=== PATIENT | female | born 1955 | race Caucasian/White ===

== ENCOUNTER 2020-05-25 12:35 | Outpatient (REF) | payer MEDICARE, OTHER, SELFPAY ==
--- NOTE | ~2020-05-25 | XR_ITS ---
EXAMINATION: XR SHOULDER, LEFT CLINICAL INFORMATION: Pain COMPARISON: None TECHNIQUE: AP external rotation, Grashey, scapular Y, and axillary views of the left shoulder. FINDINGS: No fracture or dislocation. The glenohumeral joint is well aligned. The joint space is maintained with small marginal osteophytes. The acromioclavicular joint is intact with mild hypertrophic degenerative change. The visualized ribs are intact. The visualized lung is clear. XR/XR shoulder LT min 2V IMPRESSION: Mild degenerative changes at the left shoulder.
== END 2020-05-25 12:36 | disposition home or self-care (01) ==
LOC: HO.XRAY 12:35
PROVIDERS: PCP Internal Medicine; Visit Provider Internal Medicine
DX: M25.512 Pain in left shoulder (principal)
CPT/HCPCS: 73030

== ENCOUNTER → 2020-08-08 14:01 | Outpatient (BNVA) | payer MEDICARE, OTHER, SELFPAY | PROVIDERS: PCP Internal Medicine; Visit Provider Urology | DX: N32.81 Overactive bladder (principal) | CPT/HCPCS: 99202 ==

== ENCOUNTER 2021-03-06 10:00 | Outpatient (REF) | payer MEDICARE, OTHER, SELFPAY ==
--- NOTE | ~2021-03-06 | CT_ITS ---
EXAMINATION: CT CHEST SCREENING CLINICAL INFORMATION: Smoker. One pack per day for 40 years. COMPARISON: CT chest 08/25/2019. TECHNIQUE: Multidetector volumetric CT imaging of the chest is performed without contrast using low dose technique. Additional 2D coronal and sagittal reformatted images and axial 3D maximum intensity projection (MIP) images are generated on the CT workstation. This CT examination was performed using dose optimization techniques as appropriate, variously including the following: *Automated exposure control *Adjustment of mA and/or kV according to patient size (this includes techniques or standardized protocols for targeted exams where dose is matched to indication/reason for exam; i.e. extremities or head) *Use of iterative reconstruction technique DLP: 50. mGy-cm FINDINGS: LUNGS: The lungs are well expanded and clear of acute pneumonic consolidation. There are clusters a small scattered nodules in the right lower lobe measuring 2-3 mm on axial image 246/6 through 254/6, 2 mm nodule right lower lobe axial image 274/6. No additional nodules seen. MEDIASTINUM: The thyroid lobes are symmetric and normal. The central trachea and the bronchi are widely patent. Heart size and the great vessels are normal caliber. No abnormal-sized mediastinal hilar lymph nodes seen. There is no pericardial effusion. PLEURA: There is no pleural effusion. No pleural mass or thickening. AXILLA: The axilla are bilaterally unremarkable. The chest wall is unremarkable. UPPER ABDOMEN: There are several hypodense liver lesions segment 6 and segment 8. There is focal fatty deposition posterior and superior to right hemidiaphragm. Question Bochdalek hernia. OSSEOUS STRUCTURES: No lytic or sclerotic process seen. CT/CT lung screening IMPRESSION: Stable scattered clustered of nodules right lower lobe. Fatty deposition posterior and superior to right hemidiaphragm, question Bochdalek hernia, stable. Hypodense lesion in the right and left hepatic lobe are stable, likely cyst. ASSESSMENT: Lung-RADS category 2: Benign RECOMMENDATION: Low-dose annual CT chest
--- NOTE | ~2021-03-06 | XR_ITS ---
EXAMINATION: XR SHOULDER, LEFT CLINICAL INFORMATION: Left shoulder pain. COMPARISON: 4 views of the left shoulder were obtained. TECHNIQUE: AP external rotation, Grashey, scapular Y, and axillary views of the left shoulder. FINDINGS: Mild left acromio clavicular degenerative joint changes are seen. There is no acute fracture or dislocation. The soft tissues are unremarkable. XR/XR shoulder LT min 2V IMPRESSION: Mild left acromioclavicular degenerative joint changes. No acute abnormality.
== END 2021-03-06 10:01 | disposition home or self-care (01) ==
LOC: HO.CT 10:00
PROVIDERS: PCP Internal Medicine; Visit Provider Physician Assistant Medical
DX: Z12.2 Encounter for screening for malignant neoplasm of respiratory organs (principal); F17.200 Nicotine dependence, unspecified, uncomplicated; M25.512 Pain in left shoulder
CPT/HCPCS: 71271; 73030

== ENCOUNTER 2021-04-17 10:07 | Outpatient (REF) | payer MEDICARE, OTHER, SELFPAY ==
[2021-04-17 10:43] LABS: MANUAL DIFF FLAG NO
[2021-04-17 10:48] LABS: Basophils Percent Auto 0.6 % (0-2); Eosinophils Absolute Auto 0.2 X10*3/uL (0.0-0.4); Eosinophils Percent Auto 2.7 % (0-4); Hematocrit 39.6 % (37.0-47.0); Hemoglobin 12.7 g/dl (12.0-16.0); Imm Gran Abs Auto 0.01 X10*3/uL (0.00-0.03); Imm Gran Pct Auto 0.2 % (0.0-0.4); Lymphocytes Absolute Auto 1.6 X10*3/uL (1.2-4.9); Mean Corpuscular HGB Conc 32.1 g/dl (31.0-35.0); Mean Corpuscular Hemoglobin 29.3 pg (27.0-33.0); Mean Corpuscular Volume 91.2 fL (80.0-98.0); Mean Platelet Volume 10.2 fL (9.4-12.3); Monocytes Absolute Auto 0.5 X10*3/uL (0.1-1.2); Monocytes Percent Auto 7.5 % (2-11); Neutrophils Absolute Auto 4.1 x10*3/uL (2.0-8.3); Platelet Count 233 X10*3/uL (160-400); Red Blood Count 4.34 X10*6/uL (4.20-5.50); Red Cell Distribution Width 13.7 % (11.0-16.0); White Blood Count 6.4 X10*3/uL (4.8-10.8)
[2021-04-17 10:56] LABS: Estimated Average Glucose 140 mg/dL; Hemoglobin A1c % 6.5 %
[2021-04-17 11:19] LABS: Alanine Aminotransferase 20 U/L (0-31); Albumin Level 4.1 g/dL (3.5-5.0); Alkaline Phosphatase 83 U/L (39-117); Anion Gap 16 (12-20); Aspartate Amino Transferase 17 U/L (5-31); Bilirubin Total 0.4 mg/dL (0.0-1.0); Blood Urea Nitrogen 11 mg/dL (9-16); Calcium 9.6 mg/dL (8.4-10.2); Carbon Dioxide 27 mmol/L (22-29); Chloride 100 mmol/L (96-108); Cholesterol 244 mg/dL; Estimated Glomerular Filt Rate > 60; Glucose Fasting 124 mg/dL (60-99); HDL Cholesterol 55 mg/dL; LDL Cholesterol Calculated 156 mg/dl; Potassium 4.7 mmol/L (3.3-5.1); Sodium 138 mmol/L (135-145); Total Protein 6.6 g/dL (6.5-8.0); Triglycerides 167 mg/dL
[2021-04-17 12:36] LABS: Creatinine Urine 16.42 mg/dL; Microalbumin Urine < 5.0 mg/L
== END 2021-04-17 10:08 | disposition home or self-care (01) ==
LOC: HO.LAB 10:07
PROVIDERS: PCP Internal Medicine; Visit Provider Internal Medicine
DX: Z00.00 Encounter for general adult medical examination without abnormal findings (principal); E11.9 Type 2 diabetes mellitus without complications; E03.9 Hypothyroidism, unspecified
CPT/HCPCS: 36415; 80053; 80061; 82043; 83036; 84443; 85025

== ENCOUNTER 2021-08-15 08:57 | Outpatient (REF) | payer MEDICARE, OTHER, SELFPAY ==
[2021-08-15 09:56] LABS: Estimated Average Glucose 137 mg/dL; Hemoglobin A1c % 6.4 %
[2021-08-15 10:09] LABS: Cholesterol 223 mg/dL; Glucose Fasting 139 mg/dL (60-99); HDL Cholesterol 56 mg/dL; LDL Cholesterol Calculated 128 mg/dl; Triglycerides 197 mg/dL
== END 2021-08-15 08:58 | disposition home or self-care (01) ==
LOC: HO.LAB 08:57
PROVIDERS: PCP Internal Medicine; Visit Provider Internal Medicine
DX: Z00.00 Encounter for general adult medical examination without abnormal findings (principal); E11.65 Type 2 diabetes mellitus with hyperglycemia
CPT/HCPCS: 36415; 80061; 82947; 83036

== ENCOUNTER 2022-02-27 11:17 | Outpatient (REF) | payer MEDICARE, OTHER, SELFPAY ==
[2022-02-27 12:29] LABS: Estimated Average Glucose 131 mg/dL; Hemoglobin A1c % 6.2 %
[2022-02-27 12:55] LABS: Cholesterol 197 mg/dL; Glucose Fasting 115 mg/dL (60-99); HDL Cholesterol 59 mg/dL; LDL Cholesterol Calculated 114 mg/dl; Triglycerides 122 mg/dL
== END 2022-02-27 11:18 | disposition home or self-care (01) ==
LOC: HO.LAB 11:17
PROVIDERS: PCP Internal Medicine; Visit Provider Internal Medicine
DX: E78.5 Hyperlipidemia, unspecified (principal); E11.65 Type 2 diabetes mellitus with hyperglycemia; N28.9 Disorder of kidney and ureter, unspecified
CPT/HCPCS: 36415; 80061; 82947; 83036

== ENCOUNTER 2022-09-16 07:52 | Outpatient (REF) | payer MEDICARE, OTHER, SELFPAY ==
[2022-09-16 08:30] LABS: Estimated Average Glucose 128 mg/dL; Hemoglobin A1c % 6.1 %
[2022-09-16 08:56] LABS: Alanine Aminotransferase 16 U/L (0-31); Albumin Level 3.9 g/dL (3.5-5.0); Alkaline Phosphatase 78 U/L (39-117); Anion Gap 10 (12-20); Aspartate Amino Transferase 15 U/L (5-31); Bilirubin Total 0.3 mg/dL (0.0-1.0); Blood Urea Nitrogen 6 mg/dL (9-16); Carbon Dioxide 27 mmol/L (22-29); Chloride 105 mmol/L (96-108); Cholesterol 173 mg/dL; Estimated Glomerular Filt Rate > 60; Glucose Fasting 136 mg/dL (60-99); HDL Cholesterol 55 mg/dL; LDL Cholesterol Calculated 102 mg/dl; Potassium 4.4 mmol/L (3.3-5.1); Sodium 138 mmol/L (135-145); Total Protein 6.3 g/dL (6.5-8.0); Triglycerides 80 mg/dL
== END 2022-09-16 07:53 | disposition home or self-care (01) ==
LOC: HO.LAB 07:52
PROVIDERS: PCP Internal Medicine; Visit Provider Internal Medicine
DX: N28.9 Disorder of kidney and ureter, unspecified (principal); R73.9 Hyperglycemia, unspecified; E78.5 Hyperlipidemia, unspecified
CPT/HCPCS: 36415; 80053; 80061; 83036

== ENCOUNTER 2022-09-19 09:38 | Outpatient (AMB) | payer MEDICARE, OTHER, SELFPAY ==
[2022-09-19 09:41] VITALS: BP 118/74; PULSE 90; O2SAT 99; BMI 31.7
--- NOTE | 2022-09-19 09:41 | MHC.PC.OV ---
Vital Signs 09/19/22 09:41 Height 5 ft 3 in Weight 179 lb BMI 31.7 BP 118/74 Blood Pressure Location Lt brachial Position Sitting Pulse 90 Pulse Source Pulse Oximeter Temp Source Skin Pulse Oximetry (%) 99 Oxygen Delivery Method Room Air Intake Visit Reasons: 3 month f/u DM Allergies SEASONAL ALLERGIES Allergy (Unknown, Uncoded 09/19/22 09:43) SNEEZING,ITCHY NOSE Medication List - Last Reconciled 09/19/22 by Donovan Medrano MD aspirin (Adult Aspirin Regimen) 81 mg PO DAILY atorvastatin 80 mg PO DAILY fluoxetine 40 mg (2 x 20 mg) PO DAILY lisinopril 10 mg PO DAILY metformin 500 mg PO BID omeprazole 20 mg PO DAILY tramadol 50 mg PO Q6H PRN valacyclovir 1,000 mg PO BID Tobacco use date assessed: 09/19/22 Fall risk assessment: No Falls in past year Last assessed Fall Risk: 09/19/22 Dental Screening Did you have a dental visit in the last 12 months?: Yes Did you have a dental problem in the last 6 months where you did not have access to dental care?: No Was dental information given to patient?: Patient has dentist HPI 3 month f/u DM HPI Details DM HTN and hyperlipidemia; compliant [facility] Medical History (Updated 05/29/22 @ 12:22 by Donovan Medrano MD) Diabetes mellitus Hyperlipidemia Obesity Type 2 diabetes mellitus with obesity Surgical History History of section History of hysterectomy Family History Father No problems noted. Mother No problems noted. Social History Housing: House Alcohol intake: current Alcohol intake frequency: a few times a week Patient Tobacco Use Status: Current everyday Tobacco user Tobacco use type: Cigarette Cigarette Packs Per Day: 1 Cigarettes Per Day: 20 e-Cigarette/Vaping Use: Never Used Second Hand Smoke Exposure: Yes service: No Current occupational status: retired Cognitive needs: No Hearing needs: No Vision needs: Yes (glasses) Questionnaire PHQ-9 Over the last 2 weeks, how often have you been bothered by any of the following problems? Depression Screening Interpretation: Negative Source: Developed by Drs. Levon LMagdalene Shultz Kurt Kroenke and colleagues, with an educational jigna from [employer]. Thrive Questionnaire Date Thrive assessed: 05/29/22 Currently or been in a relationship where the following occur: no concerns reported AUDIT C Alcohol Use Questionnaire (AUDIT-C) 1. How often do you have a drink containing alcohol?: 4 or more times a week 2. How many drinks containing alcohol do you have on a typical day when you are drinking?: 5 or 6 3. How often do you have six or more drinks on one occasion?: Never Total Score: 6 KAYLIE-7 AMB Questionnaire KAYLIE-7 Date KAYLIE - 7 assessed: 05/29/22 Source: Developed by Magadlene Trevino Kurt Kroenke and colleagues, with an educational jigna from [employer]. Review of Systems Const Denies chills, Denies headache(s) and Denies weight loss ENT Denies headache(s) Card Denies chest pain, Denies syncope, Denies irregular heart rhythm and Denies dyspnea Resp Denies chest congestion, Denies cough and Denies dyspnea GI Denies abdominal pain, Denies change in stool character, Denies nausea and Denies vomiting Musc Denies deformity and Denies joint swelling Neuro Denies syncope and Denies headache(s) Physical exam (Primary Care) Vital Signs: Last Vital Signs Pulse 90 09/19/22 09:41 BP 118/74 09/19/22 09:41 Pulse Ox 99 09/19/22 09:41 Oxygen Delivery Method Room Air 09/19/22 09:41 BMI result Body Mass Index 31.7 obesity BMI Assessment/Plan discussion: High BMI High, discussed plan: lifestyle, weight reduction and dietary Tobacco/Smoking Status: Tobacco use Status Tobacco use date assessed 09/19/22 09/19/22 09:45 Patient Tobacco Use Status Current everyday Tobacco 09/19/22 09:45 Tobacco use type Cigarette 09/19/22 09:45 e-Cigarette/Vaping Use Never Used 09/19/22 09:45 Depression Screening Interpretation: Negative Thrive Assessment: Date of Thrive Assessment Date Thrive assessed 05/29/22 09/19/22 09:45 Currently or been in a relationship where the following occur: no concerns reported Const General: cooperative and comfortable Chest Chest palpation & inspection: normal inspection of the chest Resp Auscultation: clear to auscultation bilaterally Percussion: percussion normal Cardio Jugular venous distension: no JVD Rate: regular rate Rhythm: regular rhythm Assessment and Plan Assessment & Plan (1) Hypertension: Code(s): I10 - Essential (primary) hypertension Plan: stable; samr rx (2) Hyperlipidemia: Code(s): E78.5 - Hyperlipidemia, unspecified Plan: stable; same rx (3) Type 2 diabetes mellitus with obesity: Code(s): E11.69 - Type 2 diabetes mellitus with other specified complication; E66.9 - Obesity, unspecified Plan: stable Orders: Orders Comprehensive Cle[place]. Panel Fast Today N28.9 - Disorder of kidney and ureter, unspecified Glucose Fasting Today R73.9 - Hyperglycemia, unspecified Thyroid Stimulating Hormone Today E03.9 - Hypothyroidism, unspecified Microalbumin, Random (w Creat) Today E11.69 - Type 2 diabetes mellitus with other specified complication, E66.01 - Morbid (severe) obesity due to excess calories Complete Blood Count Auto Diff Today D64.9 - Anemia, unspecified Hemoglobin A1c Today R73.9 - Hyperglycemia, unspecified Coding Level of Care Code Est Pt Level 4 (14132) Diagnoses Hypertension I10 Hyperlipidemia E78.5 Type 2 diabetes mellitus with obesity E11.69; E66.9
== END 2022-09-19 09:54 | disposition home or self-care (01) ==
PROVIDERS: PCP Internal Medicine; Visit Provider Internal Medicine
DX: I10 Essential (primary) hypertension (principal); E11.69 Type 2 diabetes mellitus with other specified complication; E66.9 Obesity, unspecified; Z68.31 Body mass index [BMI] 31.0-31.9, adult; E78.5 Hyperlipidemia, unspecified
CPT/HCPCS: 99214

== ENCOUNTER 2023-01-15 08:28 | Outpatient (REF) | payer MEDICARE, OTHER, SELFPAY ==
--- NOTE | ~2023-01-15 | CT_ITS ---
EXAMINATION: CT CHEST SCREENING CLINICAL INFORMATION: Smoker with 50 pack-year history. COMPARISON: Previous CTs, most recent, 03/06/2021 TECHNIQUE: Multidetector volumetric CT imaging of the chest is performed without contrast using low dose technique. Additional 2D coronal and sagittal reformatted images and axial 3D maximum intensity projection (MIP) images are generated on the CT workstation. This CT examination was performed using dose optimization techniques as appropriate, variously including the following: *Automated exposure control *Adjustment of mA and/or kV according to patient size (this includes techniques or standardized protocols for targeted exams where dose is matched to indication/reason for exam; i.e. extremities or head) *Use of iterative reconstruction technique DLP: 51 mGy-cm FINDINGS: IMPLEMENT MECHANIC: Clear lungs. Scoliosis. LUNGS: Trachea and bronchi are patent. Mild centrilobular emphysema. Several interval nodular opacities right middle lobe, largest 6 mm, 6:326. Increasing RML irregular reticulonodular opacities, axial images 6:325-355. On sagittal image 8:97, the more superior reticulonodular opacity with pleural extension measures 1.5 cm cm with somewhat branching pattern, and on 8:98, more inferior 1.0 cm nodular opacity demonstrates tethering to the pleura. Cluster of nodules in the right lower lobe have resolved. MEDIASTINUM: Unremarkable thyroid. No pathologic lymphadenopathy. Nonenlarged heart. Mild pericardial thickening/fluid. Atherosclerotic calcifications nonaneurysmal aorta. Nonenlarged pulmonary arteries. CORONARY ARTERY CALCIFICATION: Mild. PLEURA: There is no pleural effusion. No pleural mass or thickening. AXILLA: No pathologic lymphadenopathy. UPPER ABDOMEN: Redemonstration multiple hepatic hypodensities. Right Bochdalek again suspected. OSSEOUS STRUCTURES: No suspicious osseous lesions. CT/CT lung screening IMPRESSION: Increasing right middle lobe nodular/nodular opacities. ASSESSMENT: Lung-RADS category 4B: Suspicious RECOMMENDATION: Further evaluation with PET/CT. Tissue sampling may also be considered depending on probability of malignancy and comorbidities. Consider one month follow-up LDCT to address potentially infectious, inflammatory conditions and/or mucus plugging/atelectasis.
== END 2023-01-15 08:29 | disposition home or self-care (01) ==
LOC: HO.CT 08:28
PROVIDERS: PCP Internal Medicine; Visit Provider Physician Assistant Medical
DX: Z12.2 Encounter for screening for malignant neoplasm of respiratory organs (principal); F17.210 Nicotine dependence, cigarettes, uncomplicated
CPT/HCPCS: 71271

== ENCOUNTER 2023-03-19 10:29 | Outpatient (AMB) | payer MEDICARE, OTHER, SELFPAY ==
[2023-03-19 10:35] VITALS: BP 112/80; PULSE 93; O2SAT 98; BMI 33.3
--- NOTE | 2023-03-19 10:35 | A.OFFVIS_ITS ---
Intake Vital Signs 03/19/23 10:35 Height 5 ft 3 in Weight 188 lb BMI 33.3 BP 112/80 Blood Pressure Location Lt brachial Position Sitting Pulse 93 Pulse Source Pulse Oximeter Pulse Oximetry (%) 98 Oxygen Delivery Method Room Air Intake Visit Reasons: Pulmonary Nodule Intake Note: pt is here for a follow up to a low dose ct scan, and she states some wheezing and shortness of breath only with exertion and can quickly catch her breath. walking is ok mostly stairs. 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 The last low-dose CT scan on 01/15/2023, showed nodular opacity in the right middle lobe increasing in the size now measuring 1.5 cm, extending to the pleura. She also has multiple nodules for which she was being watched. Patient has been discussed in the multidisciplinary conference. Determine to have 4B, lung density, Patient has been referred to see me, in the past I have taken care of her as a primary care physician. As mentioned above she continues to smoke. Complains of mild. Intermittent cough without much expectoration She has mild dyspnea on walking around but to 8 goes away as soon as she sits and rests. She has not been evaluated with pulmonary function test and is not using any bronchodilator inhalers. She has had no recent weight loss. [facility] Medical History (Updated 03/19/23 @ 11:26 by Treva Powers MD) COPD (chronic obstructive pulmonary disease) Smoker Hyperlipidemia Obesity Type 2 diabetes mellitus with obesity Diabetes mellitus Surgical History History of section History of hysterectomy Family History Father No problems noted. Mother No problems noted. Social History Housing: House Alcohol intake: current Alcohol intake frequency: a few times a week Patient Tobacco Use Status: Current everyday Tobacco user Tobacco use type: Cigarette Cigarette Packs Per Day: 1 Cigarettes Per Day: 20 e-Cigarette/Vaping Use: Never Used Second Hand Smoke Exposure: Yes service: No Current occupational status: retired Cognitive needs: No Hearing needs: No Vision needs: Yes (glasses) Review of Systems Const All systems reviewed & are unremarkable except as noted in HPI and below Eyes Reports no additional complaints ENT Reports nasal congestion (mild off and on .) Card Denies chest pain, Denies irregular heart rhythm and Denies leg edema Resp Reports as per HPI GI Reports heartburn (Treated with omeprazole) Reports no additional complaints Musc Reports back pain and Reports myalgias Skin/Breast Reports system reviewed and no additional complaints, except as documented Neuro Reports no additional complaints Psych Reports depression (Treated with med) Endo Reports other (Being treated for diabetes mellitus) Mando/Lymph Reports no additional complaints Aller/Immun Reports no additional complaints Physical Exam Vital Signs: Last Vital Signs Pulse 93 03/19/23 10:35 BP 112/80 03/19/23 10:35 Pulse Ox 98 03/19/23 10:35 Oxygen Delivery Method Room Air 03/19/23 10:35 BMI result Body Mass Index 33.3 Const General: comfortable, no acute distress, alert and awake Orientation/consciousness: patient oriented x3 HEENT Head: Yes normal to inspection General nose exam: No nasal polyps present, No nasal discharge present and Other nasal findings present (Mild nasal congestion) Face and sinus: Yes sinuses nontender Mouth: oropharynx normal Throat: Yes posterior oropharynx normal Eyes General: appearance normal, both eyes and all related structures Neck Neck: Yes normal visual inspection, Yes no lymphadenopathy, Yes trachea midline and Yes no JVD Thyroid: Thyroid normal Chest Chest palpation & inspection: normal inspection of the chest, normal palpation of entire chest wall and no tenderness Resp Other: Percussion note resonant, breath sounds are equal on both sides slightly distant with prolonged expiratory phase. No definite wheezes or crepitations are heard. Cardio Palpation: normal PMI Rate: regular rate Rhythm: regular rhythm Heart sounds: no gallops and no murmurs Peripheral pulses: Peripheral pulses 2+ throughout GI Palpation (GI): Soft to palpation, nontender, No hepatosplenomegaly present and no masses Auscultation: normal bowel sounds Back/Spine/Pelvis Thoracic/Lumbar Spine: thoracic and lumbar spine normal to inspection Skin General skin exam: no rashes or lesions noted Neuro General: patient oriented x3 and no focal motor deficits Cranial nerves: Yes CN's II-XII intact bilaterally Extrem General: Yes normal to inspection, Yes no clubbing, cyanosis or edema and Yes no calf tenderness Psych Appearance: grossly normal and well kempt Speech and movement: Normal speech and movement present Assessment & Plan Assessment & Plan (1) Smoker: Comment: Active smoker, for about 49 years, 1 pack a day. Code(s): F17.200 - Nicotine dependence, unspecified, uncomplicated Plan: Talked to her about smoking and smoking cessation. She has tried nicotine patch with good effect in the past but then goes back to smoking. AGREED TO GO ON NICOTINE PATCH 21 MG A DAY, which is being ordered. (2) Pulmonary nodule: Comment: Patient is in annual lung screening program, . Has multiple small pulmonary nodules One particular nodule is in right mid lobe , Nodular opacity extending to the pleural surface, 1.5 cm in size. Suspicious. In addition cluster of nodules in the right lower lobe. Code(s): R91.1 - Solitary pulmonary nodule Plan: Had a good discussion. With the patient Next step would be to repeat CT scan , and if the nodular density is still of the same size are increased then proceed with PET CT scan. Explained to the patient in detail. (3) COPD (chronic obstructive pulmonary disease): Comment: Patient does have symptoms of mild COPD but she has not been evaluated for that and is not on any active treatment Code(s): J44.9 - Chronic obstructive pulmonary disease, unspecified Plan: Pulmonary function test. And then evaluate if she needs any ongoing bronchodilator therapy. Orders: Orders PFT pulmonary function test Today F17.200 - Nicotine dependence, unspecified, uncomplicated, J44.9 - Chronic obstructive pulmonary disease, unspecified, R91.1 - Solitary pulmonary nodule CT chest wo IV con Today F17.200 - Nicotine dependence, unspecified, uncomplicated Medications: New nicotine 1 patch transdermal Q24H 28 ea 2RF smoking 28 days Coding Level of Care Code New Pt Level 3 (60821) Diagnoses Smoker F17.200 Pulmonary nodule R91.1 COPD (chronic obstructive pulmonary disease) J44.9
== END 2023-03-19 11:13 | disposition home or self-care (01) ==
PROVIDERS: PCP Internal Medicine; Visit Provider Internal Medicine
DX: F17.200 Nicotine dependence, unspecified, uncomplicated (principal); R91.1 Solitary pulmonary nodule; J44.9 Chronic obstructive pulmonary disease, unspecified
CPT/HCPCS: 99203

== ENCOUNTER → 2023-03-19 10:29 | Outpatient (BNVA) | payer MEDICARE, OTHER, SELFPAY | PROVIDERS: PCP Internal Medicine; Visit Provider Internal Medicine | DX: J44.9 Chronic obstructive pulmonary disease, unspecified (principal); R91.1 Solitary pulmonary nodule; F17.210 Nicotine dependence, cigarettes, uncomplicated | CPT/HCPCS: 99202 ==

== ENCOUNTER 2023-03-20 08:21 | Outpatient (REF) | payer MEDICARE, OTHER, SELFPAY ==
--- NOTE | 2023-03-20 09:53 | PFT_ITS ---
Flows: FEV1: 53 % of predicted at 1.14 L FVC: 80 % of predicted at 2.22 L FEV1/FVC: 51 % Bronchodilator response: Present Volumes: Total lung capacity: 90 % of predicted at 4.32 L Residual volume: 124 % of predicted at 2.30 L Slow vital capacity: 69 % of predicted at 2.02 L Expiratory reserve volume: 82 % of predicted at 0.58 L Diffusion capacity: Mildly decreased, corrects to normal after adjustment for alveolar ventilation. Impression: Moderate to severe obstructive ventilatory defect with positive bronchodilator response. Increased residual volume suggests air trapping. Decreased diffusion capacity suggests emphysema. MTDD
== END 2023-03-20 08:22 | disposition home or self-care (01) ==
LOC: HO.RESP 08:21
PROVIDERS: PCP Internal Medicine; Visit Provider Internal Medicine
DX: J44.9 Chronic obstructive pulmonary disease, unspecified (principal); R91.1 Solitary pulmonary nodule; F17.200 Nicotine dependence, unspecified, uncomplicated
CPT/HCPCS: 94010; 94727; 94729

== ENCOUNTER → 2023-03-20 09:53 | Outpatient (BNV) | payer MEDICARE, OTHER, SELFPAY | PROVIDERS: PCP Internal Medicine; Visit Provider Internal Medicine Pulmonary Disease | DX: J44.9 Chronic obstructive pulmonary disease, unspecified (principal); F17.210 Nicotine dependence, cigarettes, uncomplicated | CPT/HCPCS: 94060; 94727; 94729 ==

== ENCOUNTER 2023-04-24 09:24 | Outpatient (AMB) | payer MEDICARE, OTHER, SELFPAY ==
[2023-04-24 09:38] VITALS: BP 110/70; PULSE 87; O2SAT 98; BMI 33.3
--- NOTE | 2023-04-24 09:38 | MHC.OFFVIS ---
Intake Vital Signs 04/24/23 09:38 Height 5 ft 3 in Weight 188 lb BMI 33.3 BP 110/70 Blood Pressure Location Lt brachial Position Sitting Pulse 87 Pulse Source Pulse Oximeter Pulse Oximetry (%) 98 Oxygen Delivery Method Room Air Intake Visit Reasons: Pulmonary Nodule Intake Note: pt is here for follow up and she states she thinks her breathing is good. Soil Conservationist Required: No Allergies SEASONAL ALLERGIES Allergy (Unknown, Uncoded 04/24/23 09:45) SNEEZING,ITCHY NOSE Medication List - Last Reconciled 04/24/23 by Treva Powers MD aspirin (Adult Aspirin Regimen) 81 mg PO DAILY atorvastatin 80 mg PO DAILY fluoxetine 40 mg (2 x 20 mg) PO DAILY lisinopril 10 mg PO DAILY metformin 500 mg PO BID nicotine 1 patch transdermal Q24H 28 days omeprazole 20 mg PO DAILY tramadol 50 mg PO Q6H PRN Do you need a note to return to daycare/school/sports/work: No HPI Pulmonary Nodule HPI Details 68 years old female a lifelong smoker, who has COPD. And the CT scan showing multiple pulmonary nodules but 1 in right middle lobe, increased in size to 1.5 cm. She has been using Flovent-110 but only as needed does not have any rescue inhaler on hand. Since her last visit she has had pulmonary function test which shows moderate to severe obstructive pulmonary disorder with some response to bronchodilator therapy. She claims that breathing villaotro she is doing, okay except for mild intermittent cough and mild shortness of breath on exertion. She was started on nicotine patch 21 , mg daily which she has been applying but still smoking about 1 pack of cigarettes a day. 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 [facility] Medical History (Updated 04/24/23 @ 10:09 by Treva Powers MD) COPD (chronic obstructive pulmonary disease) Smoker Hyperlipidemia Obesity Type 2 diabetes mellitus with obesity Diabetes mellitus Surgical History History of section History of hysterectomy Family History Father No problems noted. Mother No problems noted. Social History Housing: House Alcohol intake: current Alcohol intake frequency: a few times a week Patient Tobacco Use Status: Current everyday Tobacco user Tobacco use type: Cigarette Cigarette Packs Per Day: 1 Cigarettes Per Day: 20 e-Cigarette/Vaping Use: Never Used Second Hand Smoke Exposure: Yes service: No Current occupational status: retired Cognitive needs: No Hearing needs: No Vision needs: Yes (glasses) Review of Systems Const All systems reviewed & are unremarkable except as noted in HPI and below Eyes Reports no additional complaints ENT Reports nasal congestion (mild off and on .) Card Denies chest pain, Denies irregular heart rhythm and Denies leg edema Resp Reports as per HPI GI Reports heartburn (Treated with omeprazole) Reports no additional complaints Musc Reports back pain and Reports myalgias Skin/Breast Reports system reviewed and no additional complaints, except as documented Neuro Reports no additional complaints Psych Reports depression (Treated with med) Endo Reports other (Being treated for diabetes mellitus) Mando/Lymph Reports no additional complaints Aller/Immun Reports no additional complaints Physical Exam Vital Signs: Last Vital Signs Pulse 87 04/24/23 09:38 BP 110/70 04/24/23 09:38 Pulse Ox 98 04/24/23 09:38 Oxygen Delivery Method Room Air 04/24/23 09:38 BMI result Body Mass Index 33.3 Const General: comfortable, no acute distress, alert and awake Orientation/consciousness: patient oriented x3 HEENT Head: Yes normal to inspection General nose exam: No nasal polyps present, No nasal discharge present and Other nasal findings present (Mild nasal congestion) Face and sinus: Yes sinuses nontender Mouth: oropharynx normal Throat: Yes posterior oropharynx normal Eyes General: appearance normal, both eyes and all related structures Neck Neck: Yes normal visual inspection, Yes no lymphadenopathy, Yes trachea midline and Yes no JVD Thyroid: Thyroid normal Chest Chest palpation & inspection: normal inspection of the chest, normal palpation of entire chest wall and no tenderness Resp Other: Percussion note resonant, breath sounds are equal on both sides slightly distant with prolonged expiratory phase. No definite wheezes or crepitations are heard. Cardio Palpation: normal PMI Rate: regular rate Rhythm: regular rhythm Heart sounds: no gallops and no murmurs Peripheral pulses: Peripheral pulses 2+ throughout GI Palpation (GI): Soft to palpation, nontender, No hepatosplenomegaly present, no masses and Other GI palpation findings present (Abdomen is protuberant) Auscultation: normal bowel sounds Back/Spine/Pelvis Thoracic/Lumbar Spine: thoracic and lumbar spine normal to inspection Skin General skin exam: no rashes or lesions noted Neuro General: patient oriented x3 and no focal motor deficits Cranial nerves: Yes CN's II-XII intact bilaterally Extrem General: Yes normal to inspection, Yes no clubbing, cyanosis or edema and Yes no calf tenderness Psych Appearance: grossly normal and well kempt Speech and movement: Normal speech and movement present Results Reviewed Results Reviewed: Pulmonary function test on 03/20/2023 shows moderately severe obstructive airway disorder with positive bronchodilator response REPEAT CT SCAN AWAITING, WILL BE DONE ON MAY 04. SHE HAS LAP TESTS ORDER PENDING. Assessment & Plan Assessment & Plan (1) COPD (chronic obstructive pulmonary disease): Comment: PER PFT, SHE HAS MODERATELY SEVERE OBSTRUCTIVE AIRWAY DISORDER, WITH POSITIVE RESPONSE TO BD. THERAPY Code(s): J44.9 - Chronic obstructive pulmonary disease, unspecified Plan: ADVISED TO QUIT SMOKING. WIXELA. 500-51 INHALATION B.I.D. PROAIR HFA 2 PUFFS Q 6 HOURS P.R.N. SCRIPTS SENT (2) Smoker: Comment: Active smoker, for about 49 years, 1 pack a day. Code(s): F17.200 - Nicotine dependence, unspecified, uncomplicated Plan: DISCUSSED IN DETAIL ABOUT SMOKING CESSATION. CONTINUE NICOTINE PATCH 21 MG DAILY AND CUT DOWN THE CIGARETTES TO HALF PACK A DAY AND THEN TO 5 CIGARETTES A DAY AND THEN QUIT. RISK. OF CONTINUED SMOKING EXPLAINED (3) Pulmonary nodule: Comment: Patient is in annual lung screening program, . Has multiple small pulmonary nodules One particular nodule is in right mid lobe , Nodular opacity extending to the pleural surface, 1.5 cm in size. Suspicious. In addition cluster of nodules in the right lower lobe. Code(s): R91.1 - Solitary pulmonary nodule Plan: PATIENT IS GOING TO HAVE REPEAT CT SCAN OF THE CHEST NEXT WEEK. COMPLETE LAP TESTS ARE ORDERED. BY HER PCP Coding Level of Care Code Est Pt Level 3 (65278) Diagnoses COPD (chronic obstructive pulmonary disease) J44.9 Smoker F17.200 Pulmonary nodule R91.1
== END 2023-04-24 10:04 | disposition home or self-care (01) ==
PROVIDERS: PCP Internal Medicine; Visit Provider Internal Medicine
DX: J44.9 Chronic obstructive pulmonary disease, unspecified (principal); F17.200 Nicotine dependence, unspecified, uncomplicated; R91.1 Solitary pulmonary nodule
CPT/HCPCS: 99213

== ENCOUNTER → 2023-04-24 09:24 | Outpatient (BNVA) | payer MEDICARE, OTHER, SELFPAY | PROVIDERS: PCP Internal Medicine; Visit Provider Internal Medicine | DX: R91.1 Solitary pulmonary nodule (principal); J44.9 Chronic obstructive pulmonary disease, unspecified; F17.210 Nicotine dependence, cigarettes, uncomplicated | CPT/HCPCS: 99212 ==

== ENCOUNTER 2023-04-25 08:52 | Outpatient (REF) | payer MEDICARE, OTHER, SELFPAY ==
[2023-04-25 09:11] LABS: MANUAL DIFF FLAG NO
[2023-04-25 09:26] LABS: Basophils Absolute Auto 0.1 X10*3/uL (0.0-0.2); Basophils Percent Auto 1.2 % (0-2); Eosinophils Absolute Auto 0.2 X10*3/uL (0.0-0.4); Eosinophils Percent Auto 4.2 % (0-4); Hematocrit 31.5 % (37.0-47.0); Hemoglobin 9.8 g/dl (12.0-16.0); Imm Gran Abs Auto 0.01 X10*3/uL (0.00-0.03); Imm Gran Pct Auto 0.2 % (0.0-0.4); Lymphocytes Percent Auto 19.3 % (20-40); Mean Corpuscular HGB Conc 31.1 g/dl (31.0-35.0); Mean Corpuscular Hemoglobin 24.3 pg (27.0-33.0); Mean Platelet Volume 9.7 fL (9.4-12.3); Monocytes Absolute Auto 0.4 X10*3/uL (0.1-1.2); Monocytes Percent Auto 8.1 % (2-11); Neutrophils Absolute Auto 3.5 x10*3/uL (2.0-8.3); Platelet Count 285 X10*3/uL (160-400); Red Blood Count 4.04 X10*6/uL (4.20-5.50); Red Cell Distribution Width 17.6 % (11.0-16.0); White Blood Count 5.2 X10*3/uL (4.8-10.8)
[2023-04-25 09:37] LABS: Estimated Average Glucose 131 mg/dL; Hemoglobin A1c % 6.2 % (<6.0)
[2023-04-25 09:50] LABS: Creatinine Urine 94.49 mg/dL; Microalbum/Creatinine Ratio Ur 11.6 ug/mg cr (<30)
[2023-04-25 10:04] LABS: Alanine Aminotransferase 22 U/L (0-31); Albumin Level 4.4 g/dL (3.5-5.0); Alkaline Phosphatase 88 U/L (39-117); Anion Gap 15 (12-20); Aspartate Amino Transferase 23 U/L (5-31); Bilirubin Total 0.3 mg/dL (0.0-1.0); Blood Urea Nitrogen 9 mg/dL (9-16); Calcium 9.8 mg/dL (8.4-10.2); Carbon Dioxide 26 mmol/L (22-29); Chloride 99 mmol/L (96-108); Estimated Glomerular Filt Rate > 60; Glucose Fasting 133 mg/dL (60-99); Potassium 4.6 mmol/L (3.3-5.1); Sodium 135 mmol/L (135-145); Total Protein 7.2 g/dL (6.5-8.0)
[2023-04-25 10:10] LABS: Thyroid Stimulating Hormone 1.27 uIU/mL (0.32-4.0)
== END 2023-04-25 08:53 | disposition home or self-care (01) ==
LOC: HO.LAB 08:52
PROVIDERS: PCP Internal Medicine; Visit Provider Internal Medicine
DX: D64.9 Anemia, unspecified (principal); N28.9 Disorder of kidney and ureter, unspecified; E11.69 Type 2 diabetes mellitus with other specified complication; E66.01 Morbid (severe) obesity due to excess calories; E03.9 Hypothyroidism, unspecified; E11.65 Type 2 diabetes mellitus with hyperglycemia
CPT/HCPCS: 36415; 80053; 82043; 82570; 83036; 84443; 85025

== ENCOUNTER 2023-04-29 11:16 | Outpatient (AMB) | payer MEDICARE, OTHER, SELFPAY ==
[2023-04-29 11:20] VITALS: BP 140/72; PULSE 94; O2SAT 98; BMI 32.9
--- NOTE | 2023-04-29 11:20 | MHC.PC.OV ---
Vital Signs 04/29/23 11:20 Height 5 ft 3 in Weight 186 lb BMI 32.9 BP 140/72 H Blood Pressure Location Lt brachial Position Sitting Pulse 94 Pulse Source Pulse Oximeter Pulse Oximetry (%) 98 Oxygen Delivery Method Room Air Intake Visit Reasons: Follow up Utility System Operator Required: No Contract Negotiation Manager: Not Required per policy Accompanied by: Self / Same As Patient Allergies SEASONAL ALLERGIES Allergy (Unknown, Uncoded 04/29/23 11:20) SNEEZING,ITCHY NOSE Medication List - Last Reconciled 04/29/23 by Donovan Medrano MD albuterol sulfate 90 mcg/actuation 2 puffs inhalation Q4-6H PRN 30 days aspirin (Adult Aspirin Regimen) 81 mg PO DAILY atorvastatin 80 mg PO DAILY fluoxetine 40 mg (2 x 20 mg) PO DAILY fluticasone propion-salmeterol 500-50 mcg/dose (Wixela Inhub) 1 inh inhalation BID 30 days lisinopril 10 mg PO DAILY metformin 500 mg PO BID nicotine 1 patch transdermal Q24H 28 days omeprazole 20 mg PO DAILY tramadol 50 mg PO Q6H PRN Tobacco use date assessed: 04/29/23 Fall risk assessment: No Falls in past year Last assessed Fall Risk: 04/29/23 Dental Screening Dental Screen Date: 04/29/23 Did you have a dental visit in the last 12 months?: No Did you have a dental problem in the last 6 months where you did not have access to dental care?: No Was dental information given to patient?: Patient has dentist HPI Follow up HPI Details hyperlipidemia copd and positive lung ct screen; awaiting bx; has become anemic [facility] Medical History (Updated 04/24/23 @ 10:09 by Treva Powers MD) COPD (chronic obstructive pulmonary disease) Smoker Hyperlipidemia Obesity Type 2 diabetes mellitus with obesity Diabetes mellitus Surgical History History of section History of hysterectomy Family History Father No problems noted. Mother No problems noted. Social History Housing: House Alcohol intake: current Alcohol intake frequency: a few times a week Patient Tobacco Use Status: Current everyday Tobacco user Tobacco use type: Cigarette Cigarette Packs Per Day: 1 Cigarettes Per Day: 20 e-Cigarette/Vaping Use: Never Used Second Hand Smoke Exposure: Yes service: No Current occupational status: retired Cognitive needs: No Hearing needs: No Vision needs: Yes (glasses) Questionnaire PHQ-9 Over the last 2 weeks, how often have you been bothered by any of the following problems? 1. Little interest or pleasure in doing things: not at all 2. Feeling down, depressed, or hopeless: not at all 3. Trouble falling or staying asleep, or sleeping too much: not at all 4. Feeling tired or having little energy: not at all 5. Poor appetite or overeating: not at all 6. Feeling bad about yourself - or that you are a failure or have let yourself or your family down: not at all 7. Trouble concentrating on things, such as reading the newspaper or watching television: not at all 8. Moving or speaking so slowly that other people could have noticed. Or the opposite - being so fidgety or restless that you have been moving around a lot more than usual: not at all 9. Thoughts that you would be better off or of hurting yourself in some way: not at all Total score: 0 Source: Developed by Drs. Levon Rodriguez, Magdalene Morrison, Ranjan Marcano and colleagues, with an educational jigna from [employer]. Thrive Questionnaire Date Thrive assessed: 04/29/23 I am a: Patient What is your living situation today?: I have a steady place to live Within the past 12 months, did the food you bought not last and you didn't have the money to get more?: Never true Within the past 12 months, did you worry whether your food would run out before you got money to buy more?: Never true Do you have trouble paying for medicines?: No Do you have trouble getting transportation to medical appointments?: No Do you have trouble paying your heating and electricity bill?: No Do you have trouble taking care of your child, family member or friend?: No Do you have trouble with day-to-day activities such as bathing, preparing meals, shopping, managing finances, etc.?: No Are you currently unemployed and looking for a job?: No Are you interested in more education?: No Please select the resources that you would like help with: None THRIVE Score: 0 AUDIT C Alcohol Use Questionnaire (AUDIT-C) 1. How often do you have a drink containing alcohol?: 4 or more times a week 2. How many drinks containing alcohol do you have on a typical day when you are drinking?: 5 or 6 3. How often do you have six or more drinks on one occasion?: Never Total Score: 6 KAYLIE-7 AMB Questionnaire KAYLIE-7 Date KAYLIE - 7 assessed: 04/29/23 Feeling nervous, anxious, or on edge: 0 = Not at all Not being able to stop or control worryin = Not at all Worrying too much about different things: 0 = Not at all Trouble relaxin = Not at all Being so restless that it is hard to sit still: 0 = Not at all Becoming easily annoyed or irritable: 0 = Not at all Feeling afraid as if something awful might happen: 0 = Not at all Total KAYLIE-7 score (0-4 normal; 5-9 mild; 10-14 moderate; 15-21 severe): 0 Source: Developed by Drs. Levon Rodriguez, Magdalene Morrison, Ranjan Marcano and colleagues, with an educational jigna from [employer]. Review of Systems Const Denies chills, Denies headache(s) and Denies weight loss ENT Denies headache(s) Card Denies chest pain, Denies syncope, Denies irregular heart rhythm and Denies dyspnea Resp Denies chest congestion, Denies cough and Denies dyspnea GI Denies abdominal pain, Denies change in stool character, Denies nausea and Denies vomiting Musc Denies deformity and Denies joint swelling Neuro Denies syncope and Denies headache(s) Physical exam (Primary Care) Vital Signs: Last Vital Signs Pulse 94 04/29/23 11:20 BP 140/72 H 04/29/23 11:20 Pulse Ox 98 04/29/23 11:20 Oxygen Delivery Method Room Air 04/29/23 11:20 BMI result Body Mass Index 32.9 Tobacco/Smoking Status: Tobacco use Status Tobacco use date assessed 04/29/23 04/29/23 11:22 Patient Tobacco Use Status Current everyday Tobacco 04/29/23 11:22 Tobacco use type Cigarette 04/29/23 11:22 e-Cigarette/Vaping Use Never Used 04/29/23 11:22 PHQ-9: PHQ-9 Score PHQ-9: Total score 0 04/29/23 11:26 Thrive Assessment: Date of Thrive Assessment Date Thrive assessed 04/29/23 04/29/23 11:22 Const General: cooperative, comfortable, no acute distress and alert Neck Neck: Yes no lymphadenopathy Thyroid: Thyroid normal Resp Effort & Inspection: normal respiratory effort Auscultation: clear to auscultation bilaterally Percussion: percussion normal Cardio Jugular venous distension: no JVD Palpation: normal PMI Rate: regular rate Rhythm: regular rhythm Heart sounds: S1 normal heart sound present and S2 normal heart sound present GI Inspection: Yes normal to inspection Palpation (GI): No hepatosplenomegaly present Skin General skin exam: no rashes or lesions noted Extrem General: Yes no clubbing, cyanosis or edema Assessment and Plan Assessment & Plan (1) COPD (chronic obstructive pulmonary disease): Comment: PER PFT, SHE HAS MODERATELY SEVERE OBSTRUCTIVE AIRWAY DISORDER, WITH POSITIVE RESPONSE TO BD. THERAPY Code(s): J44.9 - Chronic obstructive pulmonary disease, unspecified Plan: as per pulmonary (2) Pulmonary nodule: Comment: Patient is in annual lung screening program, . Has multiple small pulmonary nodules One particular nodule is in right mid lobe , Nodular opacity extending to the pleural surface, 1.5 cm in size. Suspicious. In addition cluster of nodules in the right lower lobe. Code(s): R91.1 - Solitary pulmonary nodule Plan: as per pulm (3) Hyperlipidemia: Code(s): E78.5 - Hyperlipidemia, unspecified Plan: stable; same rx Orders: Orders Complete Blood Count Auto Diff Today D64.9 - Anemia, unspecified IRON PROFILE Today E61.1 - Iron deficiency Coding Level of Care Code Est Pt Level 4 (28818) Diagnoses COPD (chronic obstructive pulmonary disease) J44.9 Pulmonary nodule R91.1 Hyperlipidemia E78.5
== END 2023-04-29 11:42 | disposition home or self-care (01) ==
PROVIDERS: PCP Internal Medicine; Visit Provider Internal Medicine
DX: J44.9 Chronic obstructive pulmonary disease, unspecified (principal); R91.1 Solitary pulmonary nodule; E78.5 Hyperlipidemia, unspecified
CPT/HCPCS: 99214

== ENCOUNTER 2023-05-05 10:25 | Outpatient (REF) | payer MEDICARE, OTHER, SELFPAY ==
--- NOTE | ~2023-05-05 | CT_ITS ---
EXAMINATION: CT CHEST SCREENING CLINICAL INFORMATION: Solitary pulmonary nodule; 1 ppd, current smoker, 50 pack years. COMPARISON: CT lung screening 01/15/2023. TECHNIQUE: Multidetector volumetric CT imaging of the chest is performed without contrast using low dose technique. Additional 2D coronal and sagittal reformatted images and axial 3D maximum intensity projection (MIP) images are generated on the CT workstation. This CT examination was performed using dose optimization techniques as appropriate, variously including the following: *Automated exposure control. *Adjustment of mA and/or kV according to patient size (this includes techniques or standardized protocols for targeted exams where dose is matched to indication/reason for exam; i.e. extremities or head). *Use of iterative reconstruction technique. DLP: 49 mGy-cm FINDINGS: LUNGS: Mild emphysema is again seen. Mild Peribronchial thickening is present. Previously seen csip-lp-oal-type opacities in the right middle lobe appear improved and smaller but not resolved. This can be best seen comparing sagittal image 8:98 on the current study with 8:97 on the prior exam. There is a 3 mm nodular density in the azygos esophageal recess in the right lower lobe unchanged (5:289 compare prior 5:280). No new or concerning lung nodules. MEDIASTINUM: Heart size is normal. The thyroid is unremarkable. No mediastinal or hilar lymphadenopathy. Trace pericardial effusion anteriorly. CORONARY ARTERY CALCIFICATION: Mild. PLEURA: There is no pleural effusion. No pleural mass or thickening. AXILLA: No lymphadenopathy. UPPER ABDOMEN: At least 3 water density hepatic cysts are seen and unchanged. Atherosclerotic plaque present in the abdominal aorta. A Bochdalek hernia containing only fat is present and unchanged. OSSEOUS STRUCTURES: Degenerative changes are present in the spine. CT/CT lung screen follow up IMPRESSION: Improving branching densities in the right middle lobe most likely inflammatory in nature. Would recommend one additional follow-up in 6 months prior to returning to yearly surveillance. ASSESSMENT: Lung-RADS category 3: Probably Benign. RECOMMENDATION: Short interval 6 month follow up low dose CT chest.
[2023-05-05 11:18] LABS: MANUAL DIFF FLAG NO
[2023-05-05 11:40] LABS: Basophils Absolute Auto 0.1 X10*3/uL (0.0-0.2); Eosinophils Absolute Auto 0.3 X10*3/uL (0.0-0.4); Eosinophils Percent Auto 4.5 % (0-4); Hematocrit 28.4 % (37.0-47.0); Hemoglobin 8.7 g/dl (12.0-16.0); Imm Gran Abs Auto 0.02 X10*3/uL (0.00-0.03); Imm Gran Pct Auto 0.3 % (0.0-0.4); Lymphocytes Absolute Auto 1.2 X10*3/uL (1.2-4.9); Lymphocytes Percent Auto 19.1 % (20-40); Mean Corpuscular HGB Conc 30.6 g/dl (31.0-35.0); Mean Corpuscular Hemoglobin 24.3 pg (27.0-33.0); Mean Corpuscular Volume 79.3 fL (80.0-98.0); Monocytes Absolute Auto 0.5 X10*3/uL (0.1-1.2); Monocytes Percent Auto 8.6 % (2-11); Neutrophils Percent Auto 66.5 % (45-73); Platelet Count 287 X10*3/uL (160-400); Red Blood Count 3.58 X10*6/uL (4.20-5.50); Red Cell Distribution Width 17.8 % (11.0-16.0)
[2023-05-05 12:48] LABS: Glucose Fasting 113 mg/dL (60-99); Iron 15 mcg/dL (30-160); Percent Iron Saturation 4 % (15-50); Total Iron Binding Capacity 350 mcg/dL (228-428); Unsaturated Iron Binding 335 ug/dL
== END 2023-05-05 10:26 | disposition home or self-care (01) ==
LOC: HO.CT 10:25
PROVIDERS: PCP Internal Medicine; Visit Provider Nurse Practitioner Family
DX: R91.1 Solitary pulmonary nodule (principal); E61.1 Iron deficiency; D64.9 Anemia, unspecified; R73.9 Hyperglycemia, unspecified
CPT/HCPCS: 36415; 71250; 82947; 83540; 85025

== ENCOUNTER 2023-05-22 09:31 | Outpatient (AMB) | payer MEDICARE, OTHER, SELFPAY ==
[2023-05-22 09:40] VITALS: BP 124/62; PULSE 99; O2SAT 100; BMI 33.8
--- NOTE | 2023-05-22 09:40 | A.OFFPC_ITS ---
Vital Signs 05/22/23 09:40 Height 5 ft 3 in Weight 191 lb BMI 33.8 BP 124/62 Blood Pressure Location Lt brachial Position Sitting Pulse 99 Pulse Source Pulse Oximeter Pulse Oximetry (%) 100 Oxygen Delivery Method Room Air Intake Visit Reasons: f/u lab results Child Protection Specialist Required: No Metal Furniture Assembly Supervisor: Not Required per policy Accompanied by: Self / Same As Patient Allergies SEASONAL ALLERGIES Allergy (Unknown, Uncoded 05/22/23 09:40) SNEEZING,ITCHY NOSE Medication List - Last Reconciled 05/22/23 by Donovan Medrano MD albuterol sulfate 90 mcg/actuation 2 puffs inhalation Q4-6H PRN 30 days aspirin (Adult Aspirin Regimen) 81 mg PO DAILY atorvastatin 80 mg PO DAILY fluoxetine 40 mg (2 x 20 mg) PO DAILY fluticasone propion-salmeterol 500-50 mcg/dose (Wixela Inhub) 1 inh inhalation BID 30 days lisinopril 10 mg PO DAILY metformin 500 mg PO BID nicotine 1 patch transdermal Q24H 28 days omeprazole 20 mg PO DAILY tramadol 50 mg PO Q6H PRN Tobacco use date assessed: 04/29/23 Fall risk assessment: No Falls in past year Last assessed Fall Risk: 05/22/23 Dental Screening Dental Screen Date: 05/22/23 Did you have a dental visit in the last 12 months?: Yes Did you have a dental problem in the last 6 months where you did not have access to dental care?: No Was dental information given to patient?: Patient has dentist HPI f/u lab results HPI Details anemic and iron def; epigastric discomfort; has appt with gi for routine colonoscopy in August, but will push this up to urgernt; abd distended [facility] Medical History (Updated 05/22/23 @ 09:57 by Donovan Medrano MD) COPD (chronic obstructive pulmonary disease) Smoker Hyperlipidemia Obesity Type 2 diabetes mellitus with obesity Diabetes mellitus Surgical History History of section History of hysterectomy Family History Father No problems noted. Mother No problems noted. Social History Housing: House Alcohol intake: current Alcohol intake frequency: a few times a week Patient Tobacco Use Status: Current everyday Tobacco user Tobacco use type: Cigarette Cigarette Packs Per Day: 1 Cigarettes Per Day: 20 e-Cigarette/Vaping Use: Never Used Second Hand Smoke Exposure: Yes service: No Current occupational status: retired Cognitive needs: No Hearing needs: No Vision needs: Yes (glasses) Questionnaire Thrive Questionnaire Date Thrive assessed: 04/29/23 KAYLIE-7 AMB Questionnaire KAYLIE-7 Date KAYLIE - 7 assessed: 04/29/23 Source: Developed by Drs. Levon Rodriguez, Magdalene Morrison, Ranjan Marcano and colleagues, with an educational jigna from [employer]. Review of Systems Const Denies chills, Denies headache(s) and Denies weight loss ENT Denies headache(s) Card Denies chest pain, Denies syncope, Denies irregular heart rhythm and Denies dyspnea Resp Denies chest congestion, Denies cough and Denies dyspnea GI Denies change in stool character, Denies nausea and Denies vomiting Musc Denies deformity and Denies joint swelling Neuro Denies syncope and Denies headache(s) Physical exam (Primary Care) Vital Signs: Last Vital Signs Pulse 99 05/22/23 09:40 BP 124/62 05/22/23 09:40 Pulse Ox 100 05/22/23 09:40 Oxygen Delivery Method Room Air 05/22/23 09:40 BMI result Body Mass Index 33.8 Tobacco/Smoking Status: Tobacco use Status Tobacco use date assessed 04/29/23 05/22/23 09:43 Patient Tobacco Use Status Current everyday Tobacco 05/22/23 09:43 Tobacco use type Cigarette 05/22/23 09:43 e-Cigarette/Vaping Use Never Used 05/22/23 09:43 Thrive Assessment: Date of Thrive Assessment Date Thrive assessed 04/29/23 05/22/23 09:43 Const General: cooperative, comfortable, no acute distress and alert Neck Neck: Yes no lymphadenopathy Thyroid: Thyroid normal Resp Effort & Inspection: normal respiratory effort Auscultation: clear to auscultation bilaterally Percussion: percussion normal Cardio Jugular venous distension: no JVD Palpation: normal PMI Rate: regular rate Rhythm: regular rhythm Heart sounds: S1 normal heart sound present and S2 normal heart sound present GI Other: abd distended Skin General skin exam: no rashes or lesions noted Extrem General: Yes no clubbing, cyanosis or edema Assessment and Plan Assessment & Plan (1) Iron deficiency anemia: Code(s): D50.9 - Iron deficiency anemia, unspecified Plan: begin iron (2) Abdominal distension: Code(s): R14.0 - Abdominal distension (gaseous) Plan: ct abd; push up gi ref Orders: Orders CT abdomen w IV con Today R10.9 - Unspecified abdominal pain Medications: New ferrous sulfate 325 mg PO BID 60 tabs 3RF Coding Level of Care Code Est Pt Level 4 (22321) Diagnoses Iron deficiency anemia D50.9 Abdominal distension R14.0
== END 2023-05-22 09:58 | disposition home or self-care (01) ==
PROVIDERS: PCP Internal Medicine; Visit Provider Internal Medicine
DX: D50.9 Iron deficiency anemia, unspecified (principal); R14.0 Abdominal distension (gaseous)
CPT/HCPCS: 99214

== ENCOUNTER 2023-05-27 09:37 | Outpatient (AMB) | payer MEDICARE, OTHER, SELFPAY ==
--- NOTE | 2023-05-27 09:48 | A.OFFVIS_ITS ---
Intake Vital Signs 05/27/23 09:49 Height 5 ft 3 in Weight 191 lb BMI 33.8 BP 120/62 Blood Pressure Location Lt brachial Position Sitting Pulse 83 Pulse Source Pulse Oximeter Pulse Oximetry (%) 98 Oxygen Delivery Method Room Air Intake Visit Reasons: Pulmonary Nodule Intake Note: pt is here for follow up and states she is feeling okay, little short with stairs and exertion, she is also asking for something else besides the nicotine patch, she doesn't get much help with this. 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 Allergies SEASONAL ALLERGIES Allergy (Unknown, Uncoded 05/27/23 09:48) SNEEZING,ITCHY NOSE Medication List - Last Reconciled 05/27/23 by Treva Powers MD albuterol sulfate 90 mcg/actuation 2 puffs inhalation Q4-6H PRN 30 days aspirin (Adult Aspirin Regimen) 81 mg PO DAILY atorvastatin 80 mg PO DAILY ferrous sulfate 325 mg PO BID fluoxetine 40 mg (2 x 20 mg) PO DAILY fluticasone propion-salmeterol 500-50 mcg/dose (Wixela Inhub) 1 inh inhalation BID 30 days lisinopril 10 mg PO DAILY metformin 500 mg PO BID nicotine 1 patch transdermal Q24H 28 days omeprazole 20 mg PO DAILY tramadol 50 mg PO Q6H PRN Do you need a note to return to daycare/school/sports/work: No HPI Pulmonary Nodule HPI Details 68 years old female, a hard core smoker, 1 pack a day, comes for follow-up for her COPD. She claims that breathing status is very stable. She has her usual intermittent cough and gets short of breath on walking up hill or climbing stairs. But she has no acute shortness of breath at rest. The problem is she continues to smoke 1 pack a day, in spite of using nicotine patch at 21 mg daily. Wants to try hip notice some and is looking into that. Her main complaint is large belly, and her PCP has not done any work up for that. [facility] Medical History COPD (chronic obstructive pulmonary disease) Smoker Hyperlipidemia Obesity Type 2 diabetes mellitus with obesity Diabetes mellitus Surgical History History of section History of hysterectomy Family History Father No problems noted. Mother No problems noted. Social History Housing: House Alcohol intake: current Alcohol intake frequency: a few times a week Patient Tobacco Use Status: Current everyday Tobacco user Tobacco use type: Cigarette Cigarette Packs Per Day: 1 Cigarettes Per Day: 20 e-Cigarette/Vaping Use: Never Used Second Hand Smoke Exposure: Yes service: No Current occupational status: retired Cognitive needs: No Hearing needs: No Vision needs: Yes (glasses) Review of Systems Const All systems reviewed & are unremarkable except as noted in HPI and below Eyes Reports no additional complaints ENT Reports nasal congestion (mild off and on .) Card Denies chest pain, Denies irregular heart rhythm and Denies leg edema Resp Reports as per HPI GI Reports heartburn (Treated with omeprazole) Reports no additional complaints Musc Reports back pain and Reports myalgias Skin/Breast Reports system reviewed and no additional complaints, except as documented Neuro Reports no additional complaints Psych Reports depression (Treated with med) Endo Reports other (Being treated for diabetes mellitus) Mando/Lymph Reports no additional complaints Aller/Immun Reports no additional complaints Physical Exam Vital Signs: Last Vital Signs Pulse 83 05/27/23 09:49 BP 120/62 05/27/23 09:49 Pulse Ox 98 05/27/23 09:49 Oxygen Delivery Method Room Air 05/27/23 09:49 BMI result Body Mass Index 33.8 Const General: comfortable, no acute distress, alert and awake Orientation/consciousness: patient oriented x3 HEENT Head: Yes normal to inspection General nose exam: No nasal polyps present, No nasal discharge present and Other nasal findings present (Mild nasal congestion) Face and sinus: Yes sinuses nontender Mouth: oropharynx normal Throat: Yes posterior oropharynx normal Eyes General: appearance normal, both eyes and all related structures Neck Neck: Yes normal visual inspection, Yes no lymphadenopathy, Yes trachea midline and Yes no JVD Thyroid: Thyroid normal Chest Chest palpation & inspection: normal inspection of the chest, normal palpation of entire chest wall and no tenderness Resp Other: Percussion note resonant, breath sounds are equal on both sides slightly distant with prolonged expiratory phase. No definite wheezes or crepitations are heard. Cardio Palpation: normal PMI Rate: regular rate Rhythm: regular rhythm Heart sounds: no gallops and no murmurs Peripheral pulses: Peripheral pulses 2+ throughout GI Palpation (GI): Soft to palpation, nontender, No hepatosplenomegaly present, no masses and Other GI palpation findings present (Abdomen is protuberant) Auscultation: normal bowel sounds Back/Spine/Pelvis Thoracic/Lumbar Spine: thoracic and lumbar spine normal to inspection Skin General skin exam: no rashes or lesions noted Neuro General: patient oriented x3 and no focal motor deficits Cranial nerves: Yes CN's II-XII intact bilaterally Extrem General: Yes normal to inspection, Yes no clubbing, cyanosis or edema and Yes no calf tenderness Psych Appearance: grossly normal and well kempt Speech and movement: Normal speech and movement present Results Reviewed Results Reviewed: 05/05/23 CT scan IMPRESSION: Improving branching densities in the right middle lobe most likely inflammatory in nature. Would recommend one additional follow-up in 6 months prior to returning to yearly surveillance. ASSESSMENT: Lung-RADS category 3: Probably Benign. RECOMMENDATION: Short interval 6 month follow up low dose CT chest. Assessment & Plan Assessment & Plan (1) Smoker: Comment: Active smoker, for about 49 years, 1 pack a day. Not responding to nicotine patch , still on 20 mg patch daily Code(s): F17.200 - Nicotine dependence, unspecified, uncomplicated Plan: Talked in detail, Discussed the risks of continued smoking. She wants to try Zyban. I will prescribe Wellbutrin XR 150 mg b.i.d. And she will also looking to going for hip notice some (2) COPD (chronic obstructive pulmonary disease): Comment: MODERATELY SEVERE OBSTRUCTIVE AIRWAY DISORDER, WITH POSITIVE RESPONSE TO BD. THERAPY , Fairly well controlled at this time . Code(s): J44.9 - Chronic obstructive pulmonary disease, unspecified Plan: Continue Wixela 500-51 inhalation b.i.d.. Use albuterol HFA 2 puffs Q 6 hours only p.r.n. (3) Pulmonary nodule: Comment: Patient is in annual lung screening program, . Has multiple small pulmonary nodules One particular nodule is in right mid lobe , Nodular opacity extending to the pleural surface, 1.5 cm in size. Repeat CT scan of the chest shows that this density has decreased in size, suggesting inflammatory etiology. Code(s): R91.1 - Solitary pulmonary nodule Plan: She would need a repeat CT scan at 6 months interval ( in October of this year) Medications: New bupropion HCl (Wellbutrin SR) 150 mg PO BID 60 tabs 3RF anxiety/ smoking 30 days Coding Level of Care Code Est Pt Level 3 (14355) Diagnoses Smoker F17.200 COPD (chronic obstructive pulmonary disease) J44.9 Pulmonary nodule R91.1
[2023-05-27 09:49] VITALS: BP 120/62; PULSE 83; O2SAT 98; BMI 33.8
== END 2023-05-27 10:11 | disposition home or self-care (01) ==
PROVIDERS: PCP Internal Medicine; Visit Provider Internal Medicine
DX: F17.200 Nicotine dependence, unspecified, uncomplicated (principal); J44.9 Chronic obstructive pulmonary disease, unspecified; R91.1 Solitary pulmonary nodule
CPT/HCPCS: 99213

== ENCOUNTER → 2023-05-27 09:37 | Outpatient (BNVA) | payer MEDICARE, OTHER, SELFPAY | PROVIDERS: PCP Internal Medicine; Visit Provider Internal Medicine | DX: J44.9 Chronic obstructive pulmonary disease, unspecified (principal); R91.1 Solitary pulmonary nodule; F17.210 Nicotine dependence, cigarettes, uncomplicated | CPT/HCPCS: 99212 ==

== ENCOUNTER 2023-07-16 09:43 | Outpatient (REF) | payer MEDICARE, OTHER, SELFPAY ==
[2023-07-16 11:10] LABS: Anion Gap 13 (12-20); Blood Urea Nitrogen 6 mg/dL (9-16); Calcium 9.2 mg/dL (8.4-10.2); Carbon Dioxide 27 mmol/L (22-29); Chloride 101 mmol/L (96-108); Estimated Glomerular Filt Rate > 60; Glucose Random 104 mg/dL (60-115); Sodium 137 mmol/L (135-145)
== END 2023-07-16 09:44 | disposition home or self-care (01) ==
LOC: HO.LAB 09:43
PROVIDERS: PCP Internal Medicine; Visit Provider Internal Medicine
DX: I10 Essential (primary) hypertension (principal)
CPT/HCPCS: 36415; 80048

== ENCOUNTER 2023-07-18 09:15 | Outpatient (AMB) | payer MEDICARE, OTHER, SELFPAY ==
--- NOTE | 2023-07-18 09:17 | MHC.PC.OV ---
Vital Signs 07/18/23 09:18 Height 5 ft 3 in Weight 188 lb BMI 33.3 BP 142/70 H Blood Pressure Location Lt brachial Position Sitting Pulse 80 Pulse Source Pulse Oximeter Pulse Oximetry (%) 98 Oxygen Delivery Method Room Air Intake Visit Reasons: 3 month follow up, reschedule Allergies SEASONAL ALLERGIES Allergy (Unknown, Uncoded 05/27/23 09:48) SNEEZING,ITCHY NOSE Tobacco use date assessed: 04/29/23 Fall risk assessment: No Falls in past year Last assessed Fall Risk: 07/18/23 Dental Screening Dental Screen Date: 05/22/23 HPI 3 month follow up, reschedule HPI Details hyperlipidemia on rx; compliant with regimen [facility] Medical History COPD (chronic obstructive pulmonary disease) Smoker Hyperlipidemia Obesity Type 2 diabetes mellitus with obesity Diabetes mellitus Surgical History History of section History of hysterectomy Family History Father No problems noted. Mother No problems noted. Social History Housing: House Alcohol intake: current Alcohol intake frequency: a few times a week Patient Tobacco Use Status: Current everyday Tobacco user Tobacco use type: Cigarette Cigarette Packs Per Day: 1 Cigarettes Per Day: 20 e-Cigarette/Vaping Use: Never Used Second Hand Smoke Exposure: Yes service: No Current occupational status: retired Cognitive needs: No Hearing needs: No Vision needs: Yes (glasses) Questionnaire Thrive Questionnaire Date Thrive assessed: 04/29/23 KAYLIE-7 AMB Questionnaire KAYLIE-7 Date KAYLIE - 7 assessed: 04/29/23 Source: Developed by Drs. Levon Rodriguez, Magdalene Morrison, Ranjan Marcano and colleagues, with an educational jigna from [employer]. Review of Systems Const Denies chills, Denies headache(s) and Denies weight loss ENT Denies headache(s) Card Denies chest pain, Denies syncope, Denies irregular heart rhythm and Denies dyspnea Resp Denies chest congestion, Denies cough and Denies dyspnea GI Denies abdominal pain, Denies change in stool character, Denies nausea and Denies vomiting Musc Denies deformity and Denies joint swelling Neuro Denies syncope and Denies headache(s) Physical exam (Primary Care) Vital Signs: Last Vital Signs Pulse 80 07/18/23 09:18 BP 142/70 H 07/18/23 09:18 Pulse Ox 98 07/18/23 09:18 Oxygen Delivery Method Room Air 07/18/23 09:18 BMI result Body Mass Index 33.3 Tobacco/Smoking Status: Tobacco use Status Tobacco use date assessed 04/29/23 07/18/23 09:20 Patient Tobacco Use Status Current everyday Tobacco 07/18/23 09:20 Tobacco use type Cigarette 07/18/23 09:20 e-Cigarette/Vaping Use Never Used 07/18/23 09:20 Thrive Assessment: Date of Thrive Assessment Date Thrive assessed 04/29/23 07/18/23 09:20 Const General: cooperative, comfortable, no acute distress and alert Neck Neck: Yes no lymphadenopathy Thyroid: Thyroid normal Resp Effort & Inspection: normal respiratory effort Auscultation: clear to auscultation bilaterally Percussion: percussion normal Cardio Jugular venous distension: no JVD Palpation: normal PMI Rate: regular rate Rhythm: regular rhythm Heart sounds: S1 normal heart sound present and S2 normal heart sound present GI Inspection: Yes normal to inspection Palpation (GI): No hepatosplenomegaly present Skin General skin exam: no rashes or lesions noted Extrem General: Yes no clubbing, cyanosis or edema Assessment and Plan Assessment & Plan (1) Hyperlipidemia: Code(s): E78.5 - Hyperlipidemia, unspecified Plan: stable; same rx Orders: Orders Basic Metabolic Panel Today R14.0 - Abdominal distension (gaseous) Coding Level of Care Code Est Pt Level 3 (31692) Diagnoses Hyperlipidemia E78.5
[2023-07-18 09:18] VITALS: BP 142/70; PULSE 80; O2SAT 98; BMI 33.3
== END 2023-07-18 09:44 | disposition home or self-care (01) ==
PROVIDERS: PCP Internal Medicine; Visit Provider Internal Medicine
DX: E78.5 Hyperlipidemia, unspecified (principal)
CPT/HCPCS: 99213

== ENCOUNTER 2023-09-05 10:52 | Outpatient (REF) | payer MEDICARE, OTHER, SELFPAY ==
[2023-09-05 12:33] LABS: Anion Gap 12 (12-20); Blood Urea Nitrogen 7 mg/dL (9-16); Calcium 9.6 mg/dL (8.4-10.2); Carbon Dioxide 27 mmol/L (22-29); Chloride 100 mmol/L (96-108); Estimated Glomerular Filt Rate > 60; Glucose Random 148 mg/dL (60-115); Potassium 4.2 mmol/L (3.3-5.1); Sodium 135 mmol/L (135-145)
== END 2023-09-05 10:53 | disposition home or self-care (01) ==
LOC: HO.LAB 10:52
PROVIDERS: PCP Internal Medicine; Visit Provider Internal Medicine
DX: R14.0 Abdominal distension (gaseous) (principal)
CPT/HCPCS: 36415; 80048

== ENCOUNTER 2023-09-08 11:08 | Outpatient (REF) | payer MEDICARE, OTHER, SELFPAY ==
--- NOTE | ~2023-09-08 | CT_ITS ---
EXAMINATION: CT ABDOMEN AND PELVIS WITH CONTRAST CLINICAL INFORMATION: Anemia. Also, patient complains of a distended abdomen. COMPARISON: None available. TECHNIQUE: Multidetector volumetric images were obtained from the superior aspect of the liver through the pubic symphysis following administration 85 mL of Omnipaque 350 intravenous contrast. Oral contrast was given. Sagittal and coronal reformatted images were obtained on the technologist's workstation. This CT examination was performed using dose optimization techniques as appropriate, variously including the following: *Automated exposure control *Adjustment of mA and/or kV according to patient size (this includes techniques or standardized protocols for targeted exams where dose is matched to indication/reason for exam; i.e. extremities or head) *Use of iterative reconstruction technique DLP: 543 mGy-cm FINDINGS: LUNG BASES: No pulmonary consolidation or pleural effusion. HEPATOBILIARY: Liver has normal size and contour. Multiple cysts are present within the liver. Also, there are innumerable hypodense foci that are too small for definitive characterization but probably represent either cysts or biliary hamartomas. Gallbladder has a normal appearance. No dilated bile ducts. PANCREAS: No edema, pancreatic ductal dilatation or mass. SPLEEN: Normal. ADRENAL GLANDS: Normal. KIDNEYS AND URETERS: Kidneys have normal size and cortical thickness. No renal mass, perinephric edema, urolithiasis or hydroureteronephrosis. BLADDER: Normal. BOWEL AND PERITONEUM: No dilated bowel loops. Loops of bowel are displaced by a large mass arising out of the pelvis. No focal bowel wall thickening, mesenteric fat stranding or pneumoperitoneum. ABDOMINAL WALL: No abdominal wall mass or hernia. VASCULATURE: There is atherosclerotic calcification of the abdominal aorta and iliac arteries without aneurysm. LYMPH NODES: No pathologic sized lymph nodes in the abdomen or pelvis. No inguinal lymphadenopathy. PELVIC VISCERA: Status post hysterectomy. A large smoothly marginated mass arising out of the pelvis is 40 Hounsfield unit attenuation. 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 This lesion could be further characterized on a pelvis and lower abdomen MRI performed without and with IV contrast. There might be solid tissue elements along the wall of a mucinous cyst in which the high density fluid is nearly isodense to and obscuring any soft tissue component on this CT exam. A trace amount of simple free fluid is present within the the posterior cul-de-sac. MUSCULOSKELETAL: No acute abnormalities within the visualized degenerated spine. No aggressive osseous lesion. CT/CT abdomen pelvis w IV con IMPRESSION: * Large mass arising out of the pelvis and extending into the upper abdomen is 24.3 cm maximum dimension. 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 A trace amount of simple free fluid is present in the posterior cul-de-sac. * Loops of bowel are displaced around the mass. There are no acute abnormalities along the gastrointestinal tract. * Multiple hepatic cysts are present. Also, there are innumerable small hypodense foci in the liver that could represent cysts or biliary hamartomas.
[2023-09-08] MEDS: iohexoL 350 MG/ML 100 ML INFUS..BTL IV (14:07)
[2023-09-08] MEDS: Barium Sulfate Oral (Mocha) 450 ML ORAL.SUSP 900 ML PO (14:07)
== END 2023-09-08 11:09 | disposition home or self-care (01) ==
LOC: HO.CT 11:08
PROVIDERS: PCP Internal Medicine; Visit Provider Internal Medicine
DX: D64.9 Anemia, unspecified (principal)
CPT/HCPCS: 74177; Q9967

== ENCOUNTER 2023-09-17 08:50 | Outpatient (AMB) | payer MEDICARE, OTHER, SELFPAY ==
[2023-09-17 08:53] VITALS: BP 138/80; PULSE 80; O2SAT 98; BMI 32.4
--- NOTE | 2023-09-17 08:53 | MHC.PC.OV ---
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 Automobile Travel Club Counselor: Not Required per policy Accompanied by: Self / Same As Patient Allergies SEASONAL ALLERGIES Allergy (Unknown, Uncoded 09/17/23 08:54) SNEEZING,ITCHY NOSE Medication List - Last Reconciled 09/17/23 by Donovan Medrano MD albuterol sulfate 90 mcg/actuation 2 puffs inhalation Q4-6H PRN 30 days aspirin (Adult Aspirin Regimen) 81 mg PO DAILY atorvastatin 80 mg PO DAILY bupropion HCl SR (Wellbutrin SR) 150 mg PO BID 30 days ferrous sulfate 325 mg PO BID fluoxetine 40 mg (2 x 20 mg) PO DAILY fluticasone propion-salmeterol 500-50 mcg/dose (Wixela Inhub) 1 inh inhalation BID 30 days lisinopril 10 mg PO DAILY metformin 500 mg PO BID nicotine 1 patch transdermal Q24H 28 days omeprazole 20 mg PO DAILY tramadol 50 mg PO Q6H PRN Tobacco use date assessed: 04/29/23 Fall risk assessment: No Falls in past year Last assessed Fall Risk: 09/17/23 Dental Screening Dental Screen Date: 05/22/23 HPI 09/22/23 HPI Details has surgery for a pelvic mass scheduled next week; has diabetes, hyperlipidemia, hypertension in good control; COPD and still smokes; has breast cancer which is being evaluated and a lung nodule also being evaluated; no history of CAD [facility] Medical History (Updated 09/17/23 @ 09:48 by Donovan Medrano MD) Hypertension Hyperlipidemia Type 2 diabetes mellitus with obesity COPD (chronic obstructive pulmonary disease) Nicotine dependence, cigarettes, uncomplicated Iron deficiency anemia Urinary incontinence Overactive bladder Obesity Surgical History History of section History of hysterectomy Family History Father No problems noted. Mother No problems noted. Social History Housing: House Alcohol intake: current Alcohol intake frequency: a few times a week Patient Tobacco Use Status: Current everyday Tobacco user Tobacco use type: Cigarette Cigarette Packs Per Day: 1 Cigarettes Per Day: 20 e-Cigarette/Vaping Use: Never Used Second Hand Smoke Exposure: Yes service: No Current occupational status: retired Cognitive needs: No Hearing needs: No Vision needs: Yes (glasses) Questionnaire Thrive Questionnaire Date Thrive assessed: 04/29/23 KAYLIE-7 AMB Questionnaire KAYLIE-7 Date KAYLIE - 7 assessed: 04/29/23 Source: Developed by Drs. Levon Rodriguez, Magdalene Morrison, Ranjan Marcano and colleagues, with an educational jigna from [employer]. Review of Systems Const Denies chills, Denies fatigue, Denies headache(s) and Denies weight loss Eyes Denies change in vision, Denies diplopia and Denies eye pain ENT Denies vertigo, Denies dizziness, Denies headache(s) and Denies nasal discharge Card Denies chest pain, Denies rapid heart rate and Denies dyspnea on exertion Resp Denies chest congestion, Denies cough, Denies pain with cough and Denies dyspnea on exertion GI Denies abdominal pain, Denies hematochezia and Denies change in bowel habits Musc Denies myalgias, Denies arthralgias and Denies joint swelling Skin/Breast Denies lesions and Denies unusual bruising Neuro Denies vertigo, Denies dizziness, Denies headache(s) and Denies focal weakness Endo Denies fatigue Physical exam (Primary Care) Vital Signs: Last Vital Signs Pulse 80 09/17/23 08:53 BP 138/80 09/17/23 08:53 Pulse Ox 98 09/17/23 08:53 Oxygen Delivery Method Room Air 09/17/23 08:53 BMI result Body Mass Index 32.4 Tobacco/Smoking Status: Tobacco use Status Tobacco use date assessed 04/29/23 09/17/23 08:54 Patient Tobacco Use Status Current everyday Tobacco 09/17/23 08:54 Tobacco use type Cigarette 09/17/23 08:54 e-Cigarette/Vaping Use Never Used 09/17/23 08:54 Thrive Assessment: Date of Thrive Assessment Date Thrive assessed 04/29/23 09/17/23 08:54 Const General: cooperative, healthy appearing and no acute distress Orientation/consciousness: oriented to person, oriented to place and oriented to time HENMT Head: Yes normal to inspection, Yes normocephalic and Yes atraumatic Mouth: Normal oral and palatal mucosa present and tongue normal Throat: Yes posterior oropharynx normal and Yes uvula midline Eyes General: appearance normal, both eyes and all related structures Neck Neck: Yes normal visual inspection, Yes full ROM and Yes no lymphadenopathy Thyroid: Thyroid normal Carotids: normal carotid upstroke Chest Chest palpation & inspection: normal inspection of the chest Resp Effort & Inspection: normal respiratory effort and able to speak in complete sentences Auscultation: clear to auscultation bilaterally Cardio Jugular venous distension: no JVD Palpation: normal PMI Rate: regular rate Rhythm: regular rhythm Heart sounds: S1 normal heart sound present and S2 normal heart sound present GI Inspection: Yes normal to inspection Palpation (GI): Soft to palpation and No hepatosplenomegaly present Auscultation: normal bowel sounds General: Yes no CVA tenderness Back/Spine/Pelvis Back: no CVA tenderness Skin General skin exam: no rashes or lesions noted Neuro General: oriented to person, oriented to place and oriented to time Extrem General: Yes normal to inspection and Yes full ROM Results AMB Hemoglobin A1c AMB Hemoglobin A1c 6.6 % Last Edit by DARIUS Saravia on 09/17/23 09:07 Results Reviewed Results Reviewed: Laboratory Last Values Hgb A1c (Clinic) 6.6 % (4.0-6.0) H 09/17/23 08:56 Assessment and Plan Assessment & Plan (1) Type 2 diabetes mellitus with obesity: Code(s): E11.69 - Type 2 diabetes mellitus with other specified complication; E66.9 - Obesity, unspecified Plan: stable; same rx (2) Pre-op evaluation: Code(s): Z01.818 - Encounter for other preprocedural examination Plan: intermediate risk for cardiovascular complications; cleared for surgery (3) Hypertension: Code(s): I10 - Essential (primary) hypertension Plan: stable; same rx (4) Hyperlipidemia: Code(s): E78.5 - Hyperlipidemia, unspecified Plan: stable; same rx (5) COPD (chronic obstructive pulmonary disease): Code(s): J44.9 - Chronic obstructive pulmonary disease, unspecified Plan: advised to decrease smoking preop (6) Pulmonary nodule: Code(s): R91.1 - Solitary pulmonary nodule Plan: stable; per pulmonology Orders: Orders AMB Hemoglobin A1c Today E11.69 - Type 2 diabetes mellitus with other specified complication, E66.9 - Obesity, unspecified Coding Level of Care Code Est Pt Level 5 (18011) Diagnoses Type 2 diabetes mellitus with obesity E11.69; E66.9 Pre-op evaluation Z01.818 Hypertension I10 Hyperlipidemia E78.5 COPD (chronic obstructive pulmonary disease) J44.9 Pulmonary nodule R91.1
== END 2023-09-17 09:23 | disposition home or self-care (01) ==
PROVIDERS: PCP Internal Medicine; Visit Provider Internal Medicine
DX: E11.69 Type 2 diabetes mellitus with other specified complication (principal); J44.9 Chronic obstructive pulmonary disease, unspecified; Z68.32 Body mass index [BMI] 32.0-32.9, adult; Z01.818 Encounter for other preprocedural examination; E66.9 Obesity, unspecified; I10 Essential (primary) hypertension; E78.5 Hyperlipidemia, unspecified; R91.1 Solitary pulmonary nodule
CPT/HCPCS: 83036; 99214

== ENCOUNTER 2023-10-24 10:21 | Outpatient (AMB) | payer MEDICARE, OTHER, SELFPAY ==
--- NOTE | 2023-10-24 10:25 | A.OFFPC_ITS ---
Vital Signs 10/24/23 10:26 Height 5 ft 3 in Weight 172 lb BMI 30.5 BP 134/68 Blood Pressure Location Lt brachial Position Sitting Pulse 81 Pulse Source Pulse Oximeter Pulse Oximetry (%) 96 Oxygen Delivery Method Room Air Intake Visit Reasons: 3MoFollowUp Intake Note: Patient is here to follow up on DM, HTN, HLD, COPD. Director Of Accounting Required: No Director Occupational: Not Required per policy Accompanied by: Self / Same As Patient Allergies SEASONAL ALLERGIES Allergy (Unknown, Uncoded 10/24/23 10:26) SNEEZING,ITCHY NOSE Medication List - Last Reconciled 10/28/23 by Donovan Medrano MD albuterol sulfate 90 mcg/actuation 2 puffs inhalation Q4-6H PRN 30 days aspirin (Adult Aspirin Regimen) 81 mg PO DAILY atorvastatin 80 mg PO DAILY bupropion HCl SR (Wellbutrin SR) 150 mg PO BID 30 days ferrous sulfate 325 mg PO BID fluoxetine 40 mg (2 x 20 mg) PO DAILY fluticasone propion-salmeterol 500-50 mcg/dose (Wixela Inhub) 1 ea inhalation BID lisinopril 10 mg PO DAILY lorazepam 1 mg PO Q6-8H PRN metformin 500 mg PO BID nicotine 1 patch transdermal Q24H 28 days omeprazole 20 mg PO DAILY tramadol 50 mg PO Q6H PRN Tobacco use date assessed: 10/24/23 Fall risk assessment: No Falls in past year Last assessed Fall Risk: 10/24/23 Dental Screening Dental Screen Date: 05/22/23 HPI 3MoFollowUp HPI Details hyperlipidemia on rx; doing well and compliant [facility] Medical History (Updated 09/17/23 @ 09:48 by Donovan Medrano MD) Hypertension Hyperlipidemia Type 2 diabetes mellitus with obesity COPD (chronic obstructive pulmonary disease) Nicotine dependence, cigarettes, uncomplicated Iron deficiency anemia Urinary incontinence Overactive bladder Obesity Surgical History History of section History of hysterectomy Family History Father No problems noted. Mother No problems noted. Social History Housing: House Alcohol intake: current Alcohol intake frequency: a few times a week Patient Tobacco Use Status: Current everyday Tobacco user Tobacco use type: Cigarette Cigarette Packs Per Day: 1 Cigarettes Per Day: 10 e-Cigarette/Vaping Use: Never Used Second Hand Smoke Exposure: Yes service: No Current occupational status: retired Cognitive needs: No Hearing needs: No Vision needs: Yes (glasses) Questionnaire PHQ-9 Over the last 2 weeks, how often have you been bothered by any of the following problems? 1. Little interest or pleasure in doing things: not at all 2. Feeling down, depressed, or hopeless: not at all 3. Trouble falling or staying asleep, or sleeping too much: not at all 4. Feeling tired or having little energy: not at all 5. Poor appetite or overeating: not at all 6. Feeling bad about yourself - or that you are a failure or have let yourself or your family down: not at all 7. Trouble concentrating on things, such as reading the newspaper or watching television: not at all 8. Moving or speaking so slowly that other people could have noticed. Or the opposite - being so fidgety or restless that you have been moving around a lot more than usual: not at all 9. Thoughts that you would be better off or of hurting yourself in some way: not at all Total score: 0 Source: Developed by Drs. Levon Rodriguez, Magdalene Morrison, Ranjan Marcano and colleagues, with an educational jigna from [employer]. Thrive Questionnaire Date Thrive assessed: 04/29/23 AUDIT C Alcohol Use Questionnaire (AUDIT-C) 1. How often do you have a drink containing alcohol?: 4 or more times a week 2. How many drinks containing alcohol do you have on a typical day when you are drinking?: 5 or 6 3. How often do you have six or more drinks on one occasion?: Never Total Score: 6 KAYLIE-7 AMB Questionnaire KAYLIE-7 Date KAYLIE - 7 assessed: 04/29/23 Source: Developed by Drs. Levon Rodriguez, Magdalene Morrison, Ranjan Marcano and colleagues, with an educational jigna from [employer]. Review of Systems Const Denies chills, Denies headache(s) and Denies weight loss ENT Denies headache(s) Card Denies chest pain, Denies syncope, Denies irregular heart rhythm and Denies dyspnea Resp Denies chest congestion, Denies cough and Denies dyspnea GI Denies abdominal pain, Denies change in stool character, Denies nausea and Denies vomiting Musc Denies deformity and Denies joint swelling Neuro Denies syncope and Denies headache(s) Physical exam (Primary Care) Vital Signs: Last Vital Signs Pulse 81 10/24/23 10:26 BP 134/68 10/24/23 10:26 Pulse Ox 96 10/24/23 10:26 Oxygen Delivery Method Room Air 10/24/23 10:26 BMI result Body Mass Index 30.5 Tobacco/Smoking Status: Tobacco use Status Tobacco use date assessed 10/24/23 10/24/23 10:27 Patient Tobacco Use Status Current everyday Tobacco 10/24/23 10:27 Tobacco use type Cigarette 10/24/23 10:27 e-Cigarette/Vaping Use Never Used 10/24/23 10:27 PHQ-9: PHQ-9 Score PHQ-9: Total score 0 10/24/23 10:32 Thrive Assessment: Date of Thrive Assessment Date Thrive assessed 04/29/23 10/24/23 10:27 Const General: cooperative, comfortable, no acute distress and alert Neck Neck: Yes no lymphadenopathy Thyroid: Thyroid normal Resp Effort & Inspection: normal respiratory effort Auscultation: clear to auscultation bilaterally Percussion: percussion normal Cardio Jugular venous distension: no JVD Palpation: normal PMI Rate: regular rate Rhythm: regular rhythm Heart sounds: S1 normal heart sound present and S2 normal heart sound present GI Inspection: Yes normal to inspection Palpation (GI): No hepatosplenomegaly present Skin General skin exam: no rashes or lesions noted Extrem General: Yes no clubbing, cyanosis or edema Assessment and Plan Assessment & Plan (1) Hyperlipidemia: Code(s): E78.5 - Hyperlipidemia, unspecified Plan: stable; same rx Coding Level of Care Code Est Pt Level 3 (04212) Diagnoses Hyperlipidemia E78.5
[2023-10-24 10:26] VITALS: BP 134/68; PULSE 81; O2SAT 96; BMI 30.5
== END 2023-10-24 11:05 | disposition home or self-care (01) ==
PROVIDERS: PCP Internal Medicine; Visit Provider Internal Medicine
DX: E78.5 Hyperlipidemia, unspecified (principal)
CPT/HCPCS: 99213

== ENCOUNTER 2024-01-15 10:32 | Outpatient (AMB) | payer MEDICARE, OTHER, SELFPAY ==
[2024-01-15 10:33] VITALS: BP 116/82; PULSE 99; O2SAT 96; BMI 31.2
--- NOTE | 2024-01-15 10:33 | MHC.PC.OV ---
Vital Signs 01/15/24 10:33 Height 5 ft 3 in Weight 176 lb BMI 31.2 BP 116/82 Blood Pressure Location Lt brachial Position Sitting Pulse 99 Pulse Source Pulse Oximeter Pulse Oximetry (%) 96 Oxygen Delivery Method Room Air Intake Visit Reasons: 3 mo f/u Licensed Funeral Director And Embalmer Required: No Accompanied by: Self / Same As Patient Allergies SEASONAL ALLERGIES Allergy (Unknown, Uncoded 01/15/24 10:34) SNEEZING,ITCHY NOSE Medication List - Last Reconciled 01/15/24 by Donovan Medrano MD albuterol sulfate 90 mcg/actuation 2 puffs inhalation Q4-6H PRN 30 days aspirin (Adult Aspirin Regimen) 81 mg PO DAILY atorvastatin 80 mg PO DAILY bupropion HCl SR (Wellbutrin SR) 150 mg PO BID 30 days ferrous sulfate 325 mg PO BID fluoxetine 40 mg (2 x 20 mg) PO DAILY fluticasone propion-salmeterol 500-50 mcg/dose (Wixela Inhub) 1 ea inhalation BID lisinopril 10 mg PO DAILY lorazepam 1 mg PO Q6-8H PRN metformin 500 mg PO BID nicotine 1 patch transdermal Q24H 28 days omeprazole 20 mg PO DAILY tramadol 50 mg PO Q6H PRN Tobacco use date assessed: 01/15/24 Fall risk assessment: No Falls in past year Last assessed Fall Risk: 01/15/24 Dental Screening Dental Screen Date: 01/15/24 Did you have a dental visit in the last 12 months?: No Did you have a dental problem in the last 6 months where you did not have access to dental care?: No Was dental information given to patient?: No HPI 3 mo f/u HPI Details hyperlipidemia on rx; doing well; will be starting RT for breast cancer at the [facility] Medical History (Updated 09/17/23 @ 09:48 by Donovan Medrano MD) Hypertension Hyperlipidemia Type 2 diabetes mellitus with obesity COPD (chronic obstructive pulmonary disease) Nicotine dependence, cigarettes, uncomplicated Iron deficiency anemia Urinary incontinence Overactive bladder Obesity Surgical History History of section History of hysterectomy Family History Father No problems noted. Mother No problems noted. Social History Housing: House Alcohol intake: current Alcohol intake frequency: a few times a week Patient Tobacco Use Status: Current everyday Tobacco user Tobacco use type: Cigarette Cigarette Packs Per Day: 1 Cigarettes Per Day: 10 e-Cigarette/Vaping Use: Never Used Second Hand Smoke Exposure: Yes service: No Current occupational status: retired Cognitive needs: No Hearing needs: No Vision needs: Yes (glasses) Questionnaire PHQ-9 Over the last 2 weeks, how often have you been bothered by any of the following problems? 1. Little interest or pleasure in doing things: not at all 2. Feeling down, depressed, or hopeless: not at all 3. Trouble falling or staying asleep, or sleeping too much: not at all 4. Feeling tired or having little energy: not at all 5. Poor appetite or overeating: not at all 6. Feeling bad about yourself - or that you are a failure or have let yourself or your family down: not at all 7. Trouble concentrating on things, such as reading the newspaper or watching television: not at all 8. Moving or speaking so slowly that other people could have noticed. Or the opposite - being so fidgety or restless that you have been moving around a lot more than usual: not at all 9. Thoughts that you would be better off or of hurting yourself in some way: not at all Total score: 0 Source: Developed by Drs. Levon Rodriguez, Magdalene Morrison, Ranjan Marcano and colleagues, with an educational jigna from [employer]. Thrive Questionnaire Date Thrive assessed: 01/15/24 I am a: Patient What is your living situation today?: I have a steady place to live Within the past 12 months, did the food you bought not last and you didn't have the money to get more?: Never true Within the past 12 months, did you worry whether your food would run out before you got money to buy more?: Never true Do you have trouble paying for medicines?: No Do you have trouble getting transportation to medical appointments?: No Do you have trouble paying your heating and electricity bill?: No Do you have trouble taking care of your child, family member or friend?: No Do you have trouble with day-to-day activities such as bathing, preparing meals, shopping, managing finances, etc.?: No Are you currently unemployed and looking for a job?: No Are you interested in more education?: No Please select the resources that you would like help with: None Currently or been in a relationship where the following occur: No concerns reported THRIVE Score: 0 AUDIT C Alcohol Use Questionnaire (AUDIT-C) 1. How often do you have a drink containing alcohol?: 4 or more times a week 2. How many drinks containing alcohol do you have on a typical day when you are drinking?: 5 or 6 3. How often do you have six or more drinks on one occasion?: Never Total Score: 6 KAYLIE-7 AMB Questionnaire KAYLIE-7 Date KAYLIE - 7 assessed: 01/15/24 Feeling nervous, anxious, or on edge: 0 = Not at all Not being able to stop or control worryin = Not at all Worrying too much about different things: 0 = Not at all Trouble relaxin = Not at all Being so restless that it is hard to sit still: 0 = Not at all Becoming easily annoyed or irritable: 0 = Not at all Feeling afraid as if something awful might happen: 0 = Not at all Total KAYLIE-7 score (0-4 normal; 5-9 mild; 10-14 moderate; 15-21 severe): 0 Source: Developed by Drs. Levon Rodriguez, Magdalene Morrison, Ranjan Marcano and colleagues, with an educational jigna from [employer]. Review of Systems Const Denies chills, Denies headache(s) and Denies weight loss ENT Denies headache(s) Card Denies chest pain, Denies syncope, Denies irregular heart rhythm and Denies dyspnea Resp Denies chest congestion, Denies cough and Denies dyspnea GI Denies abdominal pain, Denies change in stool character, Denies nausea and Denies vomiting Musc Denies deformity and Denies joint swelling Neuro Denies syncope and Denies headache(s) Physical exam (Primary Care) Vital Signs: Last Vital Signs Pulse 99 01/15/24 10:33 BP 116/82 01/15/24 10:33 Pulse Ox 96 01/15/24 10:33 Oxygen Delivery Method Room Air 01/15/24 10:33 BMI result Body Mass Index 31.2 Tobacco/Smoking Status: Tobacco use Status Tobacco use date assessed 01/15/24 01/15/24 10:40 Patient Tobacco Use Status Current everyday Tobacco 01/15/24 10:40 Tobacco use type Cigarette 01/15/24 10:40 e-Cigarette/Vaping Use Never Used 01/15/24 10:40 PHQ-9: PHQ-9 Score PHQ-9: Total score 0 01/15/24 11:02 Thrive Assessment: Date of Thrive Assessment Date Thrive assessed 01/15/24 01/15/24 10:40 Currently or been in a relationship where the following occur: No concerns reported Const General: cooperative, comfortable, no acute distress and alert Neck Neck: Yes no lymphadenopathy Thyroid: Thyroid normal Resp Effort & Inspection: normal respiratory effort Auscultation: clear to auscultation bilaterally Percussion: percussion normal Cardio Jugular venous distension: no JVD Palpation: normal PMI Rate: regular rate Rhythm: regular rhythm Heart sounds: S1 normal heart sound present and S2 normal heart sound present GI Inspection: Yes normal to inspection Palpation (GI): No hepatosplenomegaly present Skin General skin exam: no rashes or lesions noted Extrem General: Yes no clubbing, cyanosis or edema Office Procedures Flu Questionnaire Does the patient have a severe egg allergy?: No Does the patient have severe life threatening allergies?: No Does the patient have a fever or illness today?: No Has the patient ever had Guillain-Lyons Syndrome?: No Has the patient ever had any past reaction to a flu shot?: No Immunizations Fluarix Triv [id number] (PF) 45 mcg (15 mcg x 3)/0.5 mL IM syringe Performing Provider: Donovan Medrano MD [facility] Administered by: Meghan Godinez CMA on 01/15/24 10:59 Dose Route Admin Location Dispensed Lot Number Expiration Date FORMERLY NAMED [facility] Sprayer Hand 0.5 mL IM Left Deltoid 0.5 mL [id number] 08/23/24 [id number] [employer] VIS Given Date VIS Provided VIS Publication Date 01/15/24 Single Vaccine 20 Eligibility Eligibility Date Funding Source Not [facility] Eligible 01/15/24 Private Coding Level of Care Code Est Pt Level 3 (86324) Diagnoses Hyperlipidemia E78.5 Assessment & Plan Assessment & Plan (1) Hyperlipidemia: Code(s): E78.5 - Hyperlipidemia, unspecified Category: Medical Plan: stable; same rx Orders: Orders Thyroid Stimulating Hormone Today Z13.29 - Encounter for screening for other suspected endocrine disorder Complete Blood Count Auto Diff Today Z13.0 - Encounter for screening for diseases of the blood and blood-forming organs and certain disorders involving the immune mechanism Hemoglobin A1c Today R73.9 - Hyperglycemia, unspecified Influenza [id number] Immunization Today Z23 - Encounter for immunization Lipid Panel Today Z13.220 - Encounter for screening for lipoid disorders Comprehensive [place]. Panel Fast Today Z13.9 - Encounter for screening, unspecified Influenza [id number] Immunization Today Z23 - Encounter for immunization Medications: New Fluarix Triv [id number] (PF) (flu vacc [id number] 6mos up(PF)) 0.5 mL IM ONCE 0.5 mL 0RF NS Z23 - Encounter for immunization
== END 2024-01-15 11:06 | disposition home or self-care (01) ==
PROVIDERS: PCP Internal Medicine; Visit Provider Internal Medicine
DX: Z23 Encounter for immunization (principal); E78.5 Hyperlipidemia, unspecified

== ENCOUNTER → 2024-01-15 10:32 | Outpatient (BNVA) | payer MEDICARE, OTHER, SELFPAY | PROVIDERS: PCP Internal Medicine; Visit Provider Internal Medicine | DX: Z23 Encounter for immunization (principal); E78.5 Hyperlipidemia, unspecified; R73.9 Hyperglycemia, unspecified | CPT/HCPCS: 90471; 90656; 96127; 99212 ==

== ENCOUNTER 2024-01-19 09:04 | Outpatient (REF) | payer MEDICARE, OTHER, SELFPAY ==
--- NOTE | ~2024-01-19 | CT_ITS ---
EXAMINATION: CT LOW-DOSE SCREENING CHEST WITHOUT CONTRAST CLINICAL INFORMATION: Solitary pulmonary nodule. The patient is a current smoker with a 50 pack-year history of smoking. Prior CT 05/05/2023: Previously seen gzxe-cm-lhe-type opacities in the right middle lobe appear improved and smaller but not resolved. This can be best seen comparing sagittal image 8:98 on the current study with 8:97 on the prior exam. COMPARISON: CT chest 05/05/2023. X-ray chest 10/24/2011. TECHNIQUE: Multidetector volumetric CT imaging of the chest is performed on a Siemens SOMATOM Definition scanner without contrast using low dose technique. Additional 2D coronal and sagittal reformatted images and axial 3D maximum intensity projection (MIP) images are generated on the CT workstation. This CT examination was performed using dose optimization techniques as appropriate, variously including the following: *Automated exposure control *Adjustment of mA and/or kV according to patient size (this includes techniques or standardized protocols for targeted exams where dose is matched to indication/reason for exam; i.e. extremities or head) *Use of iterative reconstruction technique TOTAL EXAM DLP: 50 mGy-cm. CTDIvol: 1.56 mGy. FINDINGS: PULMONARY NODULES: A small opacity in the right as ago esophageal recess is unchanged (5:288, compare prior 5:289). Some minimal residual tree-in-bud opacities in the right middle lobe are decreased (8:96, compare prior 8:92). No new, increasing-sized or suspicious pulmonary nodules seen. LUNGS: Lungs bilaterally symmetrically expanded. No effusion or pneumothorax. Central airways patent. MEDIASTINUM: No mediastinal, hilar or axillary adenopathy or free fluid collection. CORONARY ARTERY CALCIFICATION: Trace. THYROID GLAND: Unremarkable to the extent seen. CARDIOVASCULAR STRUCTURES: Aortic and heart size normal. No pericardial effusion. CHEST WALL/AXILLA: Unremarkable. UPPER ABDOMEN: Included portions of the solid organs in the upper abdomen unremarkable on noncontrast imaging. Benign simple hepatic cysts are again seen. Stable Bochdalek hernia containing only fat. OSSEOUS STRUCTURES: No suspicious focal findings. CT/CT lung screen follow up IMPRESSION: 1. No evidence of pulmonary malignancy. 2. Previously seen tree-in-bud opacities in the right middle lobe are improved. 3. Other incidental findings as described above. ASSESSMENT: 1. Lung-RADS Category 2: Benign appearance or behavior of nodules. N/A 2. Lung-RADS Category S: Negative. There are no clinically significant or potentially clinically significant findings not related to the lungs requiring urgent additional evaluation. RECOMMENDATION: Continued routine annual low-dose CT lung screening in 1 year is recommended. An order for CT CHEST LOW DOSE CANCER SCREENING ([id number]) can be placed. Electronically signed by: Ru Grewal MD 01/27/2024 12:44 PM [facility]
== END 2024-01-19 09:05 | disposition home or self-care (01) ==
LOC: HO.CT 09:04
PROVIDERS: PCP Internal Medicine; Visit Provider Physician Assistant Medical
DX: R91.1 Solitary pulmonary nodule (principal)
CPT/HCPCS: 71250

== ENCOUNTER 2024-01-26 10:13 | Outpatient (AMB) | payer MEDICARE, OTHER, SELFPAY ==
[2024-01-26 10:38] VITALS: BP 130/70; PULSE 96; O2SAT 96; BMI 31.2
--- NOTE | 2024-01-26 10:38 | A.OFFVIS_ITS ---
Vital Signs 01/26/24 10:38 Height 5 ft 3 in Weight 176 lb BMI 31.2 BP 130/70 Blood Pressure Location Lt brachial Position Sitting Pulse 96 Pulse Source Pulse Oximeter Pulse Oximetry (%) 96 Oxygen Delivery Method Room Air Intake Visit Reasons: pulmonary nodule Intake Note: pt is here for follow up and feels okay but having a lot of anxiety lately. Tafe Lecturer Required: No Allergies SEASONAL ALLERGIES Allergy (Unknown, Uncoded 01/26/24 10:47) SNEEZING,ITCHY NOSE Medication List - Last Reconciled 01/26/24 by Treva Powers MD albuterol sulfate 90 mcg/actuation 2 puffs inhalation Q4-6H PRN 30 days aspirin (Adult Aspirin Regimen) 81 mg PO DAILY atorvastatin 80 mg PO DAILY bupropion HCl SR (Wellbutrin SR) 150 mg PO BID 30 days ferrous sulfate 325 mg PO BID fluoxetine 40 mg (2 x 20 mg) PO DAILY fluticasone propion-salmeterol 500-50 mcg/dose (Wixela Inhub) 1 ea inhalation BID lisinopril 10 mg PO DAILY lorazepam 1 mg PO Q6-8H PRN metformin 500 mg PO BID nicotine 1 patch transdermal Q24H 28 days omeprazole 20 mg PO DAILY tramadol 50 mg PO Q6H PRN Do you need a note to return to daycare/school/sports/work: No HPI HPI pulmonary nodule: Details: THIS 68 YEARS OLD FEMALE IS HERE FOR FOLLOW-UP FOR HER COPD, SMOKING, PULMONARY NODULES. SINCE HER LAST VISIT SHE HAS UNDERGONE MAJOR SURGERY AND EXCISION OF A MASS IN THE UPPER ABDOMEN, SHE HAS ALSO BEEN DIAGNOSED TO HAVE RT. BREAST CANCER WITH LUMPECTOMY AND NOW GETTING RADIATION THERAPY. HER MAIN ISSUE IS ONGOING ANXIETY WHICH CAUSES HER TO SMOKE, AND SHE IS STILL SMOKING 1 PACK OF CIGARETTES A DAY. SHE DOES HAVE MILD INTERMITTENT, COUGH MOSTLY NONPRODUCTIVE AND SHE GETS SHORT OF BREATH ONLY WHEN SHE WALKS UP HILL OR CLIMBS STAIRS. THIS PART IS ACTUALLY BETTER SINCE SHE HAS HAD ABDOMINAL SURGERY. HER MAIN PROBLEM, IS ONGOING ANXIETY SHE IS ON PROZAC, SHE WAS PRESCRIBED ALBUTEROL BUT DID NOT USE IT. SHE ALSO APPLIES NICOTINE PATCH ONLY ONCE IN A WHILE. SHE WAS NOT ABLE TO MAKE AN APPOINTMENT WITH HYPNOTIST. SHE DOES WANT TO QUIT SMOKING AND NEEDS SOME HELP. HER BREATHING IS FAIRLY STABLE WITH THE USE OF WIXELA TWICE A DAY AND SHE DOES HAVE ALBUTEROL ON HAND BUT DOES NOT NEED TO USE IT MUCH. [facility] Medical History (Updated 01/26/24 @ 11:17 by Treva Powers MD) Hypertension Hyperlipidemia Type 2 diabetes mellitus with obesity COPD (chronic obstructive pulmonary disease) Nicotine dependence, cigarettes, uncomplicated Iron deficiency anemia Urinary incontinence Overactive bladder Obesity Surgical History History of section History of hysterectomy Family History Father No problems noted. Mother No problems noted. Social History Housing: House Alcohol intake: current Alcohol intake frequency: a few times a week Patient Tobacco Use Status: Current everyday Tobacco user Tobacco use type: Cigarette Cigarette Packs Per Day: 1 Cigarettes Per Day: 10 e-Cigarette/Vaping Use: Never Used Second Hand Smoke Exposure: Yes service: No Current occupational status: retired Cognitive needs: No Hearing needs: No Vision needs: Yes (glasses) Review of Systems Const All systems reviewed & are unremarkable except as noted in HPI and below Eyes Reports no additional complaints ENT Reports nasal congestion (mild off and on .) Card Denies chest pain, Denies irregular heart rhythm and Denies leg edema Resp Reports as per HPI GI Reports heartburn (Treated with omeprazole) Reports no additional complaints Musc Reports back pain and Reports myalgias Skin/Breast Reports system reviewed and no additional complaints, except as documented Neuro Reports no additional complaints Psych Reports depression (Treated with med) Endo Reports other (Being treated for diabetes mellitus) Mando/Lymph Reports no additional complaints Aller/Immun Reports no additional complaints Physical Exam Vital Signs: Last Vital Signs Pulse 96 01/26/24 10:38 BP 130/70 01/26/24 10:38 Pulse Ox 96 01/26/24 10:38 Oxygen Delivery Method Room Air 01/26/24 10:38 BMI result Body Mass Index 31.2 Const General: comfortable, no acute distress, alert and awake Orientation/consciousness: patient oriented x3 HEENT Head: Yes normal to inspection General nose exam: No nasal polyps present, No nasal discharge present and Other nasal findings present (Mild nasal congestion) Face and sinus: Yes sinuses nontender Mouth: oropharynx normal Throat: Yes posterior oropharynx normal Eyes General: appearance normal, both eyes and all related structures Neck Neck: Yes normal visual inspection, Yes no lymphadenopathy, Yes trachea midline and Yes no JVD Thyroid: Thyroid normal Chest Chest palpation & inspection: normal inspection of the chest, normal palpation of entire chest wall and no tenderness Resp Other: Percussion note resonant, breath sounds are equal on both sides slightly distant with prolonged expiratory phase. No definite wheezes or crepitations are heard. Cardio Palpation: normal PMI Rate: regular rate Rhythm: regular rhythm Heart sounds: no gallops and no murmurs Peripheral pulses: Peripheral pulses 2+ throughout GI Palpation (GI): Soft to palpation, nontender, No hepatosplenomegaly present, Palpable mass present and Other GI palpation findings present (MIDLINE ABDOMINAL SCAR, SEC . TO ABD, SURGERY AND RESECTION OF A MASS ) Auscultation: normal bowel sounds Back/Spine/Pelvis Thoracic/Lumbar Spine: thoracic and lumbar spine normal to inspection Skin General skin exam: no rashes or lesions noted Neuro General: patient oriented x3 and no focal motor deficits Cranial nerves: Yes CN's II-XII intact bilaterally Extrem General: Yes normal to inspection, Yes no clubbing, cyanosis or edema and Yes no calf tenderness Psych Appearance: grossly normal and well kempt Speech and movement: Normal speech and movement present Assessment & Plan Assessment & Plan (1) Smoker: Comment: Active smoker, for about 49 years, 1 pack a day. Not responding to nicotine patch , still on 21 mg patch daily. which she is not using regularly . Code(s): F17.200 - Nicotine dependence, unspecified, uncomplicated Category: Social Hx Plan: Had a good talk about her smoking encouraged her to start using the nicotine patch, Also advised that she should start cutting down the number of cigarettes smoked daily. I also encouraged her to use bupropion HCl 150 mg b.i.d. (2) COPD (chronic obstructive pulmonary disease): Comment: She does have moderate degree of COPD which is fairly stable with the use of current medications. She uses albuterol HFA as a rescue inhaler only once in a while. Overall her breathing status has improved after the resection of a large mass in the abdomen. Code(s): J44.9 - Chronic obstructive pulmonary disease, unspecified Category: Medical Plan: Continue Wixela 500-51 inhalation b.i.d.. Use albuterol HFA 2 puffs Q 6 hours p.r.n. (3) Nicotine dependence, cigarettes, uncomplicated: Comment: (current smoker, 49yrs, 1ppd - 40+PYH - on 20mg nicotine patch) Code(s): F17.210 - Nicotine dependence, cigarettes, uncomplicated Category: Medical Plan: Discussed in detail again advised to quit smoking . Continue having annual CT scan. Restart using nicotine patch 21 mg daily And may also use bupropion SR. 150 mg b.i.d. (4) Pulmonary nodule: Comment: Patient is being followed for small pulmonary nodules. She had a CT scan a few days. Ago which has not been officially read I have reviewed the image and there is no change, and no increase in the size of the nodules. But I will wait. For the official report Code(s): R91.1 - Solitary pulmonary nodule Category: Medical Plan: Continue in the annual screening program Medications: New nicotine 1 patch transdermal DAILY 28 ea 3RF Nicotine addiction 28 days Coding Level of Care Code Est Pt Level 3 (06887) Diagnoses Smoker F17.200 COPD (chronic obstructive pulmonary disease) J44.9 Nicotine dependence, cigarettes, uncomplicated F17.210 Pulmonary nodule R91.1
== END 2024-01-26 11:01 | disposition home or self-care (01) ==
PROVIDERS: PCP Internal Medicine; Visit Provider Internal Medicine
DX: F17.200 Nicotine dependence, unspecified, uncomplicated (principal); J44.9 Chronic obstructive pulmonary disease, unspecified; F17.210 Nicotine dependence, cigarettes, uncomplicated; R91.1 Solitary pulmonary nodule
CPT/HCPCS: 99213

== ENCOUNTER → 2024-01-26 10:13 | Outpatient (BNVA) | payer MEDICARE, OTHER, SELFPAY | PROVIDERS: PCP Internal Medicine; Visit Provider Internal Medicine | DX: J44.9 Chronic obstructive pulmonary disease, unspecified (principal); R91.1 Solitary pulmonary nodule; F17.210 Nicotine dependence, cigarettes, uncomplicated | CPT/HCPCS: 99212 ==

== ENCOUNTER 2024-04-27 10:00 | Outpatient (REF) | payer MEDICARE, OTHER, SELFPAY ==
[2024-04-27 11:09] LABS: MANUAL DIFF FLAG NO
[2024-04-27 11:54] LABS: Basophils Absolute Auto 0.1 X10*3/uL (0.0-0.2); Basophils Percent Auto 0.8 % (0-2); Eosinophils Absolute Auto 0.2 X10*3/uL (0.0-0.4); Eosinophils Percent Auto 4.1 % (0-4); Hematocrit 36.7 % (37.0-47.0); Hemoglobin 12.6 g/dl (12.0-16.0); Imm Gran Abs Auto 0.02 X10*3/uL (0.00-0.03); Imm Gran Pct Auto 0.3 % (0.0-0.4); Lymphocytes Absolute Auto 0.8 X10*3/uL (1.2-4.9); Lymphocytes Percent Auto 13.8 % (20-40); Mean Corpuscular HGB Conc 34.3 g/dl (31.0-35.0); Mean Corpuscular Hemoglobin 33.2 pg (27.0-33.0); Mean Corpuscular Volume 96.6 fL (80.0-98.0); Mean Platelet Volume 9.9 fL (9.4-12.3); Monocytes Absolute Auto 0.5 X10*3/uL (0.1-1.2); Monocytes Percent Auto 8.5 % (2-11); Neutrophils Absolute Auto 4.3 x10*3/uL (2.0-8.3); Neutrophils Percent Auto 72.5 % (45-73); Platelet Count 271 X10*3/uL (160-400); Red Cell Distribution Width 12.5 % (11.0-16.0); White Blood Count 5.9 X10*3/uL (4.8-10.8)
--- OUTSIDE RECORDS SUMMARY | 2024-04-27 11:57 | XMS_ITS | Patient Health Record ---
Author Organization [facility] Address [address] [place] [address] Care Team Providers Care Lie Detector Operator Name Role Phone Marcela KAUFMAN, Donovan Primary Care Provider Levon Milligan Unavailable [phone] ALLERGIES No Known Allergies RESULTS Component Value Reference Range Notes Complete Blood Count Auto Di ff (Not yet reviewed by provider) Interpretation: Performing Lab:[facility], [address] [place] [id number] Notes/Report: White Blood Count 5.9 4.8-10.8 X10*3/uL Red Blood Count 3.80 4.20-5.50 X10*6/uL Hemoglobin 12.6 12.0-16.0 g/dl Hematocrit 36.7 37.0-47.0 % Mean Corpuscular Volume 96.6 80.0-98.0 fL Mean Corpuscular Hemoglobin 33.2 27.0-33.0 pg Mean Corpuscular HGB Conc 34.3 31.0-35.0 g/dl Red Cell Distribution Width 12.5 11.0-16.0 % Platelet Count 271 160-400 X10*3/uL Mean Platelet Volume 9.9 9.4-12.3 fL Neutrophils Percent Auto 72.5 45-73 % Imm Gran Pct Auto 0.3 0.0-0.4 % Lymphocytes Percent Auto 13.8 20-40 % Monocytes Percent Auto 8.5 2-11 % Eosinophils Percent Auto 4.1 0-4 % Basophils Percent Auto 0.8 0-2 % NRBC Pct Auto 0.0 0.0-0.2 /100WBC Neutrophils Absolute Auto 4.3 2.0-8.3 x10*3/u L Imm Gran Abs Auto 0.02 0.00-0.03 X10*3/uL Lymphocytes Absolute Auto 0.8 1.2-4.9 X10*3/u L Monocytes Absolute Auto 0.5 0.1-1.2 X10*3/uL Eosinophils Absolute Auto 0.2 0.0-0.4 X10*3/u L Basophils Absolute Auto 0.1 0.0-0.2 X10*3/uL NRBC Abs Auto 0.000 0.0-0.012 X10*3/uL REASON FOR REFERRAL No Information MEDICATIONS Medication [...] screening (Z12.11) Active confirmed Colon cancer screening (196124386) Problem Iron deficiency anemia (D50.9) Active confirmed Iron deficiency anemia (05016858) Problem Abdominal distension (R14.0) Active confirmed Flatulence, eructation and gas pain (375228793) Problem History of colon polyps (Z86.0100) Active confirmed VITAL SIGNS Blood pressure diastolic 00 mm Hg 02/10/2024 Height 5 ft 3 in in 02/10/2024 Blood pressure systolic 00 mm Hg 02/10/2024 Weight 174 lbs 02/10/2024 BMI 30.82 kg/m2 02/10/2024 Encounters Encounter Location Date Provider Diagnosis [facility] [address] [place] [phone] 09/04/2023 Levon Garcia [facility] Out[facility] [address] [place] [id number] 10/13/2023 Levon Garcia [facility] [address] [place] [phone] 12/05/2023 Levon Garcia [facility] [address] [place] [phone] 09/04/2023 Levon Garcia Iron deficiency anemia D50.9 and Abdominal distension R14.0 [facility] [address] [address] 02/10/2024 Levon Garcia Iron deficiency anemia D50.9 ; History of colon polyps Z86.0100 and Colon cancer screening Z12.11 [facility] [address] [place] [phone] 08/14/2023 Levon Garcia [facility] [address] [place] [phone] 09/04/2023 Levon Garcia ASSESSMENTS Encounter Date Diagnosis [...] Name Order Date IRON + IBC (FE) 09/04/2023 IRON + IBC (FE) 02/10/2024 VITAMIN B12 AND FOLATE 09/04/2023 CBC w DIFF 02/10/2024 CBC w DIFF 09/04/2023 Complete Blood Count Auto Diff Ferritin 02/10/2024 Ferritin 09/04/2023 Vitamin B12 and Folate 02/10/2024 Future Test Test Name Order Date UPPER GI ENDOSCOPY 09/04/2023 COLONOSCOPY 09/04/2023 COLONOSCOPY 02/10/2024 Next Appt Details Provider Name:Levon Castellon Garcia , 05/24/2024 10:50:00 AM, [address] [place] [address] , [place], [place], [phone], Insurance Providers Payer Name Payer Address Payer Phone Subscriber Number Group Number Insured Name Patient Relationship to Insured Coverage Start Date Coverage End Date MEDICARE OF [place] [address] [place], [place] [id number] LETICIAJuly Self - patient is the insured [employer] ([employer]) [address] [place] [address] [phone] [id number] LETICIA , JUNE Self - patient is the insured MEDICAL (GENERAL) HISTORY Medical History History ICD Code 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 Alegre did the most recent exam sometime before 2019 Thinks she had an upper endo many years ago Denies NV,renal disease Bochdalek hiatal hernia seen on CT scan of the chest in April of 2023.... 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 Guzmán at [facility]-she had removal of the left ovary and left fallopian tube--there was no malignancy Breast biopsy on 09/03/2023 - -she describes the diagnosis of breast cancer with DCIS -she describes 2 subsequent surgeries later in 2023 and then followed by radiation treatments through January of 2024
--- OUTSIDE RECORDS SUMMARY | 2024-04-27 11:57 | XMS_ITS ---
Author Organization [facility] Address [address] [place] [address] Care Team Providers Care Boom Cat Operator Name Role Phone Donovan Medrano MD Primary Care Provider UnavailLevon Cooper Unavailable [phone] REASON FOR VISIT colon screening Encounters Encounter Location Date Provider Diagnosis [facility] [address] [place] [phone] 12/05/2023 Levon Garcia PLAN OF TREATMENT Next Appt Details Provider Name:Levon Garcia , 05/24/2024 10:50:00 AM, [address] [place] [address] , [place], [place], [phone],
--- OUTSIDE RECORDS SUMMARY | 2024-04-27 11:57 | XMS_ITS ---
Author Organization [facility] Address [address] [place] [address] Care Team Providers Care Economist Research Assistant Name Role Phone Donovan Medrano MD Primary Care Provider Levon Milligan Unavailable [phone] REASON FOR VISIT fe def anemia Encounters Encounter Location Date Provider Diagnosis [facility] [address] [place] [phone] 10/13/2023 Levon Garcia PLAN OF TREATMENT Next Appt Details Provider Name:Levon Garcia , 05/24/2024 10:50:00 AM, [address] [place] [address], [phone],
--- OUTSIDE RECORDS SUMMARY | 2024-04-27 11:58 | XMS_ITS ---
Author Organization [facility] Address [address] [place] [phone] Care Team Providers Care Digital Retoucher Name Role Phone Donovan Medrano MD Primary Care Provider Levon Milligan Unavailable [phone] ALLERGIES No Known Allergies REASON FOR VISIT [...] screening (Z12.11) Active confirmed Colon cancer screening (542034274) VITAL SIGNS Blood pressure systolic 00 mm Hg 02/10/20 24 Blood pressure diastolic 00 mm Hg 024 Height 5 ft 3 in in 02/10/2024 Weight 174 lbs 02/10/2024 BMI 30.82 kg/m2 02/10/2024 Encounters Encounter Location Date Provider Diagnosis [facility] [address] [facility] [address] [place] [address] 02/10/2024 Levon Garcia Iron deficiency anemia D50.9 [...] Provider Name:Levon Garcia , 05/24/2024 10:50:00 AM, [address] [place] [address] , [place], [place], [phone], Progress Notes * Examination Category Sub-Category Detail [...]
--- OUTSIDE RECORDS SUMMARY | 2024-04-27 11:58 | XMS_ITS | Patient Health Record ---
Author Organization [facility] Address [address] [place] [address] Care Team Providers Care Media Relations Coordinator Name Role Phone Donovan Medrano MD Primary Care Provider Unavaila tatum JiménezTova Unavailable [phone] Reason For Referral No Information Medications Medication [...] behavior of connective and other soft tissues (94078354) S.T. Mass (unspec.) (239.2) Active confirmed Problem Pain in limb (27934829) Pain in Limb (729.5) Active confirmed Problem Hallux valgus (895036065) Hallux Valgus (735.0) Active confirmed Problem Hammer toe (349082469) Hammer toe (735.4) Active confirmed Problem Metatarsalgia (68740356) Metatarsalgia (726.70) Active confirmed Problem Foot ulcer (52963385) Ulcer of Other Part of Foot (707.15) Active confirmed Problem Abscess /Cellulitis (682.7) Active confirmed Plan Of Treatment Pending Test Test Name Order Date [id number] Destruction, -10/15/2013 86131-Hspp Destruction, -11/26/2013 13481- Debride <25 sq cm 04/13/2013 65638- Debride <25 sq cm 05/18/2013 21446- Debride <25 sq cm 06/22/2013 43757- Debride <25 sq cm 07/22/2013 51069 I&D ABSCESS- SIMPLE,SINGLE 014 [id number] I&D ABSCESS- SIMPLE,SINGLE 014 68061 I&D ABSCESS- SIMPLE,SINGLE 014 70611 I&D ABSCESS- SIMPLE,SINGLE 014 54084, [id number]/INJECT, JOINT/BURSA 0 06/22/2013 Insurance Providers Payer Name Payer Address Payer Phone Subscriber Number Group Number Insured Name Patient Relationship to Insured Coverage Start Date Coverage End Date [facility] [address] [place] [address] [id number] July Self - patient is the insured Medical (General) History Medical History History ICD Code Headaches High blood pressure Back,Hip,and Knee pain Psoriasis/eczema Chicken pox Surgical History Surgery Date(Month/Year) hysterectomy section
[2024-04-27 12:33] LABS: Estimated Average Glucose 137 mg/dL; Hemoglobin A1C 150.4002 umol/L; Hemoglobin A1c % 6.4 % (<6.0); Total Hemoglobin (HGBA1C) 3217.0606 umol/L
[2024-04-27 12:39] LABS: Thyroid Stimulating Hormone 1.05 uIU/mL (0.32-4.0)
== END 2024-04-27 10:01 | disposition home or self-care (01) ==
LOC: HO.LAB 10:00
PROVIDERS: Absent Provider Internal Medicine; PCP Internal Medicine; Visit Provider Internal Medicine
DX: D50.9 Iron deficiency anemia, unspecified (principal); Z12.11 Encounter for screening for malignant neoplasm of colon; Z13.0 Encounter for screening for diseases of the blood and blood-forming organs and certain disorders involving the immune mechanism; R73.9 Hyperglycemia, unspecified; Z13.29 Encounter for screening for other suspected endocrine disorder; J44.9 Chronic obstructive pulmonary disease, unspecified; F17.210 Nicotine dependence, cigarettes, uncomplicated; E66.01 Morbid (severe) obesity due to excess calories
CPT/HCPCS: 36415; 83036; 84443; 85025; 99212

== ENCOUNTER 2024-04-27 10:06 | Outpatient (AMB) | payer MEDICARE, OTHER, SELFPAY ==
--- NOTE | 2024-04-27 10:16 | MHC.OFFVIS ---
Vital Signs 04/27/24 10:23 Height 5 ft 3 in Weight 174 lb 2.643 oz BMI 30.8 BP 110/60 Blood Pressure Location Lt brachial Position Sitting Pulse 90 Pulse Source Pulse Oximeter Pulse Oximetry (%) 98 Oxygen Delivery Method Room Air Intake Visit Reasons: Pulmonary Nodule Intake Note: pt is here for follow up and states only at times some short of breath Direct Care Supervisor Required: No Allergies SEASONAL ALLERGIES Allergy (Unknown, Uncoded 04/27/24 10:42) SNEEZING,ITCHY NOSE Medication List - Last Reconciled 04/27/24 by Treva Powers MD albuterol sulfate 90 mcg/actuation 2 puffs inhalation Q4-6H PRN 30 days aspirin (Adult Aspirin Regimen) 81 mg PO DAILY atorvastatin 80 mg PO DAILY bupropion HCl SR (Wellbutrin SR) 150 mg PO BID 30 days ferrous sulfate 325 mg PO BID fluoxetine 40 mg (2 x 20 mg) PO DAILY fluticasone propion-salmeterol 500-50 mcg/dose (Wixela Inhub) 1 ea inhalation BID lisinopril 10 mg PO DAILY lorazepam 1 mg PO Q6-8H PRN metformin 500 mg PO BID nicotine 1 patch transdermal Q24H 28 days nicotine 1 patch transdermal DAILY 28 days omeprazole 20 mg PO DAILY tramadol 50 mg PO Q6H PRN Do you need a note to return to daycare/school/sports/work: No HPI HPI Pulmonary Nodule: Details: Details: THIS 69 YEARS OLD FEMALE IS HERE FOR FOLLOW-UP FOR HER COPD, SMOKING, PULMONARY NODULES. LAST YEAR SHE HAS UNDERGONE MAJOR SURGERY AND EXCISION OF A MASS IN THE UPPER ABDOMEN, SHE WAS ALSO DIAGNOSED TO HAVE RT. BREAST CANCER WITH LUMPECTOMY AND HAS COMPLETED RADIATION THERAPY. SHE IS FEELING MUCH BETTER. AND AFTER EXCISION OF THE ABDOMINAL MASS HER BREATHING HAS BEEN MUCH EASIER. SHE HAD GONE BACK IN 4 TO SMOKING. TODAY SHE TELLS ME VERY HAPPILY THAT SHE QUIT 2 WEEKS AGO, AND DOES NOT HAVE ANY URGE TO SMOKE. SHE SEEMS TO BE DETERMINED TO STAY CLEAN. WANTS TO CUT DOWN ON THE STRENGTH OF HER NICOTINE PATCH. SHE IS STILL USING BUPROPION HCL 150 MG B.I.D. IN ADDITION TO FLUOXETINE 40 MG DAILY. SHE DOES HAVE MILD INTERMITTENT, COUGH MOSTLY NONPRODUCTIVE AND SHE GETS SHORT OF BREATH ONLY WHEN SHE WALKS UP HILL OR CLIMBS STAIRS. [facility] Medical History Hypertension Hyperlipidemia Type 2 diabetes mellitus with obesity COPD (chronic obstructive pulmonary disease) Nicotine dependence, cigarettes, uncomplicated Iron deficiency anemia Urinary incontinence Overactive bladder Obesity Surgical History History of section History of hysterectomy Family History Father No problems noted. Mother No problems noted. Social History Housing: House Alcohol intake: current Alcohol intake frequency: a few times a week Patient Tobacco Use Status: Former Tobacco user Tobacco use type: Cigarette Years Smoked: 50 e-Cigarette/Vaping Use: Never Used Second Hand Smoke Exposure: Yes service: No Current occupational status: retired Cognitive needs: No Hearing needs: No Vision needs: Yes (glasses) Review of Systems Const All systems reviewed & are unremarkable except as noted in HPI and below Eyes Reports no additional complaints ENT Reports nasal congestion (mild off and on .) Card Denies chest pain, Denies irregular heart rhythm and Denies leg edema Resp Reports as per HPI GI Reports heartburn (Treated with omeprazole) Reports no additional complaints Musc Reports back pain and Reports myalgias Skin/Breast Reports system reviewed and no additional complaints, except as documented Neuro Reports no additional complaints Psych Reports depression (Treated with med) Endo Reports other (Being treated for diabetes mellitus) Mando/Lymph Reports no additional complaints Aller/Immun Reports no additional complaints Physical Exam Const General: comfortable, no acute distress, alert and awake Orientation/consciousness: patient oriented x3 HEENT Head: Yes normal to inspection General nose exam: No nasal polyps present, No nasal discharge present and Other nasal findings present (Mild nasal congestion) Face and sinus: Yes sinuses nontender Mouth: oropharynx normal Throat: Yes posterior oropharynx normal Eyes General: appearance normal, both eyes and all related structures Neck Neck: Yes normal visual inspection, Yes no lymphadenopathy, Yes trachea midline and Yes no JVD Thyroid: Thyroid normal Chest Chest palpation & inspection: normal inspection of the chest, normal palpation of entire chest wall and no tenderness Resp Other: Percussion note resonant, breath sounds are equal on both sides slightly distant with prolonged expiratory phase. No definite wheezes or crepitations are heard. Cardio Palpation: normal PMI Rate: regular rate Rhythm: regular rhythm Heart sounds: no gallops and no murmurs Peripheral pulses: Peripheral pulses 2+ throughout GI Palpation (GI): Soft to palpation, nontender, No hepatosplenomegaly present, Palpable mass present and Other GI palpation findings present (MIDLINE ABDOMINAL SCAR, SEC . TO ABD, SURGERY AND RESECTION OF A MASS ) Auscultation: normal bowel sounds Back/Spine/Pelvis Thoracic/Lumbar Spine: thoracic and lumbar spine normal to inspection Skin General skin exam: no rashes or lesions noted Neuro General: patient oriented x3 and no focal motor deficits Cranial nerves: Yes CN's II-XII intact bilaterally Extrem General: Yes normal to inspection, Yes no clubbing, cyanosis or edema and Yes no calf tenderness Psych Appearance: grossly normal and well kempt Speech and movement: Normal speech and movement present Results Reviewed Results Reviewed: 01/19/2024 CT/CT lung screen follow up IMPRESSION: 1. No evidence of pulmonary malignancy. 2. Previously seen tree-in-bud opacities in the right middle lobe are improved. 3. Other incidental findings as described above. ASSESSMENT: 1. Lung-RADS Category 2: Benign appearance or behavior of nodules. N/A 2. Lung-RADS Category S: Negative. There are no clinically significant or potentially clinically significant findings not related to the lungs requiring urgent additional evaluation. Assessment & Plan Assessment & Plan (1) COPD (chronic obstructive pulmonary disease): Comment: She does have moderate degree of COPD which is fairly stable with the use of current medications. She uses albuterol HFA as a rescue inhaler only once in a while. Overall her breathing status has improved after the resection of a large mass in the abdomen. Code(s): J44.9 - Chronic obstructive pulmonary disease, unspecified Category: Medical Plan: CONTINUE TO USE WIXELA BUT DOES IS DOWN ADJUSTED TO 250-50 1 INHALATION B.I.D.. ALBUTEROL HFA 2 PUFFS Q 4-6 HOURS ONLY P.R.N. (2) Nicotine dependence, cigarettes, uncomplicated: Comment: (current smoker, 48yrs, 1ppd - 40+PYH - HAS PREVIOUSLY QUIT OFF AND ON BUT WENT BACK TO SMOKING. NOW FOR THE LAST 2 WEEKS HAS NOT SMOKED. Code(s): F17.210 - Nicotine dependence, cigarettes, uncomplicated Category: Medical Plan: COMMENDED FOR QUITTING SMOKING. AND STRESS THAT SHE HAS TO OVERCOME THE URGE TO SMOKE AGAIN. CONTINUE TO APPLY NICOTINE PATCH BUT DOES CAN BE REDUCED TO 14 MG A DAY. CONTINUE TO USE FLUOXETINE AND ALSO BUPROPION SR 150 MG B.I.D. (3) Pulmonary nodule: Comment: Patient is being followed for small pulmonary nodules. She had a CT scan in 2023 , which is stable and no significant nodules are seen. Code(s): R91.1 - Solitary pulmonary nodule Category: Medical Plan: Continue to have annual low-dose CT Medications: New fluticasone propion-salmeterol 250-50 mcg/dose (Wixela Inhub) 1 inh inhalation BID 30 days 60 ea 5RF copd nicotine 1 patch transdermal DAILY 28 days 28 ea 3RF quit smoking Coding Level of Care Code Est Pt Level 3 (94782) Diagnoses COPD (chronic obstructive pulmonary disease) J44.9 Nicotine dependence, cigarettes, uncomplicated F17.210 Pulmonary nodule R91.1
[2024-04-27 10:23] VITALS: BP 110/60; PULSE 90; O2SAT 98; BMI 30.8
== END 2024-04-27 10:44 | disposition home or self-care (01) ==
PROVIDERS: PCP Physician Assistant Medical; Visit Provider Internal Medicine
DX: J44.9 Chronic obstructive pulmonary disease, unspecified (principal); F17.210 Nicotine dependence, cigarettes, uncomplicated; R91.1 Solitary pulmonary nodule
CPT/HCPCS: 99213

== ENCOUNTER 2024-04-29 10:43 | Outpatient (AMB) | payer MEDICARE, OTHER, SELFPAY ==
--- NOTE | 2024-04-29 11:00 | A.OFFPC_ITS ---
Vital Signs 04/29/24 11:01 Height 5 ft 3 in Weight 173 lb BMI 30.6 BP 116/68 Blood Pressure Location Lt brachial Position Sitting Pulse 77 Pulse Source Pulse Oximeter Temp 97.1 F Temp Source Temporal Artery Scan Pulse Oximetry (%) 96 Oxygen Delivery Method Room Air Intake Visit Reasons: 3 month f/u Sexual Health Physician Required: No Accompanied by: Self / Same As Patient Allergies No Known Drug Allergies Allergy (Unknown, Verified 04/29/24 11:23) NONE SEASONAL ALLERGIES Allergy (Unknown, Uncoded 04/29/24 11:23) SNEEZING,ITCHY NOSE Medication List - Last Reconciled 04/29/24 by Osiris Ascencio PA-C albuterol sulfate 90 mcg/actuation 2 puffs inhalation Q4-6H PRN 30 days aspirin (Adult Aspirin Regimen) 81 mg PO DAILY atorvastatin 80 mg PO DAILY bupropion HCl SR (Wellbutrin SR) 150 mg PO BID 30 days ferrous sulfate 325 mg PO BID fluoxetine 40 mg (2 x 20 mg) PO DAILY fluticasone propion-salmeterol 250-50 mcg/dose (Wixela Inhub) 1 inh inhalation BID 30 days fluticasone propion-salmeterol 500-50 mcg/dose (Wixela Inhub) 1 ea inhalation BID lisinopril 10 mg PO DAILY lorazepam 1 mg PO Q6-8H PRN metformin 500 mg PO BID nicotine 1 patch transdermal Q24H 28 days nicotine 1 patch transdermal DAILY 28 days nicotine 1 patch transdermal DAILY 28 days omeprazole 20 mg PO DAILY tramadol 50 mg PO Q6H PRN Tobacco use date assessed: 04/29/24 Fall risk assessment: No Falls in past year Last assessed Fall Risk: 04/29/24 Dental Screening Dental Screen Date: 04/29/24 Did you have a dental visit in the last 12 months?: No Did you have a dental problem in the last 6 months where you did not have access to dental care?: No Was dental information given to patient?: Patient has dentist [facility] [place] Medical History (Updated 04/29/24 @ 16:16 by Osiris Ascencio PA-C) UTI (urinary tract infection) Bunion Hammer toe Hard of hearing Hypertension Hyperlipidemia Type 2 diabetes mellitus with obesity COPD (chronic obstructive pulmonary disease) Nicotine dependence, cigarettes, uncomplicated Iron deficiency anemia Urinary incontinence Overactive bladder Obesity Surgical History History of section History of hysterectomy Family History Father No problems noted. Mother No problems noted. Social History Housing: House Alcohol intake: current Alcohol intake frequency: a few times a week Patient Tobacco Use Status: Former Tobacco user Tobacco use type: Cigarette Years Smoked: 50 e-Cigarette/Vaping Use: Never Used Second Hand Smoke Exposure: Yes service: No Current occupational status: retired Cognitive needs: No Hearing needs: No Vision needs: Yes (glasses) Questionnaire PHQ-9 Over the last 2 weeks, how often have you been bothered by any of the following problems? 1. Little interest or pleasure in doing things: not at all 2. Feeling down, depressed, or hopeless: not at all 3. Trouble falling or staying asleep, or sleeping too much: not at all 4. Feeling tired or having little energy: not at all 5. Poor appetite or overeating: not at all 6. Feeling bad about yourself - or that you are a failure or have let yourself or your family down: not at all 7. Trouble concentrating on things, such as reading the newspaper or watching television: not at all 8. Moving or speaking so slowly that other people could have noticed. Or the opposite - being so fidgety or restless that you have been moving around a lot more than usual: not at all 9. Thoughts that you would be better off or of hurting yourself in some way: not at all Total score: 0 Depression Screening Interpretation: Negative Depression Screening Done: Yes 32849 - PHQ-9 Billing: Yes Source: Developed by Drs. Levon Rodriguez, Magdalene Morrison, Ranjan Marcano and colleagues, with an educational jigna from [employer]. Thrive Questionnaire Date Thrive assessed: 04/29/24 I am a: Patient What is your living situation today?: I have a steady place to live Within the past 12 months, did the food you bought not last and you didn't have the money to get more?: Never true Within the past 12 months, did you worry whether your food would run out before you got money to buy more?: Never true Do you have trouble paying for medicines?: No Do you have trouble getting transportation to medical appointments?: No Do you have trouble paying your heating and electricity bill?: No Do you have trouble taking care of your child, family member or friend?: No Do you have trouble with day-to-day activities such as bathing, preparing meals, shopping, managing finances, etc.?: No Are you currently unemployed and looking for a job?: No Are you interested in more education?: No Please select the resources that you would like help with: None Currently or been in a relationship where the following occur: No concerns reported THRIVE Score: 0 AUDIT C Alcohol Use Questionnaire (AUDIT-C) 1. How often do you have a drink containing alcohol?: Monthly or less 2. How many drinks containing alcohol do you have on a typical day when you are drinking?: 1 or 2 3. How often do you have six or more drinks on one occasion?: Less than monthly Total Score: 2 Score Reviewed/Action Taken: Yes (Score reviewed patient does not feel like she needs to be referred) KAYLIE-7 AMB Questionnaire KAYLIE-7 Date KAYLIE - 7 assessed: 04/29/24 Feeling nervous, anxious, or on edge: 1 = Several days Not being able to stop or control worryin = Not at all Worrying too much about different things: 1 = Several days Trouble relaxin = More than half the days Being so restless that it is hard to sit still: 0 = Not at all Becoming easily annoyed or irritable: 2 = More than half the days Feeling afraid as if something awful might happen: 0 = Not at all Total KAYLIE-7 score (0-4 normal; 5-9 mild; 10-14 moderate; 15-21 severe): 6 Source: Developed by Drs. Levon Rodriguez, Magdalene Morrison, Ranjan Marcano and colleagues, with an educational jigna from [employer]. KAYLIE-7 Assessment Billing KAYLIE-7 Assessment Tool: KAYLIE-7 Assessment 64646 Physical exam (Primary Care) Vital Signs: Last Vital Signs Temp 97.1 F 04/29/24 11:01 Pulse 77 04/29/24 11:01 BP 116/68 04/29/24 11:01 Pulse Ox 96 04/29/24 11:01 Oxygen Delivery Method Room Air 04/29/24 11:01 BMI result Body Mass Index 30.6 Tobacco/Smoking Status: Tobacco use Status Tobacco use date assessed 04/29/24 04/29/24 11:18 Patient Tobacco Use Status Former Tobacco user 04/29/24 11:03 Tobacco use type Cigarette 04/29/24 11:03 e-Cigarette/Vaping Use Never Used 04/29/24 11:03 PHQ-9: PHQ-9 Score PHQ-9: Total score 0 04/29/24 11:24 Depression Screening Interpretation: Negative Thrive Assessment: Date of Thrive Assessment Date Thrive assessed 04/29/24 04/29/24 11:18 Currently or been in a relationship where the following occur: No concerns reported Results AMB Urinalysis, Automated UA Leukoctes 15 Miguelito/uL Last Edit by Meghan Godinez CMA on 04/29/24 11:2 2 UA Nitrite Negative Last Edit by Meghan Godinez CMA on 04/29/24 11:22 UA Urobilinogen 0.2 mg/dL Last Edit by Meghan Godinez CMA on 04/29/24 11:22 UA Protein 15 mg/dL Last Edit by Meghan Godinez CMA on 04/29/24 11:22 UA pH 6.0 Last Edit by Meghan Godinez CMA on 04/29/24 11:22 UA Blood 0 Michele/uL Last Edit by Meghan Godinez CMA on 04/29/24 11:22 UA Specific [place] 1.020 Last Edit by Meghan Godinez CMA on 04/29/24 11:22 UA Ketone Negative Last Edit by Meghan Godinez CMA on 04/29/24 11:22 UA Bilirubin 0 mg/dL Last Edit by Meghan Godinez CMA on 04/29/24 11:22 UA Glucose 0 mg/dL Last Edit by Meghan Godinez CMA on 04/29/24 11:22 Results Reviewed Results Reviewed: Laboratory Last Values Urine pH (Auto) 6.0 04/29/24 11:20 Specific [place] (Auto) 1.020 04/29/24 11:20 Urine Protein (Auto) 15 mg/dL 04/29/24 11:20 Glucose (UA)(Auto) 0 mg/dL 04/29/24 11:20 Urine Ketones (Auto) Negative 04/29/24 11:20 Urine Blood (Auto) 0 Michele/uL 04/29/24 11:20 Urine Nitrite (Auto) Negative 04/29/24 11:20 Urine Bilirubin (Auto) 0 mg/dL 04/29/24 11:20 Urine Urobilinogen (Auto) 0.2 mg/dL 04/29/24 11:20 Leukocyte Esterase (Auto) 15 Miguelito/uL 04/29/24 11:20 Coding Level of Care Code Est Pt Level 4 (31089) Complex EM visit Add On G2211 Diagnoses Hard of hearing H91.90 Hammer toe M20.40 Bunion M21.619 Hypertension I10 Hyperlipidemia E78.5 Type 2 diabetes mellitus with obesity E11.69; E66.9 Iron deficiency anemia D50.9 COPD (chronic obstructive pulmonary disease) J44.9 Pulmonary nodule R91.1 Nicotine dependence, cigarettes, uncomplicated F17.210 UTI (urinary tract infection) N39.0 Additional Codes KAYLIE-7 Assessment Billing - KAYLIE-7 Assessment Tool: KAYLIE-7 Assessment 87009 ([id number]) PHQ-9 - 50205 - PHQ-9 Billing: Yes ([id number]) Assessment & Plan Assessment & Plan (1) Hard of hearing: Code(s): H91.90 - Unspecified hearing loss, unspecified ear Category: Medical Plan: Will refer to ENT. Condition is chronic and stable will continue to monitor. (2) Hammer toe: Code(s): M20.40 - Other hammer toe(s) (acquired), unspecified foot Category: Medical Plan: Will refer to Podiatry. Condition is chronic and stable continue to monitor. (3) Bunion: Code(s): M21.619 - Bunion of unspecified foot Category: Medical Plan: Will refer to Podiatry. Condition is chronic and stable continue to monitor. (4) Hypertension: Code(s): I10 - Essential (primary) hypertension Category: Medical Plan: Blood pressure goal less than 130/80. Blood pressure today at goal. Patient to continue 81 mg of aspirin daily, lisinopril 10 mg daily, condition is chronic and stable continue to monitor. (5) Hyperlipidemia: Code(s): E78.5 - Hyperlipidemia, unspecified Category: Medical Plan: Patient to continue atorvastatin 80 mg daily. Condition is chronic and stable continue to monitor. (6) Type 2 diabetes mellitus with obesity: Code(s): E11.69 - Type 2 diabetes mellitus with other specified complication; E66.9 - O besity, unspecified Category: Medical Plan: A1c level go less than 7.0. Patient to continue atorvastatin 80 mg daily, aspirin 81 mg daily, metformin 500 mg p.o. b.i.d.. Last A1c level perform today was 6.4 at goal. Will continue current treatment regimen. Condition is chronic and stable continue to monitor. (7) Iron deficiency anemia: Code(s): D50.9 - Iron deficiency anemia, unspecified Category: Medical Plan: Patient currently on ferrous sulfate 325 mg daily. Last hemoglobin and hematocrit 12.6/36.7. Condition is chronic and stable will continue to monitor and keep current regimen. (8) COPD (chronic obstructive pulmonary disease): Comment: She does have moderate degree of COPD which is fairly stable with the use of current medications. She uses albuterol HFA as a rescue inhaler only once in a while. Overall her breathing status has improved after the resection of a large mass in the abdomen. Code(s): J44.9 - Chronic obstructive pulmonary disease, unspecified Category: Medical Plan: Patient just recently stopped smoking is currently on nicotine patch. Patient to continue with Wixela inhaler and albuterol inhaler. Patient being followed by pulmonology. Condition is chronic and stable continue to monitor. (9) Pulmonary nodule: Comment: Patient is being followed for small pulmonary nodules. She had a CT scan in 2023 , which is stable and no significant nodules are seen. Code(s): R91.1 - Solitary pulmonary nodule Category: Medical Plan: Patient just recently stopped smoking is currently on nicotine patch. Patient to continue with Wixela inhaler and albuterol inhaler. Patient being followed by pulmonology. Condition is chronic and stable continue to monitor. (10) Nicotine dependence, cigarettes, uncomplicated: Comment: (current smoker, 48yrs, 1ppd - 40+PYH - HAS PREVIOUSLY QUIT OFF AND ON BUT WENT BACK TO SMOKING. NOW FOR THE LAST 2 WEEKS HAS NOT SMOKED. Code(s): F17.210 - Nicotine dependence, cigarettes, uncomplicated Category: Medical Plan: Patient just recently stopped smoking is currently on nicotine patch. Patient to continue with Wixela inhaler and albuterol inhaler. Patient being followed by pulmonology. Condition is chronic and stable continue to monitor. (11) UTI (urinary tract infection): Code(s): N39.0 - Urinary tract infection, site not specified Category: Medical Plan: Patient with urinary frequency and urgency UA revealed leukocytes. Will send for culture. Patient will be started on Macrobid 100 mg p.o. b.i.d. x7 days. Will continue to monitor and await culture. Plan Plan The patient will continue her current diabetes management, with her lifestyle modifications showing improvement in her A1c value. Given her urinary symptoms and recent antibiotic course unrelated to a UTI, Macrobid was prescribed to address potential underlying infection pending culture confirmation. Further evaluation by ENT is necessary to explore her hearing difficulties, possibly linked to bruxism. Podiatric referral is planned to manage her foot issues, with attention to potential surgical intervention for bunion and hammer toe. A multivitamin supplement and consideration of an updated bone density scan were advised for preventive care measures. Orders: Orders AMB Urinalysis Automated Today R30.0 - Dysuria Vitamin D 25-OH Total Today Z00.00 - Encounter for general adult medical examination without abnormal findings Vitamin B12 and Folate Today Z00.00 - Encounter for general adult medical examination without abnormal findings Vitamin B1 Today Z00.00 - Encounter for general adult medical examination without abnormal findings Magnesium Today Z00.00 - Encounter for general adult medical examination without abnormal findings XR DEXA axial skeleton Today M81.0 - Age-related osteoporosis without current pathological fracture Microalbumin, Random (w Creat) Today E11.9 - Type 2 diabetes mellitus without complications C Reactive Protein Today Z00.00 - Encounter for general adult medical examination without abnormal findings Referrals Ear/Nose/Throat Referral H91.90 - Unspecified hearing loss, unspecified ear Podiatry Referral M20.40 - Other hammer toe(s) (acquired), unspecified foot, M21.619 - Bunion of unspecified foot Medications: New lh-zrr-fvsqp-calcium carb-K1 400 mcg-500 mg calcium-20 mcg (Women's 50 Plus Multivitamin) 1 tab PO DAILY 90 tabs 1RF nitrofurantoin monohyd/m-cryst 100 mg (Macrobid) must administer with a meal/food 100 mg PO BID 7 days 14 caps 0RF Patient Instructions: Patient Instructions - Continue current diabetes regimen. - Start taking prescribed antibiotic (Macrobid) for urinary symptoms. - Expect referral calls for ENT and podiatry evaluations. - Schedule and undertake recommended blood tests, including a lipid panel, when fasting correctly. - Take prescribed multivitamins for general wellness. - Monitor and report new or worsening symptoms, especially regarding the urinary tract, hearing, and foot pain. - Follow up in three months for reassessment and further management as needed. Scribe Plan - Not visible on output: History of Present Illness The patient is a 69-year-old female presenting for follow-up on chronic conditions, including Type 2 Diabetes Mellitus, with improvement noted in her hemoglobin A1c from 6.6% to 6.4%. Current anemia indicators show no significant concerns. She has symptoms of a urinary tract infection suggested by burning symptoms, following recent antibiotics for a ruptured appendix; however, specific details of the antibiotic used are unavailable. Her auditory issues, including confirmed hearing loss and sporadic ear popping, potentially secondary to bruxism, are noted, warranting an ENT referral. Additionally, she presents with foot deformities ? a bunion and hammer toe ? impacting her gait, with an assessment for potential podiatric intervention considered necessary. Social History - Recently quit smoking; previously smoked. - Experiences occasional constipation and uses Senna. 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 - Lives in [place]. - Reports challenges related to hearing, impacting daily interactions. Review of Systems - Ears/Nose/Throat: Reports reduced hearing ability and popping sensation in ears. Physical Exam Appearance: Alert. Oriented X3. No acute distress. Head: Normal external exam. Normocephalic. Atraumatic. Eyes: Pupils are equal, round, and reactive to light. Extraocular movements intact. Conjunctiva and sclera normal. Eyelids normal. Ears: External auditory canal normal. Tympanic membranes normal. Patient reports being hard of hearing and experiences a popping sensation when laying on the ear, but examination shows ears are super clean with barely any wax. Throat: Pharynx normal. Uvula midline. Moist mucous membranes. Neck: Normal inspection. Neck supple. Full range of motion. No adenopathy. Thyroid Normal. No meningeal signs. No neck mass noted. Cardiovascular: Normal heart rate and rhythm. Heart sound normal. No murmurs noted. Pulses normal throughout. Blood pressure is 116/68. Respiratory: No respiratory distress. Painless inspiration. Breath sounds normal. No wheezes/rales/rhonchi noted. Chest nontender. No accessory muscle usage noted or decreased air movement noted. Lungs sound pretty good. Abdomen: Soft and nontender. Bowel sounds normal in all 4 quadrants. No distention noted. No organomegaly noted. No visible injury noted. Back: No costovertebral angle tenderness. Full range of motion noted. Skin: Skin warm and dry. Normal skin color. Normal skin turgor. No rashes/lesions/lacerations noted. Extremities: No lower extremity edema. Extremities exhibit normal range of motion. Extremities nontender. Patient reports a bunion and hammer toe on the foot, causing off-kilter walking and throbbing at night. Neuro: Oriented X 3. No motor deficit. No sensory deficit. Reflexes normal. Patient reports grinding teeth, which may cause inner ear noises like ringing or popping. Results - Labs: Hemoglobin A1c at 6.4%, unchanged anemia levels, urine culture pending. Plan The patient will continue her current diabetes management, with her lifestyle modifications showing improvement in her A1c value. Given her urinary symptoms and recent antibiotic course unrelated to a UTI, Macrobid was prescribed to address potential underlying infection pending culture confirmation. Further evaluation by ENT is necessary to explore her hearing difficulties, possibly linked to bruxism. Podiatric referral is planned to manage her foot issues, with attention to potential surgical intervention for bunion and hammer toe. A multivitamin supplement and consideration of an updated bone density scan were advised for preventive care measures. Patient was informed and verbally consented to the use of an ambient scribe for clinic note documentation during this visit. Discussion Notes I discussed the patient's diabetes management, noting her improved A1c and no immediate need for intervention changes. We reviewed the possibility of a urinary tract infection given her symptoms, opting to start her on Macrobid while awaiting culture results. I explained the importance of ENT evaluation for her hearing loss, noting potential links to bruxism and offering a referral. I advised on her foot deformities, recommending further assessment with podiatry to explore surgical options. The risks, benefits, and alternatives were discussed for each intervention. Our conversation also highlighted her recent smoking cessation success, reinforcing her achievements and encouraging continued avoidance of smoking. I committed to arranging referrals and adjustments in her treatment plan and ensured follow-up within three months to reassess these health concerns. Patient Instructions - Continue current diabetes regimen. - Start taking prescribed antibiotic (Macrobid) for urinary symptoms. - Expect referral calls for ENT and podiatry evaluations. - Schedule and undertake recommended blood tests, including a lipid panel, when fasting correctly. - Take prescribed multivitamins for general wellness. - Monitor and report new or worsening symptoms, especially regarding the urinary tract, hearing, and foot pain. - Follow up in three months for reassessment and further management as needed.
[2024-04-29 11:01] VITALS: BP 116/68; PULSE 77; TEMP 36.2; O2SAT 96; BMI 30.6
--- OUTSIDE RECORDS SUMMARY | 2024-04-29 12:50 | XMS_ITS | Patient Health Record ---
Author Organization [facility] Address [address] [place] [address] Care Team Providers Care Manager Lean Name Role Phone Marcela KAUFMAN, Donovan Primary Care Provider Levon Milligan Unavailable [phone] Allergies No Known Allergies Results Component Value Reference Range Notes Complete Blood Count Auto Di ff (Not yet reviewed by provider) Interpretation: Performing Lab:[facility], [address] [place] [phone] Notes/Report: White Blood Count 5.9 4.8-10.8 X10*3/uL [...] X10*3/uL NRBC Abs Auto 0.000 0.0-0.012 X10*3/uL Thyroid Stimulating Hormone Reviewed date:04/27/2024 12:42:08 PM Interpretation: Performing Lab:[facility], [address] [place] [id number] Notes/Report: Thyroid Stimulating Hormone 1.05 0.32-4.0 uIU/ mL TSH 3rd Generation ([facility]) Hemoglobin A1c Reviewed date:04/27/2024 12:42:21 PM Interpretation: Performing Lab:[facility], [address] [place] [phone] Notes/Report: Hemoglobin A1c % 6.4 <6.0 % Hemoglobin A1C Reference Range Adults: 4.8 - 6.0 % Non diabetic: < 6.0 % Goal: < 7.0 % Additional Action Suggested: > 8.0 % Note: Hemoglobin A1c results are invalid for patients with abnormal amounts of HbF. Blood transfusions may impact the HbA1c concentration in the patient sample. Estimated Average Glucose 137 eAG = Estimated average glucose which is %A1C expressed as average glucose, using the formula of the K2U-Vfeusgt Average Glucose study (ADAG), Diabetes Care, Vol.31,#8, 2007 Reason For Referral No Information Medications Medication SIG (Take, Route, Frequency, Duration) Notes [...] Calcium 80 MG Oral for 90 Active Social History Tobacco Use: Social History Observation Description Date Details (start date - stop date) Current Smoker NA - NA Tobacco Use/Smoking Question Answer Notes Patient is [...] Never (0 point) Points 4 Interpretation Positive Section Notes: Smoker; drinks 3-4 beers a f ew times a week Smoker; drinks 3-4 beers a f ew times a week Problems Problem Type SNOMED Code ICD Code Onset Dates Problem Status W/U Status Risk Notes Problem Colon cancer screening (470511373) Colon cancer screening (Z12.11) Active confirmed Problem Iron deficiency anemia (19558759) Iron deficiency anemia (D50.9) Active confirmed Problem Flatulence, eructation and gas pain (058902240) Abdominal distension (R14.0) Active confirmed Problem History of colon polyps (Z86.0100) Active confirmed Vital Signs Blood pressure diastolic 00 mm Hg 02/10/2024 Height 5 ft 3 in in 02/10/2024 Blood pressure systolic 00 mm Hg 02/10/2024 Weight 174 lbs 02/10/2024 BMI 30.82 kg/m2 02/10/2024 Encounters Encounter Location Date Provider Diagnosis [facility] [address] [place] [id number] 09/04/2023 Levon Garcia Iron deficiency anemia D50.9 and Abdominal distension R14.0 [facility] [address] [place] [phone] 02/10/2024 Levon Garcia Iron deficiency anemia D50.9 ; History of colon polyps Z86.0100 and Colon cancer screening Z12.11 [facility] [address] [place] [address] 08/14/2023 Levon Garcia [facility] [address] [place] [address] 09/04/2023 Levon Garcia Assessments Encounter Date Diagnosis (ICD Code) Assessment Notes Treatment Notes Treatment Clinical Notes Section Notes 09/04/2023 Iron deficiency anemia (ICD-10 - D50.9) Stop Iron for 1 week before the procedures Do not take the Metformin the night before nor on the morning of the procedures Do not take aspirin for three days before the procedures Given Amanda's iron deficiency anemia we did review that she will need to undergo an eventual upper endoscopy and colonoscopy in the relatively near future so as to assess for any chronic GI blood loss that could be secondary to some type of GI neoplasm, possible angiodysplasias, silent ulcer disease, gastritis, and/or esophagitis. It would also be important to exclude celiac disease and iron malabsorption as a contributing factor to her anemia. Full consent has been obtained from her for both procedures, including risks of bleeding and perforation. The procedures will be done with monitored anesthesia care. She was given the below instructions regarding adjustment of her medications for the procedures. However, prior to her undergoing these procedures I think it would be important to check the CT scan in regard to the abdominal distention and find out about her breast biopsy. She does have the CT scan scheduled for sometime in September but I will have my office try to call [facility] and see if they can move that up to a much sooner date given the distention and anemia. I shall also check some followup laboratories as outlined below, including a followup CBC and iron profile. If the CT scan is nonrevealing I will then plan to proceed with the upper endoscopy and colonoscopy for sometime in September. However, if the CT scan shows any significant abnormality that might need to be addressed sooner than her GI procedures, we might need to postpone the GI procedures for later in the year. Amanda was comfortable with this plan. Thank you again for allowing me to participate in Amanda's care. I shall continue to keep you advised of her progress. 09/04/2023 Abdominal distension (ICD-10 - R14.0) Given Amanda's iron deficiency anemia we did review that she will need to undergo an eventual upper endoscopy and colonoscopy in the relatively near future so as to assess for any chronic GI blood loss that could be secondary to some type of GI neoplasm, possible angiodysplasias, silent ulcer disease, gastritis, and/or esophagitis. It would also be important to exclude celiac disease and iron malabsorption as a contributing factor to her anemia. Full consent has been obtained from her for both procedures, including risks of bleeding and perforation. The procedures will be done with monitored anesthesia care. She was given the below instructions regarding adjustment of her medications for the procedures. However, prior to her undergoing these procedures I think it would be important to check the CT scan in regard to the abdominal distention and find out about her breast biopsy. She does have the CT scan scheduled for sometime in September but I will have my office try to call [facility] and see if they can move that up to a much sooner date given the distention and anemia. I shall also check some followup laboratories as outlined below, including a followup CBC and iron profile. If the CT scan is nonrevealing I will then plan to proceed with the upper endoscopy and colonoscopy for sometime in September. However, if the CT scan shows any significant abnormality that might need to be addressed sooner than her GI procedures, we might need to postpone the GI procedures for later in the year. Amanda was comfortable with this plan. Thank you again for allowing me to participate in Amanda's care. I shall continue to keep you advised of her progress. 02/10/2024 Iron deficiency anemia (ICD-10 - D50.9) Do not take aspirin on the morning of the procedure Do not take the Metformin the night before or on the morning of the procedure Stop Iron for 1 week before the procedure Overall, Amanda appears well. She is not having any new or worrisome GI complaints. She does not appear to be anemic on exam and is not describing any particular symptoms of anemia at this time. It appears that she is recovering nicely from her [employer] surgery over the summer and her ongoing breast cancer treatments. I have recommended a colonoscopy for some time down the road for followup of her previous history of polyps, as well as for the previous anemia. We did review the rationale for this regard to colorectal cancer prevention and/or early detection. I will check a followup CBC and iron profile. If she remains anemic I would then plan to do an upper endoscopy on the same day as well. If her anemia has resolved I would then plan to hold off on the upper endoscopy as she is not having any upper GI symptoms in that regard. Full consent was obtained from her for the procedures, including risks of bleeding and perforation. She was given the below instructions regarding adjustment of her medications for the procedures. The procedures will be done with monitored anesthesia care. Amanda was comfortable with this plan. Thank you again for allowing me to participate in Amanda's care. I shall continue to keep you advised of her progress. 02/10/2024 History of colon polyps (ICD-10 - Z86.0100) Overall, Amanda appears well. She is not having any new or worrisome GI complaints. She does not appear to be anemic on exam and is not describing any particular symptoms of anemia at this time. It appears that she is recovering nicely from her [employer] surgery over the summer and her ongoing breast cancer treatments. I have recommended a colonoscopy for some time down the road for followup of her previous history of polyps, as well as for the previous anemia. We did review the rationale for this regard to colorectal cancer prevention and/or early detection. I will check a followup CBC and iron profile. If she remains anemic I would then plan to do an upper endoscopy on the same day as well. If her anemia has resolved I would then plan to hold off on the upper endoscopy as she is not having any upper GI symptoms in that regard. Full consent was obtained from her for the procedures, including risks of bleeding and perforation. She was given the below instructions regarding adjustment of her medications for the procedures. The procedures will be done with monitored anesthesia care. Amanda was comfortable with this plan. Thank you again for allowing me to participate in Amanda's care. I shall continue to keep you advised of her progress. 02/10/2024 Colon cancer screening (ICD-10 - Z12.11) Overall, Amanda appears well. She is not having any new or worrisome GI complaints. She does not appear to be anemic on exam and is not describing any particular symptoms of anemia at this time. It appears that she is recovering nicely from her [employer] surgery over the summer and her ongoing breast cancer treatments. I have recommended a colonoscopy for some time down the road for followup of her previous history of polyps, as well as for the previous anemia. We did review the rationale for this regard to colorectal cancer prevention and/or early detection. I will check a followup CBC and iron profile. If she remains anemic I would then plan to do an upper endoscopy on the same day as well. If her anemia has resolved I would then plan to hold off on the upper endoscopy as she is not having any upper GI symptoms in that regard. Full consent was obtained from her for the procedures, including risks of bleeding and perforation. She was given the below instructions regarding adjustment of her medications for the procedures. The procedures will be done with monitored anesthesia care. Amanda was comfortable with this plan. Thank you again for allowing me to participate in Amanda's care. I shall continue to keep you advised of her progress. Plan Of Treatment Pending Test Test Name Order Date IRON + IBC (FE) 09/04/2023 IRON + IBC (FE) 02/10/2024 VITAMIN B12 AND FOLATE 09/04/2023 CBC w DIFF 02/10/2024 CBC w DIFF 09/04/2023 Complete Blood Count Auto Diff Ferritin 02/10/2024 Ferritin 09/04/2023 Vitamin B12 and Folate 02/10/2024 Future Test Test Name Order Date UPPER GI ENDOSCOPY 09/04/2023 COLONOSCOPY 09/04/2023 COLONOSCOPY 02/10/2024 Next Appt Details Provider Name:Levon Garcia , 05/24/2024 10:50:00 AM, [address] [place] , [place], [place], [phone], Insurance Providers Payer Name Payer Address Payer Phone Subscriber Number Group Number Insured Name Patient Relationship to Insured Coverage Start Date Coverage End Date MEDICARE OF [place] [address] [place] [address] [phone] [id number] LETICIAJuly Self - patient is the insured [employer] ([employer]) [address] [place] [address] [id number] LETICIAJuly Self - patient is the insured Medical (General) History Medical History History ICD Code 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 Alegre did the most recent exam sometime before 2019 Thinks she had an upper endo many years ago Denies SD,renal disease [place] hiatal hernia seen on CT scan of the chest in April of 2023.... 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 Guzmán at [facility] at [facility]-she had removal of the left ovary and left fallopian tube--there was no malignancy Breast biopsy on 09/03/2023 - -she describes the diagnosis of breast cancer with DCIS -she describes 2 subsequent surgeries later in 2023 and then followed by radiation treatments through January of 2024
--- OUTSIDE RECORDS SUMMARY | 2024-04-29 12:50 | XMS_ITS ---
Author Organization [facility] Address [address] [place] [address] Care Team Providers Care Caul Puller Name Role Phone Donovan Medrano MD Primary Care Provider Levon Milligan Unavailable [phone] REASON FOR VISIT colon screening Encounters Encounter Location Date Provider Diagnosis [facility] [address] [facility] [address] [place] [phone] 12/05/2023 Levon Garcia Plan Of Treatment Next Appt Details Provider Name:Levon Garcia , 05/24/2024 10:50:00 AM, [address] [place] [address] , [place], [place], [phone], Progress Notes * July DDOB:[birth year] (69 yo F)Acc No.[id number]:12/05/2023 Progress Notes Patient:?LETICIAJuly Provider:?Levon Garcia MD :1955???Age:68 Y???Sex:Female D ate:12/05/2023 Address:[address] [place] [address] [address] , [facility] Pcp:Donovan Medrano MD Subjective: * Chief Complaints: * ???1. Colon screening. * Medical History:? Objective: * Vitals:? Assessment: Plan: * Treatment: * * The named appointment provid er may or may not be the originator of this progress note, and it is not deemed complete until electronically signed by the appointment provider. Sign off status: Pending * Provider:?Levon Garcia MD Date:? 024 Generated for Cynthia zavala/Mckinley/William on:?04/29/2024 12:49 PM EST
--- OUTSIDE RECORDS SUMMARY | 2024-04-29 12:50 | XMS_ITS ---
Author Organization [facility] Address [address] [place] [address] Care Team Providers Care Climatology Teacher Name Role Phone Donovan Medrano MD Primary Care Provider Levon Milligan Unavailable [phone] Allergies No Known Allergies REASON FOR VISIT Patient presents today for anemia Medications Medication SIG (Take, Route, Frequency, Duration) [...] Inhub 500-50 MCG/ACT Inhalation for 30 Active Social History Tobacco Use: Social History [...] Problem Status W/U Status Risk Notes Problem History of colon polyps (Z86.0100) Active confirmed Problem Colon cancer screening (390393591) Colon cancer screening (Z12.11) Active confirmed Vital Signs Blood pressure systolic 00 mm Hg 02/10/20 24 Blood pressure diastolic 00 mm Hg 024 Height 5 ft 3 in in 02/10/2024 Weight 174 lbs 02/10/2024 BMI 30.82 kg/m2 02/10/2024 Encounters Encounter Location Date Provider Diagnosis [facility] [address] [place] [address] 02/10/2024 Levon Garcia Iron deficiency anemia D50.9 ; History of colon polyps Z86.0100 and Colon cancer screening Z12.11 Assessments Encounter Date Diagnosis (ICD Code) Assessment Notes Treatment Notes Treatment Clinical Notes Section Notes 02/10/2024 Iron deficiency anemia (ICD-10 - [...] that she is recovering nicely from her CERAMIC DESIGN ENGINEER surgery over the summer and her ongoing [...] that she is recovering nicely from her CERAMIC DESIGN ENGINEER surgery over the summer and her ongoing [...] that she is recovering nicely from her CERAMIC DESIGN ENGINEER surgery over the summer and her ongoing [...] advised of her progress. Plan Of Treatment Treatment Notes Assessment Notes Iron deficiency anemia [...] Provider Name:Levon Garcia , 05/24/2024 10:50:00 AM, [address] [place] [address], [phone], Progress Notes * AMANDA KELLY DDOB:[birth year] (68 yo F)Acc No.[id number]:02/10/2024 Progress Notes Patient:?AMANDA KELLY D Provider:?Levon Garcia MD :1955???Age:68 Y???Sex:Female D ate:02/10/2024 Address:[address] [place] [address] Pcp:Donovan Medrano MD Subjective: * Chief Complaints: * ???Patient presents today fo r anemia * HPI: ???incontinence:? I saw Amanda in followup today in regard to her iron deficiency anemia. ?As you know, I met Amanda in August at which time we had scheduled her for an upper endoscopy and colonoscopy in regard to iron deficiency anemia. She was not having any particular GI complaints at that time and had undergone a previous colonoscopy over 5 years ago with removal of polyps by her history. As you know, she had a subsequent CT scan of the abdomen due to increasing abdominal distention and was found to have a pelvic mass. She underwent surgery for that later in the summer with Dr. Guzmán at [facility]. Fortunately, this turned out to be a large benign serous cystadenoma of the left ovary. She had a resection of her left ovary and fallopian tube, as she had had a previous partial hysterectomy many years ago. She recovered nicely from that. ?Subsequent to that she did have to undergo 2 breast surgeries for lumpectomies for breast cancer and is currently just finishing up radiation treatments. ?She reports that she otherwise feels well. She enjoys a good appetite and denies any significant heartburn or dysphagia. Her bowel movements have been regular and without any obvious signs of bleeding. She denies abdominal pain, any further abdominal distention, jaundice, nor unintentional weight loss. ?She does remain on iron in regard to the previous anemia. She reports that she is scheduled for some upcoming blood work. * ROS:?General/Constitutional:?Change in appetite?denies.?Chills?denies.?Fatigue?denies.?Ophthalmologic:?Comments?all negative.?ENT:?Comments?all negative.?Respiratory:?hemoptysis?denies.?Cough?denies.?Cardiovascular:?Chest pain?denies.?Orthopnea?denies.?Gastrointestinal:?Comments?See HPI for details.?Genitourinary:?Hematuria?denies.?Dysuria?denies.?Musculoskeletal:?Painful joints?denies.?Weakness?denies.?Skin:?Itching?denies.?Rash?denies.?Neurologic:?Headache?denies.?Seizures?denies.?Psychiatric:?Comments?all negative.? * Medical History:? * Surgical History:?Partial Hy sterectomy Serous cystadenoma of the left ovary with surgery by Dr. Guzmán at [facility] DESIGN ENGINE[facility] oncology at [facility]-she had removal of the left ovary and left fallopian tube--there was no malignancy Breast biopsy on 09/03/2023 --she describes the diagnosis of breast cancer with DCIS -she describes 2 subsequent surgeries later in 2023 and then followed by radiation treatments through January of 2024 * Hospitalization/Major Diagno stic Procedure:?No Hospitalization History. * Family History:?Father: dece ased, cirrhosis.?Mother: .? No known hx of colon cancer. * Social History:?Tobacco Use:?Tobacco Use/Smoking?Patient is a?current smoker,?How often do you smoke cigarettes??every day,?How many cigarettes a day do you smoke??6-10,?Are you interested in quitting??Ready to quit.?Drugs/Alcohol:?Alcohol Screen?Did you have a drink containing alcohol in the past year??Yes,?How often did you have a drink containing alcohol in the past year??2 to 3 times a week (3 points),?How many drinks did you have on a typical day when you were drinking in the past year??3 or 4 drinks (1 point),?How often did you have 6 or more drinks on one occasion in the past year??Never (0 point),?Points?4,?Interpretation?Positive.?Miscellaneous:?Marital status: . 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 ???Smoker; drinks 3-4 beers a few times a week. * Medications:?TakingIron Baby Aspirin metFORMIN HCl 500 MG Tablet Oral FLUoxetine HCl 20 MG Capsule Oral Atorvastatin Calcium 80 MG Tablet Oral traMADol HCl 50 MG Tablet Oral Lisinopril 10 MG Tablet Oral Albuterol Sulfate HFA 108 (90 Base) MCG/ACT Aerosol Solution INHALE 2PUFFS EVERY 4 TO 6 HOURS NEEDED FOR SHORTNESS OF BREATH OR WHEEZING FOR 30 DAYS Inhalation Omeprazole 20 MG Capsule Delayed Release Oral , Notes: PRNWixela Inhub 500-50 MCG/ACT Aerosol Powder Breath Activated Inhalation buPROPion HCl ER (SR) 150 MG Tablet Extended Release 12 Hour 1 tablet in the morning Oral twice a dayTaking Iron Taking Baby Aspirin Taking metFORMIN HCl 500 MG Tablet Oral Taking FLUoxetine HCl 20 MG Capsule Oral Taking Atorvastatin Calcium 80 MG Tablet Oral Taking traMADol HCl 50 MG Tablet Oral Taking Lisinopril 10 MG Tablet Oral Taking Albuterol Sulfate HFA 108 (90 Base) MCG/ACT Aerosol Solution INHALE 2PUFFS EVERY 4 TO 6 HOURS NEEDED FOR SHORTNESS OF BREATH OR WHEEZING FOR 30 DAYS Inhalation Taking Omeprazole 20 MG Capsule Delayed Release Oral , Notes: PRNTaking Wixela Inhub 500-50 MCG/ACT Aerosol Powder Breath Activated Inhalation Taking buPROPion HCl ER (SR) 150 MG Tablet Extended Release 12 Hour 1 tablet in the morning Oral twice a dayNot-Taking/PRNLORazepam 1 MG Tablet TAKE 1 TABLET ORALLY EVERY 6 TO 8 HOURS NEEDED FOR ANXIETY Oral Not-Taking/PRN LORazepam 1 MG Tablet TAKE 1 TABLET ORALLY EVERY 6 TO 8 HOURS NEEDED FOR ANXIETY Oral DiscontinuedVitamin C 500 MG Capsule as directed Orally Medication List reviewed and reconciled with the patientDiscontinued Vitamin C 500 MG Capsule as directed Orally Medication List reviewed and reconciled with the patient * Allergies:?N.K.D.A.yes[Aller gies Verified] Objective: * Vitals:?Wt: 174 lbs, Ht: 5 f t 3 in, BMI:30.82 Index, BP: 00/00 mm Hg. * Examination: ???General Examination: ?GENERAL APPEARANCE:?pleasant, well nourished, well developed, in no acute distress.?EYES:?sclera non-icteric.?ORAL CAVITY:?mucosa moist.?NECK/THYROID:?no cervical lymphadenopathy, neck supple.?SKIN:?nonjaundiced, no spider angiomata.?HEART:?S1, S2 normal.?LUNGS:?clear to auscultation bilaterally.?ABDOMEN:?Her abdomen does appear to be definitely distended and somewhat firm, but there are normal bowel sounds, the abdomen is nontender, there is no guarding or rigidity, and there are no definitive masses palpable..?EXTREMITIES:?no edema.?NEUROLOGIC:?alert and oriented.? Assessment: * Assessment: 1.?Iron deficiency anemia - D50.9 (Primary)?2.?History of colon polyps - Z86.0100?3.?Colon cancer screening - Z12.11? Overall, Amanda appears well. She is not having any new or worrisome GI complaints. She does not appear to be anemic on exam and is not describing any particular symptoms of anemia at this time. It appears that she is recovering nicely from her CERAMIC DESIGN ENGINEER surgery over the summer and her ongoing [...] to keep you advised of her progress. Plan: * Treatment: Notes: Do not take aspirin on the morning of the procedure Do not take the Metformin the night before or on the morning of the procedure Stop Iron for 1 week before the procedure??2.?History of colon polyps?LAB: IRON + IBC (FE) ?LAB: CBC w DIFF ?LAB: Ferritin ?LAB: Vitamin B12 and Folate ?Procedure: COLONOSCOPY (Ordered for 02/10/2024)* with MACsched for 05/24/24 at 10:50 ammiralax 3.?Colon cancer screening?LAB: IRON + IBC (FE) ?LAB: CBC w DIFF ?LAB: Ferritin ?LAB: Vitamin B12 and Folate ?Procedure: COLONOSCOPY (Ordered for 02/10/2024)* with MACsched for 05/24/24 at 10:50 ammiralax * Procedure Codes:?3017F COLOR ECTAL CA SCREEN DOC [id number] TOBACCO [id number] BP SCR NOT PRFRM REC REASON NOS * Preventive Medicine:? ??Counseling:?Care goal follow-up plan:?Above Normal BMI Follow-up?Giving encouragement to exercise,?BMI management provided?Yes.? ??Urinary Incontinence:?Urinary Incontinence?Assessment:?Absent,?Plan of care documented:?No, reason not specified.? ??Screenings:?Fall Risk Screening?Fall Risk Assessment:?No falls in the past year,?Screening:?No falls in the past year,?Assessment:?Not performed, no reason specified,?Plan of Care:?Not documented, no reason specified.? * Follow Up:?prn * * Sign off status: Completed true * Provider:?Levon Garcia MD Date:? 024 Generated for Cynthia zavala/Mckinley/Camachoitting on:?04/29/2024 12:50 PM EST History and Physical Notes * HPI (History of Present Illness) Category Sub-Category Detail Notes Category Not es incontinence I saw July in followup today in regard to her iron deficiency anemia. As you know, I met July in August at which time we had scheduled her for an upper endoscopy and colonoscopy in regard to iron deficiency anemia. She was not having any particular GI complaints at that time and had undergone a previous colonoscopy over 5 years ago with removal of polyps by her history. As you know, she had a subsequent CT scan of the abdomen due to increasing abdominal distention and was found to have a pelvic mass. She underwent surgery for that later in the summer with Dr. Guzmán at [facility]. Fortunately, this turned out to be a large benign serous cystadenoma of the left ovary. She had a resection of her left ovary and fallopian tube, as she had had a previous partial hysterectomy many years ago. She recovered nicely from that. Subsequent to that she did have to undergo 2 breast surgeries for lumpectomies for breast cancer and is currently just finishing up radiation treatments. She reports that she otherwise feels well. She enjoys a good appetite and denies any significant heartburn or dysphagia. Her bowel movements have been regular and without any obvious signs of bleeding. She denies abdominal pain, any further abdominal distention, jaundice, nor unintentional weight loss. She does remain on iron in regard to the previous anemia. She reports that she is scheduled for some upcoming blood work. Examination Category Sub-Category Detail Notes Category Not es General Examination GENERAL APPEARANCE: pleasant , well [...]
--- OUTSIDE RECORDS SUMMARY | 2024-04-29 12:50 | XMS_ITS ---
Author Organization [facility] Address [address] [place] [address] Care Team Providers Care Chemical Production Engineer Name Role Phone Donovan Medrano MD Primary Care Provider Levon Milligan Unavailable [phone] REASON FOR VISIT fe def anemia Encounters Encounter Location Date Provider Diagnosis [facility] [place] [address] [place] [phone] 10/13/2023 Levon Garcia Plan Of Treatment Next Appt Details Provider Name:Levon Garcia , 05/24/2024 10:50:00 AM, [address] [place] [address], [phone], Progress Notes * July DDOB:[birth year] (69 yo F)Acc No.[id number]:10/13/2023 EGD&COL/MAC Patient:?LETICIAJuly Provider:?Levon Garcia MD :1955???Age:68 Y???Sex:Female D ate:10/13/2023 Address:[address] [place] [address] [address] , [place], [phone] Pcp:Donovan Medrano MD Subjective: * Chief Complaints: * ???1. Fe def anemia. * Medical History:? Objective: * Vitals:? Assessment: Plan: * Treatment: * * The named appointment provid er may or may not be the originator of this progress note, and it is not deemed complete until electronically signed by the appointment provider. Sign off status: Pending * Provider:?Levon Garcia MD Date:? 024 Generated for Cynthia zavala/Mckinley/William on:?04/29/2024 12:50 PM EST
--- OUTSIDE RECORDS SUMMARY | 2024-04-29 12:51 | XMS_ITS | Patient Health Record ---
Author Organization [facility] Address [address] [place] [address] Care Team Providers Care Energy And Sustainability Manager Name Role Phone Donovan Medrano MD Primary Care Provider Unavaila tatum JiménezTova Unavailable [phone] Reason For Referral No Information Medications Medication [...] behavior of connective and other soft tissues (79657438) S.T. Mass (unspec.) (239.2) Active confirmed Problem Pain in limb (35726455) Pain in Limb (729.5) Active confirmed Problem Hallux valgus (862648295) Hallux Valgus (735.0) Active confirmed Problem Hammer toe (984792351) Hammer toe (735.4) Active confirmed Problem Metatarsalgia (04218042) Metatarsalgia (726.70) Active confirmed Problem Foot ulcer (08872588) Ulcer of Other Part of Foot (707.15) Active confirmed Problem Abscess /Cellulitis (682.7) Active confirmed Plan Of Treatment Pending Test Test Name Order Date 28180-Zxok Destruction, -10/15/201350840-Mggd Destruction, -11/26/2013 92649- Debride <25 sq cm 04/13/2013 76693- Debride <25 sq cm 05/18/2013 34767- Debride <25 sq cm 06/22/2013 40784- Debride <25 sq cm 07/22/2013 00753 I&D ABSCESS- SIMPLE,SINGLE 014 74677 I&D ABSCESS- SIMPLE,SINGLE 014 76646 I&D ABSCESS- SIMPLE,SINGLE 014 63890 I&D ABSCESS- SIMPLE,SINGLE 014 35425, [id number]-RTCHN/INJECT, JOINT/BURSA 0 06/22/2013 Insurance Providers Payer Name Payer Address Payer Phone Subscriber Number Group Number Insured Name Patient Relationship to Insured Coverage Start Date Coverage End Date [facility] ([facility]) [address] [place] [address] [phone] [id number] July Self - patient is the insured Medical (General) History Medical History History ICD Code Headaches High blood pressure Back,Hip,and Knee pain Psoriasis/eczema Chicken pox Surgical History Surgery Date(Month/Year) hysterectomy section
== END 2024-04-29 11:43 | disposition home or self-care (01) ==
PROVIDERS: PCP Physician Assistant Medical; Visit Provider Physician Assistant Medical
DX: R30.0 Dysuria (principal)

== ENCOUNTER 2024-04-29 10:43 | Outpatient (REF) | payer MEDICARE, OTHER, SELFPAY ==
[2024-04-29 18:51] LABS: Appearance Urine Clear; Color Urine Yellow; Glucose Urine UA Negative (Negative); Leukocyte Esterase Urine Trace (Negative); Nitrite Urine Negative (Negative); PH 6.5 (5.0-9.0); UMIC TRIGGER UACC YES; Urine Blood Negative (Negative); Urine Ketones Trace mg/dL (Negative); Urine Protein Negative (Neg-Trace)
[2024-04-29 19:02] LABS: Bacteria Urine 1+ (None Seen); Hyaline Casts Urine 0-2 /LPF (0-2); RBC Urine 0-2 /HPF (0-2); WBC Urine 0-5 /HPF (0-5)
== END 2024-04-29 10:44 | disposition home or self-care (01) ==
LOC: HO.LNP 10:43
PROVIDERS: PCP Physician Assistant Medical; Visit Provider Physician Assistant Medical
DX: R32 Unspecified urinary incontinence (principal); H91.90 Unspecified hearing loss, unspecified ear; M20.40 Other hammer toe(s) (acquired), unspecified foot; M21.619 Bunion of unspecified foot; E78.5 Hyperlipidemia, unspecified; E11.69 Type 2 diabetes mellitus with other specified complication; E66.9 Obesity, unspecified; D50.9 Iron deficiency anemia, unspecified; J44.9 Chronic obstructive pulmonary disease, unspecified; R91.1 Solitary pulmonary nodule; N39.0 Urinary tract infection, site not specified; F17.210 Nicotine dependence, cigarettes, uncomplicated; Z71.6 Tobacco abuse counseling
CPT/HCPCS: 81001; 81003; 96127; 99212

== ENCOUNTER 2024-05-24 09:20 | Day surgery (SDC) | payer MEDICARE, OTHER, SELFPAY ==
--- OUTSIDE RECORDS SUMMARY | 2024-04-19 13:38 | XMS_ITS | Patient Health Record ---
Author Organization [facility] Address [address] [place] [phone] Care Team Providers Care Medical Records Secretary Name Role Phone Donovan Medrano MD Primary Care Provider Levon Milligan Unavailable [phone] ALLERGIES No Known Allergies REASON FOR REFERRAL No Information MEDICATIONS Medication SIG (Take, Route, Frequency, Duration) Notes Start Date End Date Status Baby Aspirin Active buPROPion HCl ER (SR) 150 MG 1 tablet in the morning Oral twice a day Active Iron Active LORazepam 1 MG TAKE 1 TABLET ORALLY EVERY 6 TO 8 HOURS NEEDED FOR ANXIETY Oral for 7 Not-Taking Albuterol Sulfate HFA 108 (90 Base) MCG/ACT INHALE 2PUFFS EVERY 4 TO 6 HOURS NEEDED FOR SHORTNESS OF BREATH OR WHEEZING FOR 30 DAYS Inhalation for 17 Active Lisinopril 10 MG Oral for 90 A ctive Wixela Inhub 500-50 MCG/ACT Inhalation for 30 Active Omeprazole 20 MG Oral for 90 PRN A ctive FLUoxetine HCl 20 MG Oral for 90 Active metFORMIN HCl 500 MG Oral for 90 Active traMADol HCl 50 MG Oral for 15 Active Atorvastatin Calcium 80 MG Oral for 90 Active SOCIAL HISTORY Tobacco Use: Social History Observation Description Date Details (start date - stop date) Current Smoker NA - NA Sex Assigned At : Social History Observation Description Sex Assigned At Unknown Tobacco Use/Smoking Question Answer Notes Patient is a current smoker How often do you smoke cigarettes? every day How many cigarettes a day do you smoke? 6-10 Are you interested in quitting? Ready to quit Alcohol Screen Question Answer Notes Did you have a drink contain ing alcohol in the past year? Yes How often did you have a dri nk containing alcohol in the past year? 2 to 3 times a week (3 points) How many drinks did you have on a typical day when you were drinking in the past year? 3 or 4 drinks (1 point) How often did you have 6 or more drinks on one occasion in the past year? Never (0 point) Points 4 Interpretation Positive PROBLEMS Problem Type ICD Code Onset Dates Problem Status W/U Status Risk SNOMED Code Notes Problem Colon cancer screening (Z12.11) Active confirmed Colon cancer screening (772488677) Problem Iron deficiency anemia (D50.9) Active confirmed Iron deficiency anemia (01469240) Problem Abdominal distension (R14.0) Active confirmed Flatulence, eructation and gas pain (730782502) Problem History of colon polyps (Z86.0100) Active confirmed VITAL SIGNS Blood pressure diastolic 00 mm Hg 02/10/2024 Height 5 ft 3 in in 02/10/2024 Blood pressure systolic 00 mm Hg 02/10/2024 Weight 174 lbs 02/10/2024 BMI 30.82 kg/m2 02/10/2024 Encounters Encounter Location Date Provider Diagnosis [facility] [address] [phone] 09/04/2023 Levon Garcia [facility] Outpatient [address] [place] [phone] 10/13/2023 Levon Garcia [facility] [address] [place] [phone] 12/05/2023 Levon Garcia [facility] [address] [phone] 09/04/2023 Levon Garcia Iron deficiency anemia D50.9 and Abdominal distension R14.0 [facility] [address] [address] 02/10/2024 Levon Garcia Iron deficiency anemia D50.9 ; History of colon polyps Z86.0100 and Colon cancer screening Z12.11 [facility] [address] [place] [phone] 08/14/2023 Levon Garcia [facility] [address] [address] 09/04/2023 Levon Garcia ASSESSMENTS Encounter Date Diagnosis Assessment Notes Treatment Notes Treatment Clinical Notes 09/04/2023 Iron deficiency anemia (ICD-10 - D50.9) Stop Iron for 1 week before the procedures Do not take the Metformin the night before nor on the morning of the procedures Do not take aspirin for three days before the procedures 09/04/2023 Abdominal distension (ICD-10 - R14.0) 02/10/2024 Iron deficiency anemia (ICD-10 - D50.9) Do not take aspirin on the morning of the procedure Do not take the Metformin the night before or on the morning of the procedure Stop Iron for 1 week before the procedure 02/10/2024 History of colon polyps (ICD-10 - Z86.0100) 02/10/2024 Colon cancer screening (ICD-10 - Z12.11) PLAN OF TREATMENT Pending Test Test Name Order Date IRON + IBC (FE) 02/10/2024 IRON + IBC (FE) 09/04/2023 VITAMIN B12 AND FOLATE 09/04/2023 CBC w DIFF 02/10/2024 CBC w DIFF 09/04/2023 Ferritin 02/10/2024 Ferritin 09/04/2023 Vitamin B12 and Folate 02/10/2024 Future Test Test Name Order Date UPPER GI ENDOSCOPY 09/04/2023 COLONOSCOPY 09/04/2023 COLONOSCOPY 02/10/2024 Next Appt Details Provider Name:Levon Castellon Jose , 05/24/2024 10:50:00 AM, [address] [facility] , [place], [place], [phone], Insurance Providers Payer Name Payer Address Payer Phone Subscriber Number Group Number Insured Name Patient Relationship to Insured Coverage Start Date Coverage End Date MEDICARE OF [place] [address] [place] [address] [id number] July Self - patient is the insured [employer] [facility] [address] [place] [address] [phone] [id number] Self - patient is the insured MEDICAL (GENERAL) HISTORY Medical History History ICD Code 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 Alegre did the most recent exam sometime before 2019 Thinks she had an upper endo many years ago Denies [place],renal disease [place] hiatal hernia seen on CT scan of the chest in April of 2023.... 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 Guzmán at [facility]-she had removal of the left ovary and left fallopian tube--there was no malignancy Breast biopsy on 09/03/2023 - -she describes the diagnosis of breast cancer with DCIS -she describes 2 subsequent surgeries later in 2023 and then followed by radiation treatments through January of 2024
--- OUTSIDE RECORDS SUMMARY | 2024-04-19 13:38 | XMS_ITS ---
Author Organization [facility] Address [address] [place] [phone] Care Team Providers Care Manager Career Name Role Phone Donovan Medrano MD Primary Care Provider Levon Milligan Unavailable [phone] REASON FOR VISIT colon screening Encounters Encounter Location Date Provider Diagnosis [facility] [address] [place] [phone] 12/05/2023 Levon Garcia PLAN OF TREATMENT Next Appt Details Provider Name:Levon Garcia , 05/24/2024 10:50:00 AM, [address] [place] [address] , [place], [place], [phone],
--- OUTSIDE RECORDS SUMMARY | 2024-04-19 13:38 | XMS_ITS | Patient Health Record ---
Author Organization [facility] Address [address] [place] [address] Care Team Providers Care Agricultural Economics Professor Name Role Phone Donovan Medrano MD Primary Care Provider Unavaila tatum JiménezTova Unavailable [phone] Reason For Referral No Information Medications Medication SIG (Take, Route, Fr equency, Duration) Notes Start Date End Date Status Lipitor Active Work Note . . . Pt out of work due to injection therapy for . Active ZyrTEC Allergy Activ e Simvastatin Active PROzac Active Work Note . . . Pt out of work due to injection therapy for . 06/22/2013 Active Social History Tobacco use other than smoking: Question Answer Notes Are you an other tobacco user? 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 Mass (unspec.) (239.2) Active confirmed Problem Pain in limb (62628575) Pain in Limb (729.5) Active confirmed Problem Hallux valgus (810234843) Hallux Valgus (735.0) Active confirmed Problem Hammer toe (040059535) Hammer toe (735.4) Active confirmed Problem Metatarsalgia (02575420) Metatarsalgia (726.70) Active confirmed Problem Foot ulcer (86936195) Ulcer of Other Part of Foot (707.15) Active confirmed Problem Abscess /Cellulitis (682.7) Active confirmed Plan Of Treatment Pending Test Test Name Order Date 89281-Qwrp Destruction, -10/15/201316737-Laii Destruction, -11/26/2013 94542- Debride <25 sq cm 04/13/2013 32097- Debride <25 sq cm 05/18/2013 73118- Debride <25 sq cm 06/22/2013 03641- Debride <25 sq cm 07/22/2013 29534 I&D ABSCESS- SIMPLE,SINGLE 014 [id number] I&D ABSCESS- SIMPLE,SINGLE 014 [id number] I&D ABSCESS- SIMPLE,SINGLE 014 40812 I&D ABSCESS- SIMPLE,SINGLE 014 [id number], [id number]/INJECT, JOINT/BURSA 0 06/22/2013 Insurance Providers Payer Name Payer Address Payer Phone Subscriber Number Group Number Insured Name Patient Relationship to Insured Coverage Start Date Coverage End Date [facility] ([facility]) [address] [place] [address] [phone] [id number] July Self - patient is the insured Medical (General) History Medical History History ICD Code Headaches High blood pressure Back,Hip,and Knee pain Psoriasis/eczema Chicken pox Surgical History Surgery Date(Month/Year) hysterectomy section
--- OUTSIDE RECORDS SUMMARY | 2024-04-19 13:38 | XMS_ITS ---
Author Organization [facility] Address [address] [place] [phone] Care Team Providers Care Wall Worker Name Role Phone Donovan Medrano MD Primary Care Provider Levon Milligan Unavailable [phone] ALLERGIES No Known Allergies REASON FOR VISIT Patient presents today for anemia MEDICATIONS Medication SIG (Take, Route, Frequency, Duration) Notes Start Date End Date Status Albuterol Sulfate HFA 108 (90 Base) MCG/ACT INHALE 2PUFFS EVERY 4 TO 6 HOURS NEEDED FOR SHORTNESS OF BREATH OR WHEEZING FOR 30 DAYS Inhalation for 17 Active Lisinopril 10 MG Oral for 90 A ctive Omeprazole 20 MG Oral for 90 PRN A ctive traMADol HCl 50 MG Oral for 15 Active Atorvastatin Calcium 80 MG Oral for 90 Active Baby Aspirin Active Iron Active FLUoxetine HCl 20 MG Oral for 90 Active metFORMIN HCl 500 MG Oral for 90 Active buPROPion HCl ER (SR) 150 MG 1 tablet in the morning Oral twice a day Active LORazepam 1 MG TAKE 1 TABLET ORALLY EVERY 6 TO 8 HOURS NEEDED FOR ANXIETY Oral for 7 Not-Taking Wixela Inhub 500-50 MCG/ACT Inhalation for 30 Active SOCIAL HISTORY Tobacco Use: Social History [...] W/U Status Risk SNOMED Code Notes Problem History of colon polyps (Z86.0100) Active confirmed Problem Colon cancer screening (Z12.11) Active confirmed Colon cancer screening (055883243) VITAL SIGNS Blood pressure systolic 00 mm Hg 02/10/20 24 Blood pressure diastolic 00 mm Hg 024 Height 5 ft 3 in in 02/10/2024 Weight 174 lbs 02/10/2024 BMI 30.82 kg/m2 02/10/2024 Encounters Encounter Location Date Provider Diagnosis [facility] [address] [place] [address] 02/10/2024 Levon Garcia Iron deficiency anemia D50.9 ; History of colon polyps Z86.0100 and Colon cancer screening Z12.11 ASSESSMENTS Encounter Date Diagnosis Assessment Notes Treatment Notes Treatment Clinical Notes 02/10/2024 Iron deficiency anemia (ICD-10 - D50.9) Do not take aspirin on the morning of the procedure Do not take the Metformin the night before or on the morning of the procedure Stop Iron for 1 week before the procedure 02/10/2024 History of colon polyps (ICD-10 - Z86.0100) 02/10/2024 Colon cancer screening (ICD-10 - Z12.11) PLAN OF TREATMENT Treatment Notes Assessment Notes Iron deficiency anemia Do not take aspirin on the morning of the procedure Do not take the Metformin the night before or on the morning of the procedure Stop Iron for 1 week before the procedure Pending Test Test Name Order Date IRON + IBC (FE) 02/10/2024 CBC w DIFF 02/10/2024 Ferritin 02/10/2024 Vitamin B12 and Folate 02/10/2024 Future Test Test Name Order Date COLONOSCOPY 02/10/2024 Next Appt Details Follow Up: prn, Reason: Provider Name:Levon Garcia , 05/24/2024 10:50:00 AM, [address] [place] [address] , [place], [place], [phone], Progress Notes * Examination Category Sub-Category Detail Notes General Examination GENERAL APPEARANCE: pleasant , well nourished, well developed, in no acute distress EYES: sclera non-icteric NECK/THYROID: no cervical lymphade nopathy, neck supple HEART: S1, S2 normal LUNGS: clear to auscultatio n bilaterally ABDOMEN: Her abdomen does sarahy ear to be definitely distended and somewhat firm, but there are normal bowel sounds, the abdomen is nontender, there is no guarding or rigidity, and there are no definitive masses palpable. NEUROLOGIC: alert and oriented SKIN: nonjaundiced, no spi kvng angiomata EXTREMITIES: no edema ORAL CAVITY: mucosa moist
--- OUTSIDE RECORDS SUMMARY | 2024-04-19 13:38 | XMS_ITS ---
Author Organization [facility] Address [address] [place] [phone] Care Team Providers Care Plaster Mechanic Name Role Phone Donovan Medrano MD Primary Care Provider Levon Milligan Unavailable [phone] REASON FOR VISIT fe def anemia Encounters Encounter Location Date Provider Diagnosis [facility] Outpatient [address] [place] [phone] 10/13/2023 Levon Garcia PLAN OF TREATMENT Next Appt Details Provider Name:Levon Garcia , 05/24/2024 10:50:00 AM, [address] [place] [address], [phone],
[2024-05-20 12:57] VITALS: BMI 33.1
--- NOTE | 2024-05-21 09:22 | HO.ANESPROP2 ---
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) Iron deficiency anemia (Acute) COPD (chronic obstructive pulmonary disease) (Acute) Nicotine dependence, cigarettes, uncomplicated (Acute) Overactive bladder (Acute) Urinary incontinence (Acute) Obesity (Acute) Past Medical History Medical History Hiatal hernia CVA (cerebral vascular accident) UTI (urinary tract infection) Bunion Hammer toe Hard of hearing Nicotine dependence, cigarettes, uncomplicated Iron deficiency anemia COPD (chronic obstructive pulmonary disease) Hypertension Hyperlipidemia Obesity Type 2 diabetes mellitus with obesity Overactive bladder Urinary incontinence Family History Family History Father No problems noted. Mother No problems noted. Surgical History Surgical History Hx of breast biopsy H/O colonoscopy History of section History of hysterectomy Social History Social History Housing: House Are you a primary laboratory animal care veterinarian to a significant other at home: No Do you presently have visiting nurse or other home services: No Alcohol intake: current Alcohol intake frequency: a few times a week Patient Tobacco Use Status: Former Tobacco user Tobacco use type: Cigarette Years Smoked: 50 e-Cigarette/Vaping Use: Never Used Second Hand Smoke Exposure: Yes service: No Current occupational status: retired Cognitive needs: No Hearing needs: No Vision needs: Yes (glasses) Meds Allergies Allergy/AdvReac Type Severity Reaction Status Date / Time SEASONAL ALLERGIES Allergy Unknown SNEEZING,ITCHY Uncoded 05/24/24 09:31 NOSE Home Medications ?Medication ?Instructions ?Recorded ?Confirmed ?Last Taken ?Type ascorbic acid (vitamin C) 500 mg 500 mg PO DAILY 05/20/24 05/20/24 Unknown History capsule,extended release Exam Height,Weight and Vital Signs: Height 5 ft 3 in Weight 84.822 kg Assessment and Plan Assessment Anesthesia Assessment: Chart Reviewed
--- NOTE | 2024-05-24 09:02 | HO.ANESPROP2 ---
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) Iron deficiency anemia (Acute) COPD (chronic obstructive pulmonary disease) (Acute) Nicotine dependence, cigarettes, uncomplicated (Acute) Overactive bladder (Acute) Urinary incontinence (Acute) Obesity (Acute) Past Medical History Medical History Hiatal hernia CVA (cerebral vascular accident) UTI (urinary tract infection) Bunion Hammer toe Hard of hearing Nicotine dependence, cigarettes, uncomplicated Iron deficiency anemia COPD (chronic obstructive pulmonary disease) Hypertension Hyperlipidemia Obesity Type 2 diabetes mellitus with obesity Overactive bladder Urinary incontinence Functional capacity: independent ambulation Family History Family History Father No problems noted. Mother No problems noted. Family history of problems with anesthesia: No Surgical History Surgical History Hx of breast biopsy H/O colonoscopy History of section History of hysterectomy History of Problems with Anesthesia: No Social History Social History Housing: House Alcohol intake: current Alcohol intake frequency: a few times a week Patient Tobacco Use Status: Former Tobacco user Tobacco use type: Cigarette Years Smoked: 50 e-Cigarette/Vaping Use: Never Used Second Hand Smoke Exposure: Yes service: No Current occupational status: retired Cognitive needs: No Hearing needs: No Vision needs: Yes (glasses) Meds Allergies Allergy/AdvReac Type Severity Reaction Status Date / Time No Known Drug Allergies Allergy Unknown NONE Verified 04/29/24 11:23 SEASONAL ALLERGIES Allergy Unknown SNEEZING,ITCHY Uncoded 04/29/24 11:23 NOSE Home Medications ?Medication ?Instructions ?Recorded ?Confirmed ?Last Taken ?Type ascorbic acid (vitamin C) 500 mg 500 mg PO DAILY 05/20/24 05/20/24 Unknown History capsule,extended release Exam Height,Weight and Vital Signs: Height 5 ft 3 in Weight 84.822 kg Airway Mallampati Class: III TM Dist: >3cm Neck ROM: Full Heart: RRR Lungs: CTA Assessment and Plan Assessment Anesthesia Assessment: Anesthesia Plan Discussed and Chart Reviewed Final Anesthetic Review Family History of Problems with Anesthesia: No History of Problems with Anesthesia: No NPO: Yes ASA Class: III Final Preanesthetic Review: Meds/Allgs Chart Reviewed, Consent Obtained/Reviewed and Anes Risks/Benef Reviewed Patient Risk: Intermediate Procedure Risk: Low Anesthetic Plan Anesthetic Plan: MAC: Disposition: Standard PACU
[2024-05-24] MEDS: Lactated Ringers 1,000 ML 100 ML IVCONT (09:34)
[2024-05-24 09:44] VITALS: BP 137/70; PULSE 93; RESP 18; TEMP 36.7; O2SAT 96
[2024-05-24 09:47] LABS: Glucose, Whole Blood 141 mg/dL (60-115)
[2024-05-24 10:54] VITALS: BP 108/55; PULSE 76; RESP 16; TEMP 36.7; O2SAT 99
--- NOTE | 2024-05-24 10:59 | P.BOP_ITS ---
Brief Operative Note Date of Service: 05/24/24 Pre-op diagnosis: Screening Post-op diagnosis: other (Colon polyps) Procedure: Colonoscopy to the cecum and TI with cold snare polypectomy x 2 Surgeon: Levon Garcia MD Anesthesia: MAC Was an [employer] used for this Procedure?: No Estimated blood loss (mL): 2.0 Pathology: other (A. Polyp at 20cm B. Rectal polyp) Condition: stable Disposition: PACU
[2024-05-24 11:00] VITALS: BP 112/50; PULSE 75; RESP 16; O2SAT 99
[2024-05-24 11:15] VITALS: BP 103/56; PULSE 78; RESP 16; TEMP 36.6; O2SAT 99
--- NOTE | 2024-05-24 11:39 | HO.POSTANES ---
Post Anesthesia Evaluation Post Anesthesia Evaluation Vital Signs: Vital Signs Temp Pulse Resp BP Pulse Ox O2 Del Method 05/24/24 11:15 98 F 78 16 103/56 L 99 Room Air 05/24/24 11:00 75 16 112/50 L 99 Room Air 05/24/24 10:54 98.1 F 76 16 108/55 L 99 Room Air 05/24/24 09:44 98.1 F 93 18 137/70 96 Room Air Anesthesia: Monitored Mental Status: Awake Nausea/Vomiting: None Hydration: Adequate Anesthesia-Related Issues: No Anes. Related Issues
--- NOTE | 2024-05-24 12:15 | OP_ITS ---
DATE OF SERVICE: 05/24/2024 SURGEON: Levon Garcia MD INDICATIONS: The patient presents for evaluation of personal history of colon polyps and colorectal cancer screening. Full consent has been obtained from her for this, including risks of bleeding and perforation. PREOPERATIVE DIAGNOSIS: Personal history of colon polyps and colorectal cancer screening. POSTOPERATIVE DIAGNOSIS: PROCEDURE PERFORMED: Colonoscopy to the cecum and terminal ileum with cold snare polypectomy x2. ESTIMATED BLOOD LOSS: COMPLICATIONS: ANESTHESIA: Monitored anesthesia care. ASSISTANTS: SPECIMENS: POSTOPERATIVE DIAGNOSES: Personal history of colon polyps and colorectal cancer screening, colon polyps, diverticulosis, and internal hemorrhoids. DESCRIPTION OF PROCEDURE: The patient was placed in left lateral decubitus position. The digital rectal exam revealed no abnormalities, although sphincter tone was somewhat diminished. The Olympus video pediatric colonoscope was entered into the rectum and advanced to the cecum. Advancement past the sigmoid colon was somewhat difficult due to probable adhesions from her recent surgeries including the recent CALENDER TENDER surgery and a perforated appendix. Once in the cecum, I did identify normal-appearing cecal pouch with appendiceal orifice and a normal-appearing ileocecal valve. The terminal ileum was cannulated and appeared normal. The scope was withdrawn back in the colon. The entire cecum and ileocecal valve appeared normal. The scope was then slowly withdrawn assessing all mucosal surfaces carefully. Preparation was excellent. There was scattered diverticula in the ascending colon and a moderate amount of diverticulosis in the sigmoid colon. I did not visualize any sign of colitis nor angiodysplasia. At 20 cm and in the rectum were approximately 5 mm polyps, which were each removed by cold snare polypectomy and recovered by suction. Both polypectomy sites appeared clean, without any sign of residual polyp nor significant bleeding. In the rectum, scope was retroflexed visualizing small internal hemorrhoids, but no other pathology. It was somewhat difficult to retroflex in the rectum due to the somewhat diminished sphincter tone and difficulty holding air. The scope was straightened and withdrawn from the patient. She tolerated the procedure well and was returned to recovery area in stable condition. IMPRESSION: 1. Colon polyps. 2. Diverticulosis. 3. Internal hemorrhoids. PLAN: Results of the pathology will be checked. I would recommend a repeat colonoscopy in 5 years. Of note, her previous anemia had resolved with her most recent labs from early April showed a hemoglobin of 12.6 and a normal MCV. Therefore, we did not perform upper endoscopy today as the anemia had resolved. She was advised to not use any NSAIDs for least 1 week and to resume her aspirin in 72 hours. MD STUART Lizarraga/ABDIRIZAK / [id number] MTDD
== END 2024-05-24 12:12 | disposition home or self-care (01) ==
PROVIDERS: PCP Physician Assistant Medical; Visit Provider Internal Medicine
PROC: 0DJD8ZZ Inspection of Lower Intestinal Tract, Via Natural or Artificial Opening Endoscopic (ICD-10-PCS; CPT 45378; principal; 2024-05-24 09:40)
DX: Z12.11 Encounter for screening for malignant neoplasm of colon (principal); Z86.0101 Personal history of adenomatous and serrated colon polyps; D12.8 Benign neoplasm of rectum; K63.5 Polyp of colon; K57.30 Diverticulosis of large intestine without perforation or abscess without bleeding; D50.9 Iron deficiency anemia, unspecified; K64.8 Other hemorrhoids; I10 Essential (primary) hypertension; E78.5 Hyperlipidemia, unspecified; J44.9 Chronic obstructive pulmonary disease, unspecified; Q79.0 Congenital diaphragmatic hernia; E11.9 Type 2 diabetes mellitus without complications; Z86.73 Personal history of transient ischemic attack (TIA), and cerebral infarction without residual deficits; Z79.82 Long term (current) use of aspirin; Z79.84 Long term (current) use of oral hypoglycemic drugs; Z79.899 Other long term (current) drug therapy; Z98.890 Other specified postprocedural states; F17.210 Nicotine dependence, cigarettes, uncomplicated
CPT/HCPCS: 45385; 82947; 88305; J2003; J2704

== ENCOUNTER 2024-05-25 12:36 | Outpatient (REF) | payer MEDICARE, OTHER, SELFPAY ==
--- NOTE | ~2024-05-25 | MM_ITS ---
EXAMINATION: DXA BONE DENSITY AXIAL HISTORY: Estrogen deficiency TECHNIQUE: judge.me Dual energy absorptiometry (DEXA) of the lumbar spine, total left hip, and femoral neck was performed. COMPARISON: There are no prior studies for comparison. FINDINGS: The bone mineral density of the lumbar spine is 1.379 with a T-score of 1.5, and a Z-score of 2.7. This is indicative of normal bone mineral density. The bone mineral density of the left total hip is 1.198 with a T-score of 1.5, and a Z-score of 2.6. This is indicative of normal bone mineral density. The bone mineral density of the left femoral neck is 1.071 with a T-score of 0.2, and a Z-score of 1.6. This is indicative of normal bone mineral density. FRACTURE RISK: The FRAX index suggests a risk of major osteoporotic fracture of 9.9%, and of hip fracture 0.6%. MM/XR DEXA axial skeleton IMPRESSION: Based on bone mineral density, and according to World Health Organization (WHO) criteria, the diagnosis is consistent with normal bone mineral density. All bone density values are in grams per centimeter squared (g/cm2). Statistically, 68% of repeat scans fall within 1 SD (+/- 0.010 g/cm2 for AP spine L1-L4) and 1 SD (+/- 0.012 g/cm2 for femur total) FRAX is a trademark of the [employer] Met[employer] Disease, a World Health Organization (WHO) Collaborating Center. Electronically signed by: Levon Orellana MD 05/25/2024 01:37 PM EDT
--- OUTSIDE RECORDS SUMMARY | 2024-05-25 14:44 | XMS_ITS | Patient Health Record ---
Author Organization [facility] Address [address] [place] [address] Care Team Providers Care Siebel Developer Name Role Phone Donovan Medrano MD Primary Care Provider Unavaila tatum JiménezTova Unavailable [phone] Reason For Referral No Information Medications Medication [...] behavior of connective and other soft tissues (84767452) S.[place]. [place] (unspec.) (239.2) Active confirmed Problem Pain in limb (17600602) Pain in Limb (729.5) Active confirmed Problem Hallux valgus (103045039) Hallux Valgus (735.0) Active confirmed Problem Hammer toe (625090006) Hammer toe (735.4) Active confirmed Problem Metatarsalgia (43051437) Metatarsalgia (726.70) Active confirmed Problem Foot ulcer (46564092) Ulcer of Other Part of Foot (707.15) Active confirmed Problem Abscess /Cellulitis (682.7) Active confirmed Plan Of Treatment Pending Test Test Name Order Date 55851-Qlfl Destruction, -10/15/2013 37912-Cuqe Destruction, -11/26/2013 86256- Debride <25 sq cm 04/13/2013 68602- Debride <25 sq cm 05/18/2013 81505- Debride <25 sq cm 06/22/2013 42907- Debride <25 sq cm 07/22/2013 63333 I&D ABSCESS- SIMPLE,SINGLE 014 02868 I&D ABSCESS- SIMPLE,SINGLE 014 65503 I&D ABSCESS- SIMPLE,SINGLE 014 68268 I&D ABSCESS- SIMPLE,SINGLE 014 58502, K5450-RGYAC/INJECT, JOINT/BURSA 0 06/22/2013 Insurance Providers Payer Name Payer Address Payer Phone Subscriber Number Group Number Insured Name Patient Relationship to Insured Coverage Start Date Coverage End Date [facility] ([facility]) [address] [place] [address] [id number] July Self - patient is the insured Medical (General) History Medical History History ICD Code Headaches High blood pressure Back,Hip,and Knee pain Psoriasis/eczema Chicken pox Surgical History Surgery Date(Month/Year) hysterectomy section
--- OUTSIDE RECORDS SUMMARY | 2024-05-25 14:44 | XMS_ITS | Patient Health Record ---
Author Organization [facility] Address [address] [place] [address] Care Team Providers Care Hydraulic Auto Jack Mechanic Name Role Phone Marcela KAUFMAN, Donovan Primary Care Provider Levon Milligan Unavailable [phone] Allergies No Known Allergies Results Component Value Reference Range Notes Complete Blood Count Auto Di ff Reviewed date:05/23/2024 11:25:11 PM Interpretation: Performing Lab:[facility], [address] [place] [phone] Notes/Report: White Blood Count 5.9 4.8-10.8 X10*3/uL [...] 0.0-0.2 /100WBC Neutrophils Absolute Auto 4.3 2.0-8.3 x10*3/uL Imm Gran Abs Auto 0.02 0.00-0.03 X10*3/uL Lymphocytes Absolute Auto 0.8 1.2-4.9 X10*3/uL Monocytes Absolute Auto 0.5 0.1-1.2 X10*3/uL Eosinophils Absolute Auto 0.2 0.0-0.4 X10*3/uL Basophils Absolute Auto 0.1 0.0-0.2 X10*3/uL NRBC Abs Auto 0.000 0.0-0.012 X10*3/uL Thyroid Stimulating Hormone Reviewed date:04/27/2024 12:42:08 PM Interpretation: Performing Lab:[facility], [address] [place] [phone] Notes/Report: Thyroid Stimulating Hormone 1.05 0.32-4.0 uIU/mL TSH 3rd Generation ([facility]) Hemoglobin A1c Reviewed date:04/27/2024 12:42:21 PM Interpretation: Performing Lab:[facility], [address] [place] [phone] Notes/Report: Hemoglobin A1c % 6.4 <6.0 % [...] average glucose, using the formula of the Q9S-Dtnmgpe Average Glucose study (ADAG), Diabetes Care, Vol.31,#8, Sep. 2007 Glucose, Whole Blood Reviewed date:05/25/2024 12:17:03 AM Interpretation: Performing Lab:[facility], [address] [place] [phone] Notes/Report: Glucose, Whole Blood 141 60-115 mg/dL METER # : [id number] Pathology (Not yet reviewed by provider) Interpretation: Performing Lab:[facility], [address] [place] [phone] Notes/Report: -- ---- Name: LeticiaJuly Age/Sex: 69/F [facility] 1955 [id number] Unit#: [id number] Attend Dr: Levon Garcia MD Re05/24/24 Status : [facility] Location: [facility] Disch: -- ---- SPEC : [id number] RECD : 05/24/24-115 STATUS: ROCK HAYES NUM: [id number] URIEL: 05/24/24-[address] [facility] [address]: Levon Garcia MD ENTERED: 05/24/24- 05 SP TYPE: Surgical OTHR DR: Osiris Ascencio PA-C ORDERED: HE Stain/6, Gross Micro L4/2 Diagnosis A. Colon, polyp at 2 0 cm, polypectomy: Hyperplastic polyp. B. Rectum, polypectomy: Tubular adenoma; negative for high-grade dysplasia. Clinical History Pre-Op Dx: Iron deficiency anemia, unspecified Post-Op Dx: Polyps, diverticulosis, hemorrhoids Microscopic Description Microscopic sections reviewed. Material Received A. Polyp at 20 cm B. Rectal polyp Gross Description Received in two parts. Part A: Received in formalin labeled polyp at 20 cm? is a 0.5 x 0.5 x 0.3 cm hanna-pink papular tissue fragment with an attached 0.6 x 0.4 x 0.2 cm tail of hanna mucosa. The specimen is bisected and entirely submitted in a cassette labeled A. Part B: Received in formalin labeled rectal polyp? is a 0.5 x 0.4 x 0.35 cm pale, hanna papular tissue fragment, submitted in toto in a cassette labeled B. JUAN FRANCISCO Copies To: Osiris Ascencio PA-C [facility] Primary Care,[address] [place] [address] Levon Garcia MD [facility] [address] [place] [address] CONTINUED ON NEXT PAGE -- ---- Name: Amanda Chaparro Brea Age/Sex: 69/F : 1955 Unit#: [id number] Attend Dr: Levon Garcia MD Re05/24/24 Status : [facility] Location: [facility] Disch: -- ---- SPEC : [id number] RECD : 05/24/24-1150 STATUS: ROCK HAYES NUM: [id number] URIEL: 05/24/24-[address] [facility] [address]: Levon Garcia MD ENTERED: 05/24/24-12 05 SP TYPE: Surgical OTHR DR: Osiris Ascencio PA-C ORDERED: RENUKA Stain/6, Gross Micro L4/2 Copies To: (Continued) [phone] -- ---- Signed (signature on file) Aaliyah Rivero MD 05/25/24 1204 -- ---- END OF REPORT Reason For Referral No Information Medications Medication [...] Status Risk Notes Problem Colon cancer screening (621062736) Colon cancer screening (Z12.11) Active confirmed Problem Iron deficiency anemia (91623376) Iron deficiency anemia (D50.9) Active confirmed Problem Flatulence, eructation and gas pain (061426917) Abdominal distension (R14.0) Active confirmed Problem History of colon polyps (Z86.0100) Active confirmed Vital Signs Blood pressure diastolic 00 mm Hg 02/10/2024 Height 5 ft 3 in in 02/10/2024 Blood pressure systolic 00 mm Hg 02/10/2024 Weight 174 lbs 02/10/2024 BMI 30.82 kg/m2 02/10/2024 Encounters Encounter Location Date Provider Diagnosis [facility] [place] [place] Out[place] [address] [place] [id number] 05/24/2024 Levon Garcia [facility] [address] [address] 09/04/2023 Levon Garcia Iron deficiency anemia D50.9 and Abdominal distension R14.0 [facility] [address] [address] 02/10/2024 Levon Garcia Iron deficiency anemia D50.9 ; History of colon polyps Z86.0100 and Colon cancer screening Z12.11 [facility] [address] [address] 08/14/2023 Levon Garcia [facility] [address] [phone] 09/04/2023 Levon Garcia Assessments Encounter Date Diagnosis (ICD Code) Assessment Notes Treatment Notes Treatment Clinical Notes Section Notes 09/04/2023 Iron deficiency anemia (ICD-10 - D50.9) Stop Iron for 1 week before the procedures Do not take the Metformin the night before nor on the morning of the procedures Do not take aspirin for three days before the procedures Given iron deficiency anemia we did review that [...] will have my office try to call [facility] [place] [place] [facility] and see if they can move [...] will have my office try to call [facility] [place] [place] [facility] and see if they can move [...] that she is recovering nicely from her WINDOW SHADE INSTALLER surgery over the summer and her ongoing [...] that she is recovering nicely from her WINDOW SHADE INSTALLER surgery over the summer and her ongoing [...] that she is recovering nicely from her WINDOW SHADE INSTALLER surgery over the summer and her ongoing [...] B12 AND FOLATE 09/04/2023 CBC w DIFF 09/04/2023 CBC w DIFF 02/10/2024 Ferritin 02/10/2024 Ferritin 09/04/2023 Vitamin B12 and Folate 02/10/2024 Pathology 05/24/2024 Future Test Test Name Order Date UPPER GI ENDOSCOPY 09/04/2023 COLONOSCOPY 09/04/2023 COLONOSCOPY 02/10/2024 Insurance Providers Payer Name Payer Address Payer Phone Subscriber Number Group Number Insured Name Patient Relationship to Insured Coverage Start Date Coverage End Date MEDICARE OF [place] [address] [place] [address] [phone] [id number] July Self - patient is the insured [employer] ([employer]) [address] [place] [id number] July Self - patient is the insured Medical (General) History Medical History History ICD Code 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 Alegre did the most recent exam sometime before 2019 Thinks she had an upper endo many years ago Denies [place],renal disease Bochdalek hiatal hernia seen on CT scan of the chest in April of 2023.... 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 Guzmán at [facility]OW SHADE INSTALLER oncology at [facility]-she had removal of the left ovary and left fallopian tube--there was no malignancy Breast biopsy on 09/03/2023 - -she describes the diagnosis of breast cancer with DCIS -she describes 2 subsequent surgeries later in 2023 and then followed by radiation treatments through January of 2024
--- OUTSIDE RECORDS SUMMARY | 2024-05-25 14:44 | XMS_ITS ---
Author Organization [facility] Address [address] [place] [address] Care Team Providers Care Electromechanical Engineer Name Role Phone Donovan Medrano MD Primary Care Provider Levon Milligan Unavailable [phone] REASON FOR VISIT screening,hx polyps, fe def anemia Encounters Encounter Location Date Provider Diagnosis [facility] [place] [address] [place] [phone] 05/24/2024 Levon Garcia Plan Of Treatment No Information Progress Notes * July DDOB:[birth year] (69 yo F)Acc No.[id number]:05/24/2024 COLON WITH MAC Patient:?July Provider:?Levon Garcia MD :1955???Age:69 Y???Sex:Female D ate:05/24/2024 Address:[address] [place] [address] [address] , [facility] Pcp:Donovan Medrano MD Subjective: * Chief Complaints: * ???1. Screening,hx polyps, f e def anemia. * Medical History:? Objective: * Vitals:? Assessment: Plan: * Treatment: * * The named appointment provid er may or may not be the originator of this progress note, and it is not deemed complete until electronically signed by the appointment provider. Sign off status: Pending * Provider:?Levon Garcia MD Date:? 025 Generated for Josiahi ng/Fasebastieng/eTransmitting on:?05/25/2024 02:44 PM EDT
--- OUTSIDE RECORDS SUMMARY | 2024-05-25 14:44 | XMS_ITS ---
Author Organization [facility] Address [address] [place] [address] Care Team Providers Care Insole Channeler Name Role Phone Donovan Medrano MD Primary Care Provider Levon Milligan Unavailable [phone] Allergies No Known Allergies REASON FOR VISIT [...] (Z86.0100) Active confirmed Problem Colon cancer screening (303206067) Colon cancer screening (Z12.11) Active confirmed Vital Signs Blood pressure systolic 00 mm Hg 02/10/20 24 Blood pressure diastolic 00 mm Hg 024 Height 5 ft 3 in in 02/10/2024 Weight 174 lbs 02/10/2024 BMI 30.82 kg/m2 02/10/2024 Encounters Encounter Location Date Provider Diagnosis [facility] [address] [place] [address] 02/10/2024 Levon Garcia Iron deficiency anemia D50.9 [...] that she is recovering nicely from her EGG TRAYER surgery over the summer and her ongoing [...] that she is recovering nicely from her EGG TRAYER surgery over the summer and her ongoing [...] that she is recovering nicely from her EGG TRAYER surgery over the summer and her ongoing [...] Next Appt Details Follow Up: prn, Reason: Progress Notes * AMANDA KELLY DDOB:[birth year] (68 yo F)Acc No.[id number]:02/10/2024 Progress Notes Patient:?AMANDA KELLY D Provider:?Levon Garcia MD :1955???Age:68 Y???Sex:Female D ate:02/10/2024 Address:[address] [place] [address] Pcp:Donovan Medrano MD Subjective: * Chief Complaints: [...] in the summer with Dr. Guzmán at [facility]. Fortunately, this turned out to be [...] ovary with surgery by Dr. Guzmán at EGG TRAYER oncology at [facility]-she had removal of the left ovary [...] year??Never (0 point),?Points?4,?Interpretation?Positive.?Miscellaneous:?Marital status: . 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 I shall continue to keep you [...] Procedure Codes:?3017F COLOR ECTAL CA SCREEN DOC [id number] TOBACCO [id number]-[id number] BP SCR NOT PRFRM REC REASON NOS [...] MD Date:? 024 Generated for Cynthia zavala/Mckinley/William on:?05/25/2024 02:44 PM EDT History and Physical Notes * HPI (History of Present Illness) Category Sub-Category Detail Notes Category Not es incontinence I saw Amanda in followup today in [...] in the summer with Dr. Guzmán at [facility]. Fortunately, this turned out to be [...]
--- OUTSIDE RECORDS SUMMARY | 2024-05-25 14:44 | XMS_ITS ---
Author Organization [facility] Address [address] [place] [address] Care Team Providers Care Bead Picker Name Role Phone Donovan Medrano MD Primary Care Provider Levon Milligan Unavailable [phone] REASON FOR VISIT colon screening Encounters Encounter Location Date Provider Diagnosis [facility] [address] [place] [address] 12/05/2023 Levon Garcia Plan Of Treatment No Information Progress Notes * July DDOB:[birth year] (69 yo F)Acc No.[id number]:12/05/2023 Progress Notes Patient:?July Provider:?Levon Garcia MD :1955???Age:68 Y???Sex:Female D ate:12/05/2023 Address:[address] [place] [address] [address] , [facility] Pcp:Donovan Medrano MD Subjective: * Chief Complaints: [...] Garcia MD Date:? 024 Generated for Cynthia zavala/Mckinley/eTransmitting on:?05/25/2024 02:44 PM EDT
== END 2024-05-25 12:37 | disposition home or self-care (01) ==
LOC: HO.MAMMO 12:36
PROVIDERS: PCP Physician Assistant Medical; Visit Provider Physician Assistant Medical
DX: M81.0 Age-related osteoporosis without current pathological fracture (principal)
CPT/HCPCS: 77080

== ENCOUNTER → 2024-05-25 13:00 | Outpatient (BNV) | payer MEDICARE, OTHER, SELFPAY | PROVIDERS: PCP Physician Assistant Medical; Visit Provider Radiology Diagnostic Radiology | DX: E28.39 Other primary ovarian failure (principal) | CPT/HCPCS: 77080 ==

== ENCOUNTER 2024-07-01 10:11 | Outpatient (AMB) | payer MEDICARE, OTHER, SELFPAY ==
--- NOTE | 2024-07-01 10:13 | MHC.PC.OV ---
Vital Signs 07/01/24 10:14 Height 5 ft 3 in Weight 178 lb 8 oz BMI 31.6 BP 132/62 Blood Pressure Location Lt brachial Position Sitting Pulse 86 Pulse Source Pulse Oximeter Temp 97.1 F Temp Source Temporal Artery Scan Pulse Oximetry (%) 97 Oxygen Delivery Method Room Air Intake Visit Reasons: Med review Intake Note: Patient is here to follow up on Med review. Diesel Inspector Required: No Ada Accommodation Consultant: Not Required per policy Accompanied by: Self / Same As Patient Allergies SEASONAL ALLERGIES Allergy (Unknown, Uncoded 07/01/24 10:14) SNEEZING,ITCHY NOSE Tobacco use date assessed: 07/01/24 Fall risk assessment: No Falls in past year Last assessed Fall Risk: 07/01/24 Dental Screening Dental Screen Date: 04/29/24 [facility] Medical History Hiatal hernia CVA (cerebral vascular accident) UTI (urinary tract infection) Bunion Hammer toe Hard of hearing Nicotine dependence, cigarettes, uncomplicated Iron deficiency anemia COPD (chronic obstructive pulmonary disease) Hypertension Hyperlipidemia Obesity Type 2 diabetes mellitus with obesity Overactive bladder Urinary incontinence Surgical History Hx of breast biopsy H/O colonoscopy (~05/24/24) History of section History of hysterectomy Family History Father No problems noted. Mother No problems noted. Social History Housing: House Are you a primary rn long term care to a significant other at home: No Do you presently have visiting nurse or other home services: No Alcohol intake: current Alcohol intake frequency: a few times a week Patient Tobacco Use Status: Current everyday Tobacco user Tobacco use type: Cigarette Cigarette Packs Per Day: 1 Cigarettes Per Day: 15 Years Smoked: 50 e-Cigarette/Vaping Use: Never Used Second Hand Smoke Exposure: Yes service: No Current occupational status: retired Cognitive needs: No Hearing needs: No Vision needs: Yes (glasses) Questionnaire PHQ-9 Over the last 2 weeks, how often have you been bothered by any of the following problems? 1. Little interest or pleasure in doing things: not at all 2. Feeling down, depressed, or hopeless: not at all 3. Trouble falling or staying asleep, or sleeping too much: not at all 4. Feeling tired or having little energy: several days 5. Poor appetite or overeating: not at all 6. Feeling bad about yourself - or that you are a failure or have let yourself or your family down: not at all 7. Trouble concentrating on things, such as reading the newspaper or watching television: not at all 8. Moving or speaking so slowly that other people could have noticed. Or the opposite - being so fidgety or restless that you have been moving around a lot more than usual: not at all 9. Thoughts that you would be better off or of hurting yourself in some way: not at all Total score: 1 Depression Screening Interpretation: Positive Depression Screening Done: Yes Source: Developed by Drs. Levon Rodriguez, Magdalene Morrison, Ranjan Marcano and colleagues, with an educational jigna from [employer]. Thrive Questionnaire Date Thrive assessed: 04/29/24 I am a: Patient What is your living situation today?: I have a steady place to live Within the past 12 months, did the food you bought not last and you didn't have the money to get more?: I choose not to answer this question Within the past 12 months, did you worry whether your food would run out before you got money to buy more?: I choose not to answer this question Do you have trouble paying for medicines?: I choose not to answer this question Do you have trouble getting transportation to medical appointments?: I choose not to answer this question Do you have trouble paying your heating and electricity bill?: I choose not to answer this question Do you have trouble taking care of your child, family member or friend?: I choose not to answer this question Do you have trouble with day-to-day activities such as bathing, preparing meals, shopping, managing finances, etc.?: I choose not to answer this question Are you currently unemployed and looking for a job?: I choose not to answer this question Are you interested in more education?: I choose not to answer this question Please select the resources that you would like help with: None Currently or been in a relationship where the following occur: I choose not to answer THRIVE Score: 0 AUDIT C Alcohol Use Questionnaire (AUDIT-C) 1. How often do you have a drink containing alcohol?: Monthly or less Total Score: 1 KAYLIE-7 AMB Questionnaire KAYLIE-7 Date KAYLIE - 7 assessed: 07/01/24 Feeling nervous, anxious, or on edge: 0 = Not at all Not being able to stop or control worryin = Not at all Worrying too much about different things: 0 = Not at all Trouble relaxin = Not at all Being so restless that it is hard to sit still: 0 = Not at all Becoming easily annoyed or irritable: 0 = Not at all Feeling afraid as if something awful might happen: 0 = Not at all Total KAYLIE-7 score (0-4 normal; 5-9 mild; 10-14 moderate; 15-21 severe): 0 Source: Developed by Drs. Levon Rodriguez, Magdalene Morrison, Ranjan Marcano and colleagues, with an educational jigna from [employer]. Physical exam (Primary Care) Vital Signs: Last Vital Signs Temp 97.1 F 07/01/24 10:14 Pulse 86 07/01/24 10:14 BP 132/62 07/01/24 10:14 Pulse Ox 97 07/01/24 10:14 Oxygen Delivery Method Room Air 07/01/24 10:14 BMI result Body Mass Index 31.6 Tobacco/Smoking Status: Tobacco use Status Tobacco use date assessed 07/01/24 07/01/24 10:20 Patient Tobacco Use Status Current everyday Tobacco 07/01/24 10:20 Tobacco use type Cigarette 07/01/24 10:20 e-Cigarette/Vaping Use Never Used 07/01/24 10:20 PHQ-9: PHQ-9 Score PHQ-9: Total score 1 07/01/24 10:20 Depression Screening Interpretation: Positive Thrive Assessment: Date of Thrive Assessment Date Thrive assessed 04/29/24 07/01/24 10:20 Currently or been in a relationship where the following occur: I choose not to answer Coding Level of Care Code Est Pt Level 4 (91050) Complex EM visit Add On G2211 Diagnoses Shoulder pain M25.519 Breast cancer C50.919 Assessment & Plan Assessment & Plan (1) Shoulder pain: Comment: 20 min reviewing chart evaluating patient and documenting Code(s): M25.519 - Pain in unspecified shoulder Category: Medical Plan: Reduced her Tramadol dosage to once a day. Patient will let me know if it suffices. (2) Breast cancer: Code(s): C50.919 - Malignant neoplasm of unspecified site of unspecified female breast Plan: Reports she had a lumpectomy and radiation. Will get the last notes from [facility]. Plan History of Present Illness The patient is a 69-year-old female presenting for a medication review and adjustment concerning her long-term Tramadol use. Initially prescribed for sciatica, her current use is aligned with behalf-controlled reduction due to waning pain in the sciatic distribution but ongoing shoulder discomfort. The patient is cautious about using medication due to known risks associated with chronic opioid treatment and is actively seeking to lower her daily intake from the self-administered two tablets to one tablet, under medical supervision, while maintaining her quality of life. Relevant medical history includes previous breast cancer, managed with lumpectomy and radiation therapy, with ongoing surveillance not performed as previously scheduled. A separate issue involves appendiceal rupture earlier this year, which was addressed with drainage procedures but not surgical removal, with the patient remaining asymptomatic since. Social History - Retired, previously employed in a capacity requiring physical activity. - Alludes to independent medication management and adherence to professional healthcare guidelines. - Engages with digital communication methods, primarily medical portals, indicating some proficiency with technology for health management. - Experienced transition from exclusively seeing doctors to involving nurse practitioners in healthcare, with expressed adjustments to care approach preference. Review of Systems - Musculoskeletal: Reports shoulder pain. - Neurological: Reports history of sciatica. - Gastrointestinal: Denies current gastrointestinal symptoms post-appendiceal rupture management. - Integumentary/Breast: Reports history of breast cancer, denies current breast symptoms. Physical Exam General: Cooperative and healthy appearing Nutritional Appearance: Well nourished Orientation/consciousness: Patient oriented x3 Limitations: No limitations Head: Normal to inspection General: Appearance normal, both eyes and all related structures Neck: Normal visual inspection Chest: Normal palpation of entire chest wall Respiratory: Normal respiratory effort Neurology: Patient oriented x3 Results - Breast Cancer: Status post lumpectomy and radiation therapy. - Appendiceal Rupture: Managed with drainage, no surgery required. Plan 1. Sciatica - Monitor Tramadol usage and reduce dosage to observe effect. 2. Osteoarthritis Of The Shoulder - Trial Tramadol reduction with attention to symptom management. 3. Long-Term Use Of Tramadol - Reduce to one day and encourage feedback on effectiveness or issues. 4. History Of Breast Cancer - Advise rescheduling surgical consultation for follow-up. 5. History Of Appendiceal Rupture - Maintain current status under observation, no immediate actions defined. Discussion Notes During the consultation, we reviewed the patient's extended Tramodol use for managing sciatica and newly described shoulder pain. I advised a gradual reduction of Tramadol to a single daily dose to mitigate long-term risks and facilitated a two-way communication strategy encouraging the patient to provide feedback via the patient portal regarding symptom management outcomes. We also discussed her history of breast cancer, emphasizing the importance of rescheduling missed follow-up with her oncologist or surgeon, and mutually agreed upon the outlined plan to taper medication. The patient's appendiceal episode was recapped. I reassured her of the functioning primary care infrastructure and our commitment to support her multilateral healthcare needs. Patient Instructions - Take Tramadol once daily and monitor how you feel with this reduced dose. - If any issues arise or you wish to discuss, use the patient portal to reach me. - Reschedule your appointment with the surgeon for breast cancer follow-up. - Continue to observe for any changes in your shoulder pain and report via the portal. - Seek medical attention if you experience severe pain, new symptoms, or any concerns needing immediate attention. Medications: Refilled tramadol 50 mg PO Q6H PRN 60 tabs 3RF pain
[2024-07-01 10:14] VITALS: BP 132/62; PULSE 86; TEMP 36.2; O2SAT 97; BMI 31.6
--- OUTSIDE RECORDS SUMMARY | 2024-07-01 11:19 | XMS_ITS ---
Author Organization [facility] Address [address] [place] [address] Care Team Providers Care Director Of Exhibit Development Name Role Phone Donovan Medrano MD Primary Care Provider Levon Milligan Unavailable [phone] REASON FOR VISIT colon screening Encounters Encounter Location Date Provider Diagnosis [facility] [address] [place] [phone] 12/05/2023 Levon Garcia Plan Of Treatment No Information Progress Notes * July DDOB:[birth year] (69 yo F)Acc No.[id number]:12/05/2023 Progress Notes Patient:?July Provider:?Levon Garcia MD :1955???Age:68 Y???Sex:Female D ate:12/05/2023 Address:[address] [place] [address] [address] , [facility] Pcp:Donovan Medrano MD Subjective: * Chief Complaints: [...] MD Date:? 024 Generated for Cynthia zavala/Mckinley/eTransmitting on:?07/01/2024 11:19 AM EDT
--- OUTSIDE RECORDS SUMMARY | 2024-07-01 11:19 | XMS_ITS ---
Author Organization [facility] Address [address] [place] [phone] Care Team Providers Care Nutritional Services Host Name Role Phone Donovan Medrano MD Primary Care Provider Levon Milligan Unavailable [phone] Allergies No Known Allergies REASON FOR VISIT [...] W/U Status Risk Notes Problem History of polyp of colon (situation) (621102906) History of colon polyps (Z86.0100) Active confirmed Problem Colon cancer screening (256813787) Colon cancer screening (Z12.11) Active confirmed Vital Signs Blood pressure systolic 00 mm Hg 02/10/20 24 Blood pressure diastolic 00 mm Hg 024 Height 5 ft 3 in in 02/10/2024 Weight 174 lbs 02/10/2024 BMI 30.82 kg/m2 02/10/2024 Encounters Encounter Location Date Provider Diagnosis [facility] [address] [place] [address] 02/10/2024 Levon Garica Iron deficiency anemia D50.9 ; History of [...] that she is recovering nicely from 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 Guzmán at [facility]. Fortunately, this turned out to be a [...] ovary with surgery by Dr. Guzmán at TIE IN MACHINE OPERATOR oncology at [facility]-she had removal of the left ovary and [...] year??Never (0 point),?Points?4,?Interpretation?Positive.?Miscellaneous:?Marital status: . 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 Guzmán at [facility]. Fortunately, this turned out to be a [...]
--- OUTSIDE RECORDS SUMMARY | 2024-07-01 11:19 | XMS_ITS | Patient Health Record ---
Author Organization [facility] Address [address] [place] [address] Care Team Providers Care Highway Maintenance Worker Name Role Phone Marcela KAUFMAN, Donovan Primary Care Provider Levon Milligan Unavailable [phone] Allergies No Known Allergies Results Component Value Reference Range Notes Complete Blood Count Auto Di ff Reviewed date:05/23/2024 11:25:11 PM Interpretation: Performing Lab:[facility], [address] [place] [phone] Notes/Report: White Blood Count 5.9 4.8-10.8 X10*3/uL [...] Hormone Reviewed date:04/27/2024 12:42:08 PM Interpretation: Performing Lab:[facility], [address] [place] [phone] Notes/Report: Thyroid Stimulating Hormone 1.05 0.32-4.0 uIU/mL TSH 3rd Generation ([facility]) Hemoglobin A1c Reviewed date:04/27/2024 12:42:21 PM Interpretation: Performing Lab:[facility], [address] [place] [phone] Notes/Report: Hemoglobin A1c % 6.4 <6.0 % [...] average glucose, using the formula of the S3O-Vmmcoae Average Glucose study (ADAG), Diabetes Care, Vol.31,#8, Sep. 2007 Glucose, Whole Blood Reviewed date:05/25/2024 12:17:03 AM Interpretation: Performing Lab:[facility], [address] [place] [phone] Notes/Report: Glucose, Whole Blood 141 60-115 mg/dL METER # : [id number] Pathology (Not yet reviewed by provider) Interpretation: Performing Lab:[facility], [address] [place] [phone] Notes/Report: -- ---- Name: LeticiaJuly Age/Sex: 69/F : 1955 [id number] [id number] Attend Dr: Levon Garcia MD Re05/24/24 Status : [facility] Location: [facility] Disch: -- ---- SPEC : [id number] RECD : 05/24/24-115 STATUS: ROCK HAYES NUM: [id number] URIEL: 05/24/24-[address] [facility] [address]: Levon Garcia MD ENTERED: 05/24/24- 05 [...] JUAN FRANCISCO Copies To: Osiris Ascencio PA-C [facility] Primary Care,[address] [place] [address] Levon Garcia MD [facility] [address] [place] [address] CONTINUED ON NEXT PAGE -- ---- Name: Amanda Chaparro Brea Age/Sex: 69/F : 1955 Unit#: [id number] Attend Dr: Levon Garcia MD Re05/24/24 Status : [facility] Location: [facility] Disch: -- ---- SPEC : [id number] RECD : 05/24/24-1150 STATUS: ROCK HAYES NUM: [id number] URIEL: 05/24/24-[address] [facility] [address]: Levon Garcia MD ENTERED: 05/24/24-12 05 SP TYPE: Surgical OTHR DR: Osiris Ascencio PA-C ORDERED: RENUKA Stain/6, Gross Micro L4/2 Copies To: (Continued) [phone] -- ---- Signed (signature on file) Aaliyah [...] Status Risk Notes Problem Colon cancer screening (385137259) Colon cancer screening (Z12.11) Active confirmed Problem Iron deficiency anemia (96693210) Iron deficiency anemia (D50.9) Active confirmed Problem Flatulence, eructation and gas pain (979020496) Abdominal distension (R14.0) Active confirmed Problem History of polyp of colon (situation) (894429125) History of colon polyps (Z86.0100) Active confirmed Vital Signs Blood pressure diastolic 00 mm Hg 02/10/2024 Height 5 ft 3 in in 02/10/2024 Blood pressure systolic 00 mm Hg 02/10/2024 Weight 174 lbs 02/10/2024 BMI 30.82 kg/m2 02/10/2024 Encounters Encounter Location Date Provider Diagnosis [facility] Outpatient [address] [place] [phone] 05/24/2024 Levon Garcia Colon cancer screening Z12.11 ; Personal history of colonic polyps Z86.0100 ; Colon polyps K63.5 and Other hemorrhoids K64.8 [facility] [address] [place] [phone] 09/04/2023 Levon Garcia Iron deficiency anemia D50.9 and Abdominal distension R14.0 [facility] [address] [place] [phone] 02/10/2024 Levon Garcia Iron deficiency anemia D50.9 ; History of colon polyps Z86.0100 and Colon cancer screening Z12.11 [facility] [address] [place] [phone] 08/14/2023 Levon Garcia [facility] [address] [place] [phone] 09/04/2023 Levon Garcia Assessments Encounter Date Diagnosis (ICD Code) Assessment Notes Treatment Notes Treatment Clinical Notes Section Notes 05/24/2024 Colon cancer screening (ICD-10 - Z12.11) 05/24/2024 Personal history of colonic polyps (ICD-10 - Z86.0100) 09/04/2023 Iron deficiency anemia (ICD-10 - D50.9) [...] will have my office try to call [facility] Radiology and see if they can move [...] will have my office try to call [facility] Radiology and see if they can move [...] that she is recovering 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 05/24/2024 Colon polyps (ICD-10 - K63.5) 02/10/2024 Colon cancer screening (ICD-10 - Z12.11) Overall, Amanda appears well. She is not having any new or worrisome GI complaints. She does not appear to be anemic on exam and is not describing any particular symptoms of anemia at this time. 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 05/24/2024 Other hemorrhoids (ICD-10 - K64.8) Plan Of Treatment Pending Test Test Name [...] Date MEDICARE OF [place] [address] [place] [address] [phone] [id number] [facility] July Self - patient is the insured [employer] (e-S[employer]) [address] [place] [address] [phone] [id number] [facility] AMANDA Self - patient is the insured Medical (General) History Medical History History ICD Code 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 Alegre did the most recent exam sometime before 2019 Thinks she had an upper endo many years ago Denies UT,renal disease [place] hiatal hernia seen on CT scan of the chest in April of 2023.... 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 Guzmán at FISH FARM LABORER oncology at [facility]-she had removal of the left ovary and left fallopian tube--there was no malignancy Breast biopsy on 09/03/2023 - -she describes the diagnosis of breast cancer with DCIS -she describes 2 subsequent surgeries later in 2023 and then followed by radiation treatments through January of 2024
--- OUTSIDE RECORDS SUMMARY | 2024-07-01 11:20 | XMS_ITS ---
Author Organization [facility] Address [address] [place] [phone] Care Team Providers Care Manager Chemical Name Role Phone Donovan Medrano MD Primary Care Provider Levon Milligan Unavailable [phone] REASON FOR VISIT screening,hx polyps, fe def anemia Encounters Encounter Location Date Provider Diagnosis [facility] Outpatient [address] [place], [place] [phone] 05/24/2024 Levon Garcia Colon cancer scree keli [...] * July DDOB:[birth year] (69 yo F)Acc No.[id number]:05/24/2024 COLON WITH MAC Patient:?July Provider:?Levon Garcia MD :1955???Age:69 Y???Sex:Female D ate:05/24/2024 Address:[address] [place] [address] [address] , [place], [place] Pcp:Donovan Medrano MD Subjective: * Chief Complaints: * ???1. Screening,hx polyps, f e def anemia. * Medical History:? Objective: * Vitals:? Assessment: * Assessment: 1.?Colon cancer screening - Z12.11 (Primary)???2.?Personal history of colonic polyps - Z86.0100???3.?Colon polyps - K63.5???4.?Other hemorrhoids - K64.8??? Plan: * Treatment: * Procedure Codes:?67840 LESIO N REMOVAL COLONOSCOPY, Modifiers: PT , 0529F INTRVL 3+YRS PTS CLNSCP DOCD, 0528F RCMND FLW-UP 10 YRS DOCD * * The named appointment provid er may or may not be the originator of this progress note, and it is not deemed complete until electronically signed by the appointment provider. Sign off status: Pending * Provider:?Levon Garcia MD Date:? 025 Generated for Cynthia zavala/Mckinley/Camachoitting on:?07/01/2024 11:19 AM EDT
--- OUTSIDE RECORDS SUMMARY | 2024-07-01 11:20 | XMS_ITS | Patient Health Record ---
Author Organization [facility] Address [address] [place] [address] Care Team Providers Care Test Pilot Name Role Phone Donovan Medrano MD Primary Care Provider Unavaila tatum JiménezTova Unavailable [phone] Reason For Referral No Information Medications Medication [...] behavior of connective and other soft tissues (13012237) S.T. Mass (unspec.) (239.2) Active confirmed Problem Pain in limb (73155171) Pain in Limb (729.5) Active confirmed Problem Hallux valgus (918097028) Hallux Valgus (735.0) Active confirmed Problem Hammer toe (503481638) Hammer toe (735.4) Active confirmed Problem Metatarsalgia (83610909) Metatarsalgia (726.70) Active confirmed Problem Foot ulcer (24728993) Ulcer of Other Part of Foot (707.15) Active confirmed Problem Abscess /Cellulitis (682.7) Active confirmed Plan Of Treatment Pending Test Test Name Order Date [id number]-Iouh Destruction, -10/15/2013 31756-Bxcs Destruction, -11/26/2013 40736- Debride <25 sq cm 04/13/2013 89005- Debride <25 sq cm 05/18/2013 23304- Debride <25 sq cm 06/22/2013 17194- Debride <25 sq cm 07/22/2013 50719 I&D ABSCESS- SIMPLE,SINGLE 014 11801 I&D ABSCESS- SIMPLE,SINGLE 014 57835 I&D ABSCESS- SIMPLE,SINGLE 014 64067 I&D ABSCESS- SIMPLE,SINGLE 014 58484, [id number]/INJECT, JOINT/BURSA 0 06/22/2013 Insurance Providers Payer Name Payer Address Payer Phone Subscriber Number Group Number Insured Name Patient Relationship to Insured Coverage Start Date Coverage End Date [facility] ([facility]) [address] [place] [address] [id number] July Self - patient is the insured Medical (General) History Medical History History ICD Code Headaches High blood pressure Back,Hip,and Knee pain Psoriasis/eczema Chicken pox Surgical History Surgery Date(Month/Year) hysterectomy section
== END 2024-07-01 11:01 | disposition home or self-care (01) ==
LOC: HO.HMCH 10:12
PROVIDERS: PCP Physician Assistant Medical; Visit Provider Internal Medicine
DX: M25.519 Pain in unspecified shoulder (principal); C50.919 Malignant neoplasm of unspecified site of unspecified female breast

== ENCOUNTER → 2024-07-01 10:11 | Outpatient (BNVA) | payer MEDICARE, OTHER, SELFPAY | PROVIDERS: PCP Physician Assistant Medical; Visit Provider Internal Medicine | DX: C50.919 Malignant neoplasm of unspecified site of unspecified female breast (principal) | CPT/HCPCS: 99212 ==

== ENCOUNTER 2024-10-18 09:46 | Outpatient (REF) | payer MEDICARE, OTHER, SELFPAY ==
--- OUTSIDE RECORDS SUMMARY | 2023-12-05 10:40 | XMS_ITS ---
Author Organization [facility] Address [address] [place] [phone] Care Team Providers Care Planning Feeder Name Role Phone Donovan Medrano MD Primary Care Provider Levon Milligan [phone] REASON FOR VISIT colon screening Encounters Encounter Location Date Provider Diagnosis [facility] [address] [place] [phone] 12/05/2023 Levon Garcia Plan Of Treatment No Information Progress Notes * July DDOB:[birth year] (69 yo F)Acc No.[id number]:12/05/2023 Progress Notes Patient: Cande ROJASJuly Provider: Harsh Garcia MD :1955 A ge:68 Y S ex:Female Date:12/05/2023 Address:[address] [place] [address] [address] , [facility] Pcp:Donovan Medrano MD Subjective: * Chief Complaints: [...] 1 Generated for Cynthia zavala/Mckinley/eTransmitting on: 0 10/18/2024 10:38 AM EDT
--- OUTSIDE RECORDS SUMMARY | 2024-10-18 10:38 | XMS_ITS ---
Author Name Ervin Dove Address Unknown Organization [facility] Care Team Providers Care Flight Simulator Teacher Name Role Phone Unavailable Primary Care Physician Unavailab le History Of Present Illness This is a 69 year old female who is a new patient who is being seen for a chief complaint of a skinlesion.Location: left antihelixQuality: tender and crustyDuration: 1 monthModifying Factors: nothing makes it better or worseTreatment Status: has not been treatedReason for Visit: evaluationPertinent Negatives: no history of previous skin cancer, no family history of melanoma, and no family history of non-melanoma skin cancerAdditional History: Patient has spot of concern on left ear, sore, crusty x1 month. Was seen at urgent care and recommended to see methods specialist suspicious for skin cancer. Medications Medication Generic Name RxNorm Strength Strength Unit Route Dose Dose Form Frequency Date Started Date Ended Status Indication Sig Tretinoin tretinoi n NULL topica l 08/15/19 18 suspend ed albuterol sulfate albutero l sulfate 90 mcg/actua tion Inhala tion 1 HFA Aeros ol Inhal er PRN active Wixela Inhub 4618736 250-50 mcg/dose Inhala tion 1 Blist er, With Inhal ation Devic e QD active Adult Low Dose Aspirin aspirin 81 mg Oral 1 table t, delay ed relea se (ente lynette echavarria d) QD active atorvastati n 367714 80 mg Oral 1 table t QD active fluoxetine 186314 20 mg Oral 1 capsu le QD active levofloxaci n 729349 750 mg Oral 1 table t QD suspend ed lisinopril 664004 10 mg Oral 1 table t QD active lorazepam 996667 1 mg Oral 1 table t PRN active metformin metformi n 534227 500 mg Oral 1 table t BID active tramadol 762602 50 mg Oral 1 table t QHS active nicotine 643292 14 mg/24 hr Transd ermal 1 patch , trans derma l 24 hours QD active Diprolene NULL 08/15/19 18 suspend ed Problems Problem Code Type Status Date of Diagnosis Date of Resolution 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) 44644824(S NOMED) Diagnosis active 10/15/2024 Seborrheic keratosis (disorder) 645827968( SNOMED) Diagnosis active 10/15/2024 Needs influenza immunization (finding) 312112982( SNOMED) Diagnosis active 08/14/2017 Personal history of other drug therapy Z92.29(ICD -10) Diagnosis active 08/14/2017 Psoriasis vulgaris (disorder) 828447230( SNOMED) Diagnosis active 08/14/2017 Asthma (disorder) 450086204( SNOMED) Problem active Cerebrovascular accident (disorder) 110719252( SNOMED) Problem active Diabetes mellitus (disorder) 59337281(S NOMED) Problem active Increased blood pressure (finding) 61613331(S NOMED) Problem active Hypercholesterolemia (disorder) 08760444(S NOMED) Problem active History of clinical finding in subject (situation) 402642282( SNOMED) Problem active Acne (disorder) 87239139(S NOMED) Problem active History of hay fever (situation) 541507508( SNOMED) Problem active History of skin disorder (situation) 602960185( SNOMED) Problem active Results No data Encounters Service provided at [facility], [address] [place] [address], [address], [place], [place] [id number]. Office phonenumber is [phone]. Office fax number is [phone]. 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) [facility] 10/15/2024 18:15:00 [facility] [id number] Reason For Referral No data Procedures Procedure Date Documentation of current medications (pr ocedure) 10/15/2024 12:00 am [facility] Smoking cessation education (procedure) 10/15/2024 12:00 am [facility] Shave biopsy (procedure) 10/15/2024 12:0 0 am [facility] Documentation of past medical history (p rocedure) Documentation of past medica l history (procedure) Right Breast surgery (excision) Abdominal surgery for possible ovary tumor Partial hysterectomyHistory of appendix removed (it burst, not through surgery) Review Of Systems Provider reviewed on Oct 15, 2024.A complete review of systems was performed and was notable for problems with bleeding, cough, shortness of breath, and wheezing.No Problems With Healing, No ProblemsWith Scarring (hypertrophic Or Keloid), No Immunosuppression, No Hay Fever, No Chest Pain, No FeverOr Chills, No Night Sweats, No Unintentional Weight Loss, No Thyroid Problems, No Sore Throat, No Blurry Vision, No Abdominal Pain, No Bloody Stool, No Bloody Urine, No Joint Aches, No Muscle Weakness, No Neck Stiffness, No Headaches, No Seizures, No Anxiety, And No Depression. Assessment 1.Neoplasm of Uncertain BehaviorBiopsy by Shave Method: left antihelix.2.MIPSMIPS Quality3.Seborrheic KeratosisCounselingReassuranceEducational Resources Provided Plan of Care Future visit PRN - Follow up PRN - (once testing is complete) Instructions * I counseled the patient regarding the following:Skin Care: Seborrheic Keratoses are benign. No treatment is necessary. Manage appearance and skin discomfort by keeping the skin hydrated (gentle cleansers and emollients/moisturizers). SPF protection, 30+ or higher. Avoid picking at the lesions; doingso will cause localized inflammation. If lesions become irritated, inflamed, or painful - return tooffice to discuss tx options such as LN2 vs shave biopsy.Expectations: Seborrheic Keratoses are benign warty growths. Patients get more of them as they age. Social History Code Activity Start Date End Date [id number] ([employer]) Current every day smoker Sex female Sexual orientation Unspecified Gender identity Unspecified Vital Signs No data
--- OUTSIDE RECORDS SUMMARY | 2024-10-18 10:38 | XMS_ITS | Patient Health Record ---
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 . . Pt out of work due to injection therapy; Duration: . A ctive ZyrTEC Allergy Activ e Simvastatin Active PROzac Active Work Note . . . Pt out of work due to injection therapy; Duration: . 06/22/2013 A ctive Social History Tobacco use other than smoking: Question Answer Notes Are you an other tobacco user? No Problems Problem Type SNOMED Code ICD Code Onset Dates Problem Status W/U Status Risk Notes Problem Neoplasm of uncertain behavior of connective and other soft tissues (63291839) S.T. Mass (unspec.) (239.2) Active confirmed Problem Pain in limb (81459115) Pain in Limb (729.5) Active confirmed Problem Hallux valgus (038793217) Hallux Valgus (735.0) Active confirmed Problem Hammer toe (036270654) Hammer toe (735.4) Active confirmed Problem Metatarsalgia (54270801) Metatarsalgia (726.70) Active confirmed Problem Foot ulcer (37144489) Ulcer of Other Part of Foot (707.15) Active confirmed Problem Abscess /Cellulitis (682.7) Active confirmed Plan Of Treatment Pending Test Test Name Order Date [id number]-Fabj Destruction, 1-10/15/201361271-Bggr Destruction, 1-14 11/26/2013 73773- Debride <25 sq cm 04/13/2013 27937- Debride <25 sq cm 05/18/2013 63639- Debride <25 sq cm 06/22/2013 25585- Debride <25 sq cm 07/22/2013 06222 I&D ABSCESS- SIMPLE,SINGLE 014 10133 I&D ABSCESS- SIMPLE,SINGLE 014 73693 I&D ABSCESS- SIMPLE,SINGLE 014 30144 I&D ABSCESS- SIMPLE,SINGLE 014 29965, [id number]/INJECT, JOINT/BURSA 0 06/22/2013 Insurance Providers Payer Name Payer Address Payer Phone Subscriber Number Group Number Insured Name Patient Relationship to Insured Coverage Start Date Coverage End Date [facility] ([facility]) [address] [place] [phone] [id number] July Self - patient is the insured Medical (General) History Medical History History ICD Code Headaches High blood pressure Back,Hip,and Knee pain Psoriasis/eczema Chicken pox Surgical History Surgery Date(Month/Year) hysterectomy section
[2024-10-18 11:01] LABS: Hematocrit 40.0 % (37.0-47.0); Hemoglobin 13.6 g/dl (12.0-16.0); Mean Corpuscular HGB Conc 34.0 g/dl (31.0-35.0); Mean Corpuscular Hemoglobin 33.5 pg (27.0-33.0); Mean Corpuscular Volume 98.5 fL (80.0-98.0); NRBC Abs Auto 0.000 X10*3/uL (0.0-0.012); NRBC Pct Auto 0.0 /100WBC (0.0-0.2); Platelet Count 233 X10*3/uL (160-400); Red Blood Count 4.06 X10*6/uL (4.20-5.50); White Blood Count 6.0 X10*3/uL (4.8-10.8)
[2024-10-18 11:07] LABS: Hemoglobin A1C 171.1108 umol/L; Total Hemoglobin (HGBA1C) 3587.7407 umol/L
[2024-10-18 11:22] LABS: Alanine Aminotransferase 30 U/L (0-31); Albumin Level 4.5 g/dL (3.5-5.0); Alkaline Phosphatase 106 U/L (39-117); Anion Gap 15 (12-20); Aspartate Amino Transferase 28 U/L (5-31); Blood Urea Nitrogen 9 mg/dL (9-16); Calcium 9.5 mg/dL (8.4-10.2); Carbon Dioxide 27 mmol/L (22-29); Chloride 100 mmol/L (96-108); Cholesterol 201 mg/dL (<200); Estimated Glomerular Filt Rate > 60; HDL Cholesterol 54 mg/dL (>40); Potassium 4.4 mmol/L (3.3-5.1); Sodium 138 mmol/L (135-145); Total Protein 6.9 g/dL (6.5-8.0); Triglycerides 187 mg/dL (<150)
[2024-10-18 11:37] LABS: Thyroid Stimulating Hormone 1.73 uIU/mL (0.32-4.0)
[2024-10-18 11:46] LABS: Appearance Urine Clear; Glucose Urine UA Negative (Negative); PH 8.0 (5.0-9.0); Specific Gravity - Urine <= 1.005 (1.005-1.025)
== END 2024-10-18 09:47 | disposition home or self-care (01) ==
LOC: HO.LAB 09:46
PROVIDERS: PCP Internal Medicine; Visit Provider Internal Medicine
DX: I10 Essential (primary) hypertension (principal); E78.5 Hyperlipidemia, unspecified; Z13.1 Encounter for screening for diabetes mellitus
CPT/HCPCS: 36415; 80048; 80061; 80076; 81003; 83036; 84443; 85027

== ENCOUNTER 2024-10-21 10:39 | Outpatient (AMB) | payer MEDICARE, OTHER, SELFPAY ==
--- OUTSIDE RECORDS SUMMARY | 2023-12-05 10:40 | XMS_ITS ---
Author Organization [facility] Address [address] [place] [phone] Care Team Providers Care Case Packer Name Role Phone Donovan Medrano MD Primary Care Provider Levon Milligan [phone] REASON FOR VISIT colon screening Encounters Encounter Location Date Provider Diagnosis [facility] [address] [place] [phone] 12/05/2023 Levon Garcia Plan Of Treatment No Information Progress Notes * July DDOB:[birth year] (69 yo F)Acc No.[id number]:12/05/2023 Progress Notes Patient: Cande ROJASJuly Provider: Harsh Garcia MD :1955 A ge:68 Y S ex:Female Date:12/05/2023 Address:[address] [place] [address] [address] , [facility] Pcp:Donovan Medrano MD Subjective: * Chief Complaints: * 1 . Colon screening. * Medical History: Objective: * Vitals: Assessment: Plan: * Treatment: * * The named appointment provid er may or may not be the originator of this progress note, and it is not deemed complete until electronically signed by the appointment provider. Sign off status: Pending * Provider: Harsh Garcia MD Date: 1 Generated for Cynthia zavala/Mckinley/eTransmitting on: 0 10/21/2024 12:04 PM EDT
--- OUTSIDE RECORDS SUMMARY | 2024-05-24 05:50 | XMS_ITS ---
Author Organization [facility] Address [address] [place] [address] Care Team Providers Care Navy Diver Name Role Phone Donovan Medrano MD Primary Care Provider Levon Milligan Unavailable [phone] REASON FOR VISIT screening,hx polyps, fe def anemia Encounters Encounter Location Date Provider Diagnosis [facility] [place] Outpatient [address] [place] [phone] 05/24/2024 Levon Garcia Colon cancer scree keli [...] * July DDOB:[birth year] (69 yo F)Acc No.[id number]:05/24/2024 COLON WITH MAC Patient: Cande IZQUIERDOJuly Provider: Harsh Garcia MD :1955 A ge:69 Y S ex:Female Date:05/24/2024 Address:[address] [place] [address] [address] , [place], [phone] Pcp:Donovan Medrano MD Subjective: * Chief Complaints: * 1 . Screening,hx polyps, fe def anemia. * Medical History: Objective: * Vitals: Assessment: * Assessment: 1. C olon cancer screening - Z12.11 (Primary) 2 . P ersonal history of colonic polyps - Z86.0100 3 . C olon polyps - K63.5 4 . O ther hemorrhoids - K64.8 Plan: * Treatment: * Procedure Codes: 4 5385 LESION REMOVAL COLONOSCOPY, Modifiers: PT , 0529F INTRVL 3+YRS PTS CLNSCP DOCD, 0528F RCMND FLW-UP 10 YRS DOCD * * The named appointment provid er may or may not be the originator of this progress note, and it is not deemed complete until electronically signed by the appointment provider. Sign off status: Pending * Provider: Harsh Garcia MD Date: 0 05/24/2024 Generated for Cynthia zavala/Mckinley/Camachoitting on: 0 10/21/2024 12:05 PM EDT
--- NOTE | 2024-10-21 10:42 | MHC.PC.OV ---
Vital Signs 10/21/24 10:43 Height 5 ft 3 in Weight 181 lb 4 oz BMI 32.1 BP 120/74 Blood Pressure Location Lt brachial Position Sitting Pulse 84 Pulse Source Pulse Oximeter Temp 96.9 F Temp Source Temporal Artery Scan Pulse Oximetry (%) 96 Oxygen Delivery Method Room Air Intake Visit Reasons: 3mth f/u Intake Note: Patient is here to follow up on DM, HLD, HTN, COPD. 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 Required: No Business Continuity Management Director: Not Required per policy Accompanied by: Self / Same As Patient Allergies SEASONAL ALLERGIES Allergy (Unknown, Uncoded 10/21/24 10:43) SNEEZING,ITCHY NOSE Tobacco use date assessed: 10/21/24 Fall risk assessment: No Falls in past year Last assessed Fall Risk: 10/21/24 Dental Screening Dental Screen Date: 04/29/24 [facility] Medical History Hiatal hernia CVA (cerebral vascular accident) UTI (urinary tract infection) Bunion Hammer toe Hard of hearing Nicotine dependence, cigarettes, uncomplicated Iron deficiency anemia COPD (chronic obstructive pulmonary disease) Hypertension Hyperlipidemia Obesity Type 2 diabetes mellitus with obesity Overactive bladder Urinary incontinence Surgical History (Updated 10/21/24 @ 10:49 by DARIUS High) History of surgical biopsy History of lumpectomy Hx of breast biopsy H/O colonoscopy (~05/24/24) History of section History of hysterectomy Family History Father No problems noted. Mother No problems noted. Social History Housing: House Are you a primary physician locums urgent care to a significant other at home: No Do you presently have visiting nurse or other home services: No Alcohol intake: current Alcohol intake frequency: a few times a week Patient Tobacco Use Status: Current everyday Tobacco user Tobacco use type: Cigarette Cigarette Packs Per Day: 1 Cigarettes Per Day: 20 Years Smoked: 50 e-Cigarette/Vaping Use: Never Used Second Hand Smoke Exposure: Yes service: No Current occupational status: retired Cognitive needs: No Hearing needs: No Vision needs: Yes (glasses) Questionnaire Thrive Questionnaire Date Thrive assessed: 04/29/24 I am a: Patient What is your living situation today?: I have a steady place to live Within the past 12 months, did the food you bought not last and you didn't have the money to get more?: I choose not to answer this question Within the past 12 months, did you worry whether your food would run out before you got money to buy more?: I choose not to answer this question Do you have trouble paying for medicines?: I choose not to answer this question Do you have trouble getting transportation to medical appointments?: I choose not to answer this question Do you have trouble paying your heating and electricity bill?: I choose not to answer this question Do you have trouble taking care of your child, family member or friend?: I choose not to answer this question Do you have trouble with day-to-day activities such as bathing, preparing meals, shopping, managing finances, etc.?: I choose not to answer this question Are you currently unemployed and looking for a job?: I choose not to answer this question Are you interested in more education?: I choose not to answer this question Please select the resources that you would like help with: None Currently or been in a relationship where the following occur: I choose not to answer THRIVE Score: 0 KAYLIE-7 AMB Questionnaire KAYLIE-7 Date KAYLIE - 7 assessed: 07/01/24 Source: Developed by Drs. Levon Rodriguez, Magdalene Morrison, Ranjan Marcano and colleagues, with an educational jigna from [employer]. Physical exam (Primary Care) Vital Signs: Last Vital Signs Temp 96.9 F 10/21/24 10:43 Pulse 84 10/21/24 10:43 BP 120/74 10/21/24 10:43 Pulse Ox 96 10/21/24 10:43 Oxygen Delivery Method Room Air 10/21/24 10:43 BMI result Body Mass Index 32.1 Tobacco/Smoking Status: Tobacco use Status Tobacco use date assessed 10/21/24 10/21/24 10:50 Patient Tobacco Use Status Current everyday Tobacco 10/21/24 10:50 Tobacco use type Cigarette 10/21/24 10:50 e-Cigarette/Vaping Use Never Used 10/21/24 10:50 Thrive Assessment: Date of Thrive Assessment Date Thrive assessed 04/29/24 10/21/24 10:50 Currently or been in a relationship where the following occur: I choose not to answer Coding Level of Care Code Est Pt Level 4 (48357) Complex EM visit Add On G2211 Diagnoses Hypertension I10 Assessment & Plan Assessment & Plan (1) Hypertension: Code(s): I10 - Essential (primary) hypertension Category: Medical Plan: History of Present Illness - The patient is a 69-year-old female presenting with concerns about blood test results and pain management. - Borderline diabetes mellitus: Recent blood work indicated an A1c level of 6.5%, suggesting borderline diabetes mellitus. - Hyperlipidemia: Cholesterol levels were noted to be slightly elevated. - Actinic keratosis: A lesion was removed by a educational recruiter and confirmed to be noncancerous. - History of lumpectomy for stage 0 breast cancer: The patient underwent a lumpectomy and radiation therapy for stage 0 breast cancer, with no current treatment required. - Pain management: The patient is taking tramadol once daily for pain management and prefers to continue this regimen. Social History - The patient is retired and spends her time assisting friends and family, including driving friends to the grocery store and helping her daughter, who is a nurse, with childcare responsibilities. - The patient is a dog lover and takes care of her daughter's dog. Review of Systems - Endocrine: Reports borderline elevated A1c level. - Dermatological: Reports removal of a noncancerous lesion. Physical Exam General: Cooperative and healthy appearing Nutritional Appearance: Well nourished Orientation/consciousness: Patient oriented x3 Limitations: No limitations Head: Normal to inspection General: Appearance normal, both eyes and all related structures Neck: Normal visual inspection Chest: Normal palpation of entire chest wall Respiratory: Normal respiratory effort Neurology: Patient oriented x3 Results - Labs: A1c level at 6.5%, indicating borderline diabetes mellitus. - Labs: Slightly elevated cholesterol levels. Plan 1. Borderline Diabetes Mellitus - Monitor A1c levels regularly to assess progression. - Discuss lifestyle modifications to manage blood glucose levels. 2. Hyperlipidemia - Monitor cholesterol levels and consider dietary changes to manage lipid levels. 3. Actinic Keratosis - Continue topical treatment as prescribed by the educational recruiter. 4. History Of Lumpectomy For Stage 0 Breast Cancer - No current treatment required; continue regular follow-up for breast health. 5. Pain Management - Continue tramadol at the current dosage of once daily for pain management. Discussion Notes I discussed the patient's blood test results, noting the borderline diabetes mellitus and hyperlipidemia. We reviewed the current pain management plan with tramadol and confirmed the noncancerous nature of the actinic keratosis lesion. Follow-up for breast health was also addressed. Patient Instructions - Continue taking tramadol once daily as prescribed. - Follow up with regular blood tests to monitor A1c and cholesterol levels. - Apply topical treatment for actinic keratosis as directed by the educational recruiter. - Maintain regular follow-up appointments for breast health monitoring.
[2024-10-21 10:43] VITALS: BP 120/74; PULSE 84; TEMP 36.1; O2SAT 96; BMI 32.1
--- OUTSIDE RECORDS SUMMARY | 2024-10-21 12:05 | XMS_ITS | Patient Health Record ---
Author Organization [facility] Address [address] [place] [address] Care Team Providers Care Executive Director Of Marketing Name Role Phone Donovan Medrano MD Primary Care Provider Unavaila tatum JiménezMaria Alejandrae Unavailable [phone] Reason For Referral No Information Medications Medication [...] behavior of connective and other soft tissues (58433363) S.T. Mass (unspec.) (239.2) Active confirmed Problem Pain in limb (84870457) Pain in Limb (729.5) Active confirmed Problem Hallux valgus (556491963) Hallux Valgus (735.0) Active confirmed Problem Hammer toe (156684072) Hammer toe (735.4) Active confirmed Problem Metatarsalgia (03439086) Metatarsalgia (726.70) Active confirmed Problem Foot ulcer (85144552) Ulcer of Other Part of Foot (707.15) Active confirmed Problem Abscess /Cellulitis (682.7) Active confirmed Plan Of Treatment Pending Test Test Name Order Date [id number]-Fubk Destruction, 1-10/15/201392038-Bqkv Destruction, 1-14 11/26/2013 80837- Debride <25 sq cm 04/13/2013 51783- Debride <25 sq cm 05/18/2013 77618- Debride <25 sq cm 06/22/2013 83073- Debride <25 sq cm 07/22/2013 01389 I&D ABSCESS- SIMPLE,SINGLE 014 22314 I&D ABSCESS- SIMPLE,SINGLE 014 85259 I&D ABSCESS- SIMPLE,SINGLE 014 98040 I&D ABSCESS- SIMPLE,SINGLE 014 47045, [id number]-OWCUE/INJECT, JOINT/BURSA 0 06/22/2013 Insurance Providers Payer Name Payer Address Payer Phone Subscriber Number Group Number Insured Name Patient Relationship to Insured Coverage Start Date Coverage End Date [facility] ([facility] [address] [place] [phone] [id number] July Self - patient is the insured Medical (General) History Medical History History ICD Code Headaches High blood pressure Back,Hip,and Knee pain Psoriasis/eczema Chicken pox Surgical History Surgery Date(Month/Year) hysterectomy section
--- OUTSIDE RECORDS SUMMARY | 2024-10-21 12:05 | XMS_ITS | Patient Health Record ---
Author Organization [facility] Address [address] [place] [address] Care Team Providers Care Special Events Driver Name Role Phone Marcela KAUFMAN, Donovan Primary Care Provider Levon Milligan Unavailable [phone] Allergies No Known Allergies Results Component Value Reference Range Notes Complete Blood Count Auto Di ff Reviewed date:05/23/2024 11:25:11 PM Interpretation: Performing Lab:[facility], [address] [place] [phone] Notes/Report: White Blood Count 5.9 4.8-10.8 X10*3/uL [...] Hormone Reviewed date:04/27/2024 12:42:08 PM Interpretation: Performing Lab:[facility], [address] [place] [phone] Notes/Report: Thyroid Stimulating Hormone 1.05 0.32-4.0 uIU/ mL TSH 3rd Generation ([facility]) Hemoglobin A1c Reviewed date:04/27/2024 12:42:21 PM Interpretation: Performing Lab:[facility], [address] [place] [phone] Notes/Report: Hemoglobin A1c % 6.4 <6.0 % [...] average glucose, using the formula of the W7D-Wvdtnof Average Glucose study (ADAG), Diabetes Care, Vol.31,#8, Sep. 2007 Glucose, Whole Blood Reviewed date:05/25/2024 12:17:03 AM Interpretation: Performing Lab:[facility], [address] [place] [phone] Notes/Report: Glucose, Whole Blood 141 60-115 mg/dL METER # : [id number] Pathology (Not yet reviewed by provider) Interpretation: Performing Lab:[facility], [address] [place] [phone] Notes/Report: Reason For Referral No Information Medications Medication [...] Status Risk Notes Problem Colon cancer screening (538920130) Colon cancer screening (Z12.11) Active confirmed Problem Iron deficiency anemia (79557421) Iron deficiency anemia (D50.9) Active confirmed Problem Flatulence, eructation and gas pain (010229244) Abdominal distension (R14.0) Active confirmed Problem History of colon polyps (Z86.0100) Active confirmed Vital Signs Blood pressure diastolic 00 mm Hg 02/10/2024 Height 5 ft 3 in in 02/10/2024 Blood pressure systolic 00 mm Hg 02/10/2024 Weight 174 lbs 02/10/2024 BMI 30.82 kg/m2 02/10/2024 Encounters Encounter Location Date Provider Diagnosis [facility] Outpatient [address], [place] [id number] 05/24/2024 Levon Garcia Colon cancer screening Z12.11 ; Personal history of colonic polyps Z86.0100 ; Colon polyps K63.5 and Other hemorrhoids K64.8 [facility] [address] [place] [address] 02/10/2024 Levon Garcia Iron deficiency anemia D50.9 ; History of colon polyps Z86.0100 and Colon cancer screening Z12.11 Assessments Encounter Date Diagnosis (ICD Code) Assessment Notes Treatment Notes Treatment Clinical Notes Section Notes 05/24/2024 Colon cancer screening (ICD-10 - Z12.11) 05/24/2024 Personal history of colonic polyps (ICD-10 - Z86.0100) 02/10/2024 Iron deficiency anemia (ICD-10 - D50.9) [...] that she is recovering nicely from her P[facility]ING GLU[facility] surgery over the summer and her ongoing [...] that she is recovering nicely from her [facility] surgery over the summer and her ongoing [...] that she is recovering nicely from her [facility] surgery over the summer and her ongoing [...] Date MEDICARE OF [place] [address] [place] [address] [phone] [id number] [facility] AMANDA Self - patient is the insured [employer] ([employer]) [address] [place] [address] [phone] [id number] [facility] AMANDA Self - patient is the insured Medical (General) History Medical History History ICD Code 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 Alegre did the most recent exam sometime before 2019 Thinks she had an upper endo many years ago Denies [place],renal disease [place] hiatal hernia seen on CT scan of the chest in April of 2023.... 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 Guzmán at [facility]-she had removal of the left ovary and left fallopian tube--there was no malignancy Breast biopsy on 09/03/2023 - -she describes the diagnosis of breast cancer with DCIS -she describes 2 subsequent surgeries later in 2023 and then followed by radiation treatments through January of 2024
== END 2024-10-21 11:22 | disposition home or self-care (01) ==
LOC: HO.HMCH 10:40
PROVIDERS: PCP Internal Medicine; Visit Provider Internal Medicine
DX: I10 Essential (primary) hypertension (principal)

== ENCOUNTER → 2024-10-21 10:39 | Outpatient (BNVA) | payer MEDICARE, OTHER, SELFPAY | PROVIDERS: PCP Internal Medicine; Visit Provider Internal Medicine | DX: I10 Essential (primary) hypertension (principal) | CPT/HCPCS: 99212 ==

== ENCOUNTER 2025-02-09 09:46 | Outpatient (REF) | payer MEDICARE, OTHER, SELFPAY ==
--- OUTSIDE RECORDS SUMMARY | 2023-09-04 06:00 | XMS_ITS ---
Author Organization [facility] Address [address] [place] [id number] Care Team Providers Care Sales And Marketing Director Name Role Phone Donovan Medrano MD Primary Care Provider Levon Milligan Unavailable [phone] REASON FOR VISIT Patient presents today for a colon screening Encounters Encounter Location Date Provider Diagnosis [facility] [address] [place] [phone] 09/04/2023 Levon Garcia Plan Of Treatment No Information Progress Notes * July DDOB:[birth year] (69 yo F)Acc No.[id number]:09/04/2023 Progress Notes Patient: Cande IZQUIERDOJuly Provider: Harsh Garcia MD :1955 A ge:68 Y S ex:Female Date:09/04/2023 Address:[address] [place] [address] [address] , [facility] Pcp:Donovan Medrano MD Subjective: * Chief Complaints: * P atient presents today for a colon screening * The named appointment provid er may or may not be the originator of this progress note, and it is not deemed complete until electronically signed by the appointment provider. Sign off status: Pending * Provider: Harsh Garcia MD Date: 0 09/04/2023 Generated for Cynthia zavala/Mckinley/Camachoitting on: 1 04/12/2024 11:26 AM EST
--- OUTSIDE RECORDS SUMMARY | 2023-12-05 09:40 | XMS_ITS ---
Author Organization [facility] Address [address] [place] [phone] Care Team Providers Care Police Lieutenant Name Role Phone Donovan Medrano MD Primary Care Provider Levon Milligan [phone] REASON FOR VISIT colon screening Encounters Encounter Location Date Provider Diagnosis [facility] [address] [place] [phone] 12/05/2023 Levon Garcia Plan Of Treatment No Information Progress Notes * July DDOB:[birth year] (69 yo F)Acc No.[id number]:12/05/2023 Progress Notes Patient: Cande MCCRACKENJuly Provider: Harsh Garcia MD :1955 A ge:68 Y S ex:Female Date:12/05/2023 Address:[address] [place] [address] [address] , [facility] Pcp:Donovan Medrano MD Subjective: * Chief Complaints: * C olon screening * The named appointment provid er may or may not be the originator of this progress note, and it is not deemed complete until electronically signed by the appointment provider. Sign off status: Pending * Provider: Harsh Garcia MD Date: Generated for Cynthia zavala/Mckinley/Camachoitting on: 1 04/12/2024 11:27 AM EST
--- OUTSIDE RECORDS SUMMARY | 2024-05-24 04:50 | XMS_ITS ---
Author Organization [facility] Address [address] [place] [address] Care Team Providers Care Skin Care Instructor Name Role Phone Donovan Medrano MD Primary Care Provider Levon Milligan Unavailable [phone] REASON FOR VISIT screening,hx polyps, fe def anemia Encounters Encounter Location Date Provider Diagnosis [facility] [place] Out[place] [address] [place] [phone] 05/24/2024 Levon Garcia Colon cancer scree keli Z12.11 ; Personal history of colonic polyps Z86.0100 ; Colon polyps K63.5 and Other hemorrhoids K64.8 Assessments Encounter Date Diagnosis (ICD Code) Assessment Notes Treatment Notes Treatment Clinical Notes Section Notes 05/24/2024 Colon cancer screening (ICD-10 - Z12.11) 05/24/2024 Personal history of colonic polyps (ICD-10 - Z86.0100) 05/24/2024 Colon polyps (ICD-10 - K63.5) 05/24/2024 Other hemorrhoids (ICD-10 - K64.8) Plan Of Treatment No Information Progress Notes * July DDOB:[birth year] (69 yo F)Acc No.[id number]:05/24/2024 COLON WITH MAC Patient: Cande IZQUIERDOJuly Provider: Harsh Garcia MD :1955 A ge:69 Y S ex:Female Date:05/24/2024 Address:[address] [place] [address] [address] , [place], [place] Pcp:Donovan Medrano MD Subjective: * Chief Complaints: * S creening,hx polyps, fe def anemia Assessment: * Assessment: 1. C olon cancer screening - Z12.11 (Primary) 2 . P ersonal history of colonic polyps - Z86.0100 3 . C olon polyps - K63.5 4 . O ther hemorrhoids - K64.8 Plan: * Procedure Codes: 4 5385 LESION REMOVAL COLONOSCOPY, Modifiers: PT 0529F INTRVL 3+YRS PTS CLNSCP [id number] RCMND FLW-UP 10 YRS DOCD Billing Information: * Procedure Codes: 35147 LESION REMOVAL COLONOSCOPY. Modifiers: PT 0529F INTRVL 3+YRS PTS CLNSCP DOCD. 0528F RCMND FLW-UP 10 YRS DOCD. * The named appointment provid er may or may not be the originator of this progress note, and it is not deemed complete until electronically signed by the appointment provider. Sign off status: Pending * Provider: Harsh Garcia MD Date: 0 05/24/2024 Generated for Cynthia zavala/Mckinley/Camachoitting on: 1 04/12/2024 11:27 AM EST
--- NOTE | ~2025-02-09 | CT_ITS ---
EXAMINATION: CT LOW-DOSE SCREENING CHEST WITHOUT CONTRAST CLINICAL INFORMATION: 69-year-old female, current smoker, 50 pack years, lung cancer screening. COMPARISON: 01/19/2024, 05/05/2023, 01/15/2023. TECHNIQUE: Multidetector volumetric CT imaging of the chest is performed on a Siemens SOMATOM Definition scanner without contrast using low dose technique. Additional 2D coronal and sagittal reformatted images and axial 3D maximum intensity projection (MIP) images are generated on the CT workstation. This CT examination was performed using dose optimization techniques as appropriate, variously including the following: *Automated exposure control *Adjustment of mA and/or kV according to patient size (this includes techniques or standardized protocols for targeted exams where dose is matched to indication/reason for exam; i.e. extremities or head) *Use of iterative reconstruction technique FINDINGS: PULMONARY NODULES: 2 mm micronodule posterior right upper lobe (series 4, image 50), unchanged. Directly abutting 2 mm micronodule is also unchanged. There are no suspicious nodules in the left lung. There are no new or enlarging pulmonary nodules. LUNGS: Mild centrilobular emphysema. Mucoid impacted small airway of the right middle lobe laterally is unchanged. There are a few abutting tree-in-bud type micronodules, similar but increased when compared with the prior exam (refer to series 10, images 100-113). Mild thickening of the small airways is present, suggesting chronic bronchitis. There is a stable fat-containing right posterior diaphragmatic hernia. There are no effusions. There is no pneumothorax. MEDIASTINUM: The thyroid is grossly normal on CT imaging. There is no abnormal lymphadenopathy, or mass within the mediastinum. The aorta is moderately calcified, however there is no aneurysm. The pulmonary trunk has a normal size. The heart size is normal. There is a trace anterior pericardial effusion, unchanged. CORONARY ARTERY CALCIFICATION: Minimal CHEST WALL/AXILLA: There are likely postoperative changes in the right breast. There is no abnormal lymph nodes or mass. UPPER ABDOMEN: There is a simple cyst in segment 2 of the liver. There is a similar simple cyst in segment 7. Suspect a small hiatus hernia, type I. Remainder of the imaged upper abdominal contents appear normal allowing for noncontrast low dose technique. OSSEOUS STRUCTURES: There are no suspicious lytic or blastic bone lesions evident. There are mild to moderate degenerative changes throughout the spine. CT/CT lung screening IMPRESSION: 1. There are a few stable 2 mm micronodules in the right upper lobe. There are no new or enlarging pulmonary nodules. 2. There are mildly increasing clustered tree-in-bud nodules in the lateral right middle lobe, in keeping with infectious etiology. 3. There is mild centrilobular emphysema. There is mild thickening of the small airways in keeping with chronic bronchitis. ASSESSMENT: 1. Lung-RADS Category 2: Benign appearance or behavior of nodules. 2. Lung-RADS Category S: None. RECOMMENDATION: Continued routine annual low-dose CT lung screening in 1 year is recommended. An order for CT CHEST LOW DOSE CANCER SCREENING ([id number]) can be placed. Electronically signed by: Abdullahi Martinez MD 02/09/2025 10:41 AM LAVELL BENNETT
--- OUTSIDE RECORDS SUMMARY | 2025-02-09 11:27 | XMS_ITS | Patient Health Record ---
Author Organization [facility] Address [address] [place] [address] Care Team Providers Care Screen Making Technician Name Role Phone Marcela KAUFMAN, Donovan Primary Care Provider Levon Milligan Unavailable [phone] Allergies No Known Allergies Results Component Value Reference Range Flag Notes Complete Blood Count Auto Di ff Reviewed date:05/23/2024 11:25:11 PM Interpretation: Performing Lab:[facility], [address] [place] [id number] Notes/Report: White Blood Count 5.9 4.8-10.8 X10*3/uL N Red Blood Count 3.80 4.20-5.50 X10*6/uL L Hemoglobin 12.6 12.0-16.0 g/dl Hematocrit 36.7 37.0-47.0 % L Mean Corpuscular Volume 96.6 80.0-98.0 fL N Mean Corpuscular Hemoglobin 33.2 27.0-33.0 pg H Mean Corpuscular HGB Conc 34.3 31.0-35.0 g/dl N Red Cell Distribution Width 12.5 11.0-16.0 % N Platelet Count 271 160-400 X10*3/uL N Mean Platelet Volume 9.9 9.4-12.3 fL N Neutrophils Percent Auto 72.5 45-73 % N Imm Gran Pct Auto 0.3 0.0-0.4 % N Lymphocytes Percent Auto 13.8 20-40 % L Monocytes Percent Auto 8.5 2-11 % N Eosinophils Percent Auto 4.1 0-4 % H Basophils Percent Auto 0.8 0-2 % N NRBC Pct Auto 0.0 0.0-0.2 /100WBC N Neutrophils Absolute Auto 4.3 2.0-8.3 x10*3/uL N Imm Gran Abs Auto 0.02 0.00-0.03 X10*3/uL N Lymphocytes Absolute Auto 0.8 1.2-4.9 X10*3/uL L Monocytes Absolute Auto 0.5 0.1-1.2 X10*3/uL N Eosinophils Absolute Auto 0.2 0.0-0.4 X10*3/uL N Basophils Absolute Auto 0.1 0.0-0.2 X10*3/uL N NRBC Abs Auto 0.000 0.0-0.012 X10*3/uL N Thyroid Stimulating Hormone Reviewed date:04/27/2024 12:42:08 PM Interpretation: Performing Lab:[address] [phone] Notes/Report: Thyroid Stimulating Hormone 1.05 0.32-4.0 uIU/mL N TSH 3rd Generation ([facility]) Hemoglobin A1c Reviewed date:04/27/2024 12:42:21 PM Interpretation: Performing Lab:[address] [phone] Notes/Report: Hemoglobin A1c % 6.4 <6.0 % H Hemoglobin A1C Reference Range Adults: 4.8 - [...] average glucose, using the formula of the [id number]-Gbfcgqe Average Glucose study (ADAG), Diabetes Care, Vol.31,#8, Sep. 2007 Pathology (Not yet reviewed by provider) Interpretation: Performing Lab:[address] [phone] Notes/Report: Glucose, Whole Blood Reviewed date:05/25/2024 12:17:03 AM Interpretation: Performing Lab:[facility], [address] [place] [phone] Notes/Report: Glucose, Whole Blood 141 60-115 mg/dL [facility] #: [phone] Reason For Referral No Information Medications Medication SIG (Take, Route, Frequency, Duration) Notes Start Date End Date Status Baby Aspirin Active buPROPion HCl ER (SR) 150 MG Tablet Extended Release 12 Hour 1 tablet in the morning Oral twice a day Active Iron Active LORazepam 1 MG Tablet TAKE 1 TABLET ORAL LY EVERY 6 TO 8 HOURS NEEDED FOR ANXIETY Oral; Duration: 7 Not-Taking/PRN Albuterol Sulfate HFA 108 (90 Base) MCG/ACT Aerosol Solution INHALE 2PUFFS EVERY 4 TO 6 HOURS NEEDED FOR SHORTNESS OF BREATH OR WHEEZING FOR 30 DAYS Inhalation; Duration: 17 Active Lisinopril 10 MG Tablet Oral; Duration: 90 Active Wixela Inhub 500-50 MCG/ACT Aerosol Powder Breath Activated Inhalation; Duration: 30 Active Omeprazole 20 MG Capsule Delayed Release Oral; Duration: 90 PRN Active FLUoxetine HCl 20 MG Capsule Oral; Duration: 90 Active metFORMIN HCl 500 MG Tablet Oral; Duration: 90 Active traMADol HCl 50 MG Tablet Oral; Duration: 15 Active Atorvastatin Calcium 80 MG Tablet Oral; Duration: 90 Active Social History Tobacco Use: Social History Observation Description Date Details (start date - stop date) Current Smoker NA - NA Social History Drugs/Alcohol: Social Info Question Answer Notes Alcohol Screen Did you have a drink containing alcohol in the past year? Yes How often did you have a drink containing alcohol in the past year? 2 to 3 times a week (3 points) How many drinks did you have on a typical day when you were drinking in the past year? 3 or 4 drinks (1 point) How often did you have 6 or more drinks on one occasion in the past year? Never (0 point) Points 4 Interpretation Positive Tobacco Use: Social Info Question Answer Notes Tobacco Use/Smoking Patient is a current smoker How often do you smoke cigarettes? every day How many cigarettes a day do you smoke? 6-10 Are you interested in quitting? 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 Section Notes: Smoker; drinks 3-4 beers a f ew times a week Smoker; drinks 3-4 beers a f ew times a week Problems Problem Type SNOMED Code ICD Code Onset Dates Problem Status W/U Status Risk Notes Problem Colon cancer screening (628820778) Colon cancer screening (Z12.11) Active confirmed Problem Iron deficiency anemia (18336697) Iron deficiency anemia (D50.9) Active confirmed Problem Abdominal distension (42805087) Abdominal distension (R14.0) Active confirmed Problem History of polyp of colon (situation) (860778221) History of colon polyps (Z86.0100) Active confirmed Vital Signs Blood pressure diastolic 00 mm Hg 02/10/2024 Height 5 ft 3 in in 02/10/2024 Blood pressure systolic 00 mm Hg 02/10/2024 Weight 174 lbs 02/10/2024 BMI 30.82 kg/m2 02/10/2024 Encounters Encounter Location Date Provider Diagnosis [facility] [address] [place], [place] [id number] 05/24/2024 Levon Garcia Colon cancer screening Z12.11 ; Personal history of colonic polyps Z86.0100 ; Colon polyps K63.5 and Other hemorrhoids K64.8 [facility] [address] [place] [address] 02/10/2024 Levon Garcia Iron deficiency anemia D50.9 ; History of colon polyps Z86.0100 and Colon cancer screening Z12.11 Assessments Encounter Date Diagnosis (ICD Code) Assessment Notes Treatment Notes Treatment Clinical Notes Section Notes 05/24/2024 Personal history of colonic polyps (ICD-10 - Z86.0100) 05/24/2024 Colon cancer screening (ICD-10 - Z12.11) 02/10/2024 Iron deficiency anemia (ICD-10 - D50.9) [...] that she is recovering nicely from her STAFF CYTOTECHNOLOGIST surgery over the summer and her ongoing [...] that she is recovering nicely from her STAFF CYTOTECHNOLOGIST surgery over the summer and her ongoing [...] that she is recovering nicely from her STAFF CYTOTECHNOLOG[employer] surgery over the summer and her ongoing [...] progress. 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 Alegre did the most recent exam sometime before 2019 Thinks she had an upper endo many years ago Denies [place],renal disease [place] hiatal hernia seen on CT scan of the chest in April of 2023.... 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 Guzmán at [employer]TOTECHN[employer] oncology at [facility]-she had removal of the left ovary and left fallopian tube--there was no malignancy Breast biopsy on 09/03/2023 - -she describes the diagnosis of breast cancer with DCIS -she describes 2 subsequent surgeries later in 2023 and then followed by radiation treatments through January of 2024
--- OUTSIDE RECORDS SUMMARY | 2025-02-09 11:28 | XMS_ITS | Patient Health Record ---
[facility] Address [address] [place] [address] Care Team Providers Care Day Guard Name Role Phone Donovan Medrano MD Primary Care Provider Unavaila tatum JiménezMaria Alejandrae Unavailable [phone] Reason For Referral No Information Medications Medication [...] behavior of connective and other soft tissues (82630657) S[place] (unspec.) (239.2) Active confirmed Problem Pain in limb (48636778) Pain in Limb (729.5) Active confirmed Problem Hallux valgus (714146998) Hallux Valgus (735.0) Active confirmed Problem Hammer toe (145897172) Hammer toe (735.4) Active confirmed Problem Metatarsalgia (20564592) Metatarsalgia (726.70) Active confirmed Problem Foot ulcer (55231774) Ulcer of Other Part of Foot (707.15) Active confirmed Problem Abscess /Cellulitis (682.7) Active confirmed Plan Of Treatment Pending Test Test Name Order Date [id number] Destruction, 1-10/15/201328325-Mvtv Destruction, 1-14 11/26/2013 08404- Debride <25 sq cm 04/13/2013 41951- Debride <25 sq cm 05/18/2013 61969- Debride <25 sq cm 06/22/2013 36701- Debride <25 sq cm 07/22/2013 85319 I&D ABSCESS- SIMPLE,SINGLE 014 [id number] I&D ABSCESS- SIMPLE,SINGLE 014 [id number] I&D ABSCESS- SIMPLE,SINGLE 014 [id number] I&D ABSCESS- SIMPLE,SINGLE 014 13688, [id number]/INJECT, JOINT/BURSA 0 06/22/2013 Insurance Providers Payer Name Payer Address Payer Phone Subscriber Number Group Number Insured Name Patient Relationship to Insured Coverage Start Date Coverage End Date [facility] ([facility]) [address] [place] [phone] [id number] July Self - patient is the insured Medical (General) History Medical History History ICD Code Headaches High blood pressure Back,Hip,and Knee pain Psoriasis/eczema Chicken pox Surgical History Surgery Date(Month/Year) hysterectomy section
== END 2025-02-09 09:47 | disposition home or self-care (01) ==
LOC: HO.CT 09:46
PROVIDERS: PCP Internal Medicine; Visit Provider Physician Assistant Medical
DX: F17.210 Nicotine dependence, cigarettes, uncomplicated (principal)
CPT/HCPCS: 71271

== ENCOUNTER → 2025-02-09 09:50 | Outpatient (BNV) | payer MEDICARE, OTHER, SELFPAY | PROVIDERS: PCP Internal Medicine; Visit Provider Radiology Diagnostic Radiology | DX: F17.210 Nicotine dependence, cigarettes, uncomplicated (principal) | CPT/HCPCS: 71271 ==